=== PATIENT | female | born 1960 | race African-American/Black ===

== ENCOUNTER 2024-11-19 12:37 | Inpatient (IN) ==
[2024-11-19 13:44] LABS: Basophils # (auto) 0.05 K/uL (0.00-0.20); Basophils % (auto) 0.3 %; Eosinophils # (auto) 0.01 K/uL (0.00-0.50); Eosinophils % (auto) 0.1 %; Hematocrit (blood only) 37.8 % (37.0-47.0); Hemoglobin 12.4 g/dl (12.0-16.0); Immature Granulocytes # (auto) 0.11 K/uL (0.01-0.20); Immature Granulocytes % (auto) 0.7 %; Lymphocytes # (auto) 1.06 K/uL (1.20-3.40); Lymphocytes % (auto) 6.9 %; Mean Corpuscular Hemoglobin 28.8 pg (25.0-34.0); Mean Corpuscular Hgb Conc 32.8 g/dL (32.0-36.0); Mean Corpuscular Volume 87.9 fL (80.0-100.0); Monocytes # (auto) 0.84 K/uL (0.11-0.59); Monocytes % (auto) 5.4 %; Neutrophils # (auto) 13.38 K/uL (1.40-6.50); Neutrophils % (auto) 86.6 %; Platelet Count 186 K/uL (130-400); RDW Coefficient of Variation 14.6 % (11.5-14.5); White Blood Count 15.45 K/ul (4.8-10.8)
--- NOTE | 2024-11-19 13:55 | XRay Report ---
XR chest 1V portable CLINICAL HISTORY: Chest pain, nonspecific COMPARISON STUDY: Chest radiograph December 02, 2023. FINDINGS: Median sternotomy wires and prosthetic cardiac valve are noted. The heart is moderately enl arged. There is no evidence for pulmonary edema. Linear bibasilar densities favor atelectasis. There is no consolidation to suggest pneumonia. There is no pneumothorax or pleural effusion. IMPRESSION: 1. Cardiomegaly without evidence for pulmonary edema. 2. Linear bibasilar densities suggestive of atelectasis. ACT 112: Negative or not required by law. Electronically signed by: Adis Beltre M.D. 11/19/2024 1:54 PM
[2024-11-19] MEDS: SODIUM CHLORIDE 0.9% 1,000 ML IV SCH (14:02)
[2024-11-19] MEDS: dilTIAZem HCl 5 MG/ML 5 ML VIAL IV STA (14:02)
[2024-11-19] MEDS: SODIUM CHLORIDE 0.9% 500 ML IV ONE ×2 (14:02→15:33)
[2024-11-19 14:07] LABS: Albumin Level 3.4 gm/dl (3.4-5.0); BUN Creatinine Ratio 8.5 (10-20); Bilirubin,Total 1.1 mg/dl (0.2-1.0); Calcium 8.5 mg/dl (8.6-10.3); Creatinine Clr Calc Pharmacy 68.2 ml/min; Globulin 3.5 gm/dl (2.5-4.0); Magnesium 1.7 mg/dl (1.7-2.4); Potassium 4.2 mmol/L (3.5-5.1); Total Protein 6.9 gm/dl (6.0-8.3)
[2024-11-19 14:18] LABS: Troponin I High Sensitivity 142.3 pg/ml (0-14)
[2024-11-19] MEDS: MAGNESIUM SULFATE / D5W 1 GM/100 ML BAG IV ONE (14:24)
--- NOTE | 2024-11-19 14:35 | Emergency Department Note ---
Impression & Plan Atrial fibrillation with rapid ventricular response, Noncompliance with medications, Leukocytosis, Generalized weakness, Diarrhea ED Provider Note NAME: APARNA MCNALLY AGE: 64 SEX: Female INFORMANT: Patient and daughter ED PROVIDER(S): Pete Sebastian MD CHIEF COMPLAINT: Rapid A-fib and illness PLAN: Disposition: Admitted Outpatient prescription management: none Referral: None MEDICAL DECISION MAKING: Patient presented because of rapid atrial fibrillation from the primary office. She was in rapid A-fib with heart rates over 150. She was generally fatigued. Nonfocal on examination. [facility] service utilized for the history and physical examination. Daughter also present and helping with history. Patient had an IV established. ECG did not show any acute ischemia. Her CBC showed a leukocytosis. Chemistry panel revealed mildly low magnesium but normal potassium. Patient does have an elevated cardiac troponin. The patient had stool studies, BioFire, and chest x-ray ordered. Chest x-ray did not show any evidence of pneumonia. Mild cardiomegaly without failure present. Patient was given fluid bolus and started on diltiazem bolus and drip. Rate control was achieved. Head CT performed. No acute findings on head CT. Patient had good rate control however did have some mild hypotension. She received another fluid bolus and her rate was decreased and then held. BioFire respiratory negative. Cath urinalysis was ordered and further evaluation and management in the hospital was felt to be appropriate. The patient's case was discussed with Dr. Hanna of the [facility] hospitalist service. Case discussed and diagnostics were reviewed. Patient was evaluated in the ER and admitted for further management. Care/management discussed with: cafeteria manager, hospitalist Level of care consideration(s): After review of the information above and other included data, I feel the patient requires escalation of care to admission Triage Nursing notes: reviewed and agree them. Vital Signs: reviewed and remarkable for tachycardia Additional History obtained from: Patient's daughter Chronic Medical/Social Conditions affecting care: A-fib, medical noncompliance Prior/ Outside/ External records reviewed: none Differential Diagnosis: Infection, dehydration, metabolic abnormality, hypo/hyperglycemia, electrolyte disturbance, anemia, hypoxia, cardiac sources, intracerebral event, toxicologic, neurologic, as well as other pathologies. Diagnostics, independently interpreted by me: ECG: Twelve-lead ECG reveals atrial fibrillation with rapid ventricular response at [address] abnormality. No ST elevation. Cardiac Monitoring: Cardiac monitoring ordered by me: The patient was placed on continuous cardiac monitoring and observed. It revealed atrial fibrillation at 160 bpm. Medical decision rules: none Imaging studies: Chest x-ray. Findings: A chest x-ray was performed and revealed no pneumothorax, effusion, infiltrate, pulmonary edema, free air under the diaphragm, or wide mediastinum. Mild cardiomegaly noted. Head CT: A noncontrast CT scan of the head was performed and was negative for tumor, fracture, intracranial hemorrhage, or other acute pathology. HPI: 64 year old Female arrives for evaluation of rapid A-fib and generalized illness. Daughter is present and helps with the history. Patient was referred from the primary office after being found to have A-fib with RVR. They noted the patient was noncompliant with her metoprolol and patient notes that she takes it only from time to time. Daughter notes the patient has been generally weak over the last 2 weeks. She has had a runny nose. There has been some diarrhea over the last 3 days. Daughter feels the patient has had some history of confusion as well. She seems very fatigued. Patient denies any pain. Daughter did note that the patient did have some urinary urgency with an episode of incontinence this week. She also noted that the patient's legs were stiff and she was having difficulty walking. Pt denies LOC, headache, fevers, visual changes, neck pain, chest pain, breathing difficulties, nausea, vomiting, abdominal pain, back pain, melena, hematochezia, numbness, rash, or other complaints. PAST MEDICAL HISTORY: See Below, atrial fibrillation PAST SURGICAL HISTORY: See Below, SOCIAL HISTORY: See Below, lives with family HOME MEDICATIONS: See Below ALLERGIES: See Below VITALS: See Below PHYSICAL EXAMINATION: GENERAL: Awake, tired-appearing, in no distress HENT: Normocephalic, atraumatic. Oropharynx unremarkable. EYES: Normal conjunctiva. Sclera non-icteric. PERRLA. EOMI. NECK: Inspection normal. Non-tender. Supple. No nuchal rigidity. FROM. No masses. RESPIRATORY: Clear to auscultation. No wheezes. No rales. Normal respiratory effort. CARDIAC: Tachycardic rate. Irregular rhythm. No murmurs. No rubs. Extremities warm and well perfused. Pulses equal. No JVD. GI: Soft, non-distended. No tenderness to palpation. No rebound or guarding. No masses. RECTAL: Deferred. MUSCULOSKELETAL: Chest examination reveals no tenderness. The back is symmetrical on inspection without obvious abnormality. There is no CVA tenderness to palpation. No joint edema. LOWER EXTREMITIES: Calves are equal size bilaterally and non-tender. Trace pedal edema. No discoloration. NEURO: Normal sensorium. No sensory or motor deficits noted. SKIN: No rash or jaundice noted. PROCEDURES: none CRITICAL CARE: I have personally spent 35 minutes of critical care time in the direct management of this patient. This includes bedside care, interpretation of diagnostic studies, and testing, discussion with consultants, patient, and family members, and other required patient management activities. These minutes are in excess of all separately billable procedures. OBSERVATION NOTE: none Past Med/Surg History Problem List Diarrhea (Acute) Generalized weakness (Acute) Leukocytosis (Acute) Noncompliance with medications (Acute) Atrial fibrillation with rapid ventricular response (Acute) Heart failure with mid-range ejection fraction Cardiomyopathy Dyspnea on exertion Atrial fibrillation, permanent History of stroke Chronic GERD History of mitral valve replacement with mechanical valve Chronic anticoagulation (Chronic) History of heart valve replacement Medical History Rheumatic mitral valve disease Surgical History S/P wisdom tooth extraction Family History Father Colorectal cancer Denies family history of Ovarian cancer Prostate cancer Myocardial infarction Breast cancer Social History Smoking Status: Never smoker Second Hand Exposure: No; Do You Dip or Chew Tobacco: No; Hx Alcohol Use: Yes Alcohol type: wine Alcohol Intake Frequency: Monthly or Less Hx Substance Use: No Preferred Language: Croatian Communication Ability: Effective Communication Tools: IPad Visual Impairment: No Limitations Hearing Ability: Normal marital status: Single Current Living Situation: Other Current Living Situation Comment: WITH DAUGHTER current occupational status: unemployed and retired Feels Safe at Home: Yes Childhood Exposure to Second-Hand Smoke: No Diet: regular Dental Care, Regularly: No Physical Activity Frequency: Does not Exercise Seatbelt Use: always Sunscreen Use: Yes Allergies Allergies Allergy/AdvReac Type Severity Reaction Status Date / Time No Known Allergies Allergy Verified 11/19/24 15:42 Home Meds Home Medications Medication Instructions Recorded Confirmed acetaminophen 325 mg tablet 650 mg PO Q4H PRN headache 11/21/22 11/19/24 warfarin 4 mg tablet See Rx Instructions PO DAILY 10/29/24 11/19/24 Previous Rx's Medication Instructions Recorded hydrocortisone 2.5 % topical cream 1 applic topical BID PRN skin 10/01/21 irritation #28 grams compress.stocking,knee,reg,med #2 ea 04/28/23 digoxin 125 mcg (0.125 mg) tablet 125 mcg PO DAILY #90 tabs 11/06/23 metoprolol succinate 50 mg 200 mg (4 x 50 mg) PO DAILY #360 11/24/23 tablet,extended release 24 hr tabs furosemide 20 mg tablet 20 mg PO DAILY PRN short of breath 11/26/23 #90 tabs amoxicillin 500 mg capsule 2,000 mg (4 x 500 mg) PO .COMPLEX 01/19/24 #4 caps Results & Data (ED) Vital Signs Vital Signs - 24 hr 11/19/24 12:50 11/19/24 13:38 11/19/24 13:38 Temperature 36.8 C Temperature Source Skin Pulse Rate 98 H Pulse Rate [Apical] Pulse Rate from SpO2 Sensor Respiratory Rate 20 22 Respiratory Effort / Characteristics Non-Labored Spontaneous Respiratory Depth Normal Respiratory Pattern Regular Blood Pressure 122/64 Blood Pressure [Right Arm] Blood Pressure Mean 83 Blood Pressure Mean [Right Arm] Pulse Oximetry 99 98 Oxygen Delivery Method Room Air Room Air Room Air Sepsis Recent Fever Within 48 Hours No Sepsis New/Unexplained Change in Mental Status N/A Sepsis Action Taken by Nursing No Action Required 11/19/24 13:41 11/19/24 13:44 11/19/24 14:01 Temperature Temperature Source Pulse Rate 128 H 98 H Pulse Rate [Apical] 124 H Pulse Rate from SpO2 Sensor Respiratory Rate 20 24 Respiratory Effort / Characteristics Non-Labored Respiratory Depth Normal Respiratory Pattern Blood Pressure 103/68 Blood Pressure [Right Arm] 117/74 Blood Pressure Mean 77 Blood Pressure Mean [Right Arm] 88 Pulse Oximetry 97 97 Oxygen Delivery Method Room Air Room Air Sepsis Recent Fever Within 48 Hours Sepsis New/Unexplained Change in Mental Status Sepsis Action Taken by Nursing 11/19/24 14:12 11/19/24 14:21 11/19/24 14:51 Temperature Temperature Source Pulse Rate 96 H 93 H Pulse Rate [Apical] 119 H Pulse Rate from SpO2 Sensor 102 H 94 H Respiratory Rate 23 24 18 Respiratory Effort / Characteristics Non-Labored Respiratory Depth Normal Respiratory Pattern Blood Pressure Blood Pressure [Right Arm] 91/66 L Blood Pressure Mean Blood Pressure Mean [Right Arm] 74 Pulse Oximetry 98 99 98 Oxygen Delivery Method Room Air Sepsis Recent Fever Within 48 Hours Sepsis New/Unexplained Change in Mental Status Sepsis Action Taken by Nursing 11/19/24 15:30 11/19/24 15:32 11/19/24 15:57 Temperature Temperature Source Pulse Rate Pulse Rate [Apical] 97 H 110 H Pulse Rate from SpO2 Sensor Respiratory Rate 24 20 Respiratory Effort / Characteristics Non-Labored Spontaneous Non-Labored Spontaneous Respiratory Depth Normal Normal Respiratory Pattern Blood Pressure Blood Pressure [Right Arm] 96/65 L 89/60 L 105/70 Blood Pressure Mean Blood Pressure Mean [Right Arm] 75 69 81 Pulse Oximetry 98 96 Oxygen Delivery Method Room Air Room Air Sepsis Recent Fever Within 48 Hours Sepsis New/Unexplained Change in Mental Status Sepsis Action Taken by Nursing Laboratory Data 11/19/24 13:29 11/19/24 13:29 Lab Results 11/19/24 11/19/24 11/19/24 Range/Units 13:29 15:23 Unknown WBC 15.45 H (4.8-10.8) K/ul RBC 4.30 (4.20-5.40) M/uL Hgb 12.4 (12.0-16.0) g/dl Hct 37.8 (37.0-47.0) % MCV 87.9 (80.0-100.0) fL MCH 28.8 (25.0-34.0) pg MCHC 32.8 (32.0-36.0) g/dL RDW Std Deviation 47.0 H (36.4-46.3) fL RDW Coeff of Jason 14.6 H (11.5-14.5) % Plt Count 186 (130-400) K/uL MPV 12.0 (9.4-12.4) fL Immature Gran % (Auto) 0.7 % Neut % (Auto) 86.6 % Lymph % (Auto) 6.9 % [place] % (Auto) 5.4 % Eos % (Auto) 0.1 % Baso % (Auto) 0.3 % Neut # (Auto) 13.38 H (1.40-6.50) K/uL Lymph # (Auto) 1.06 L (1.20-3.40) K/uL [place] # (Auto) 0.84 H (0.11-0.59) K/uL Eos # (Auto) 0.01 (0.00-0.50) K/uL Baso # (Auto) 0.05 (0.00-0.20) K/uL Immature Gran # (Auto) 0.11 (0.01-0.20) K/uL PT 22.7 H (9.0-12.0) Seconds INR 2.2 H (0.9-1.1) APTT 35 H (21-31) Seconds PTT Ratio 1.3 Sodium 132 L (136-145) mmol/L Potassium 4.2 (3.5-5.1) mmol/L Chloride 98 (98-107) mmol/L Carbon Dioxide 29 (21-32) mmol/L Anion Gap 5 (3-11) BUN 6 (6-23) mg/dl Creatinine 0.71 (0.6-1.2) mg/dl Est Cr Clr Drug Dosing 68.2 ml/min eGFR 94.30 BUN/Creatinine Ratio 8.5 L (10-20) Glucose 136 H (70-99(Fasting)) mg/dl Calcium 8.5 L (8.6-10.3) mg/dl Magnesium 1.7 (1.7-2.4) mg/dl Total Bilirubin 1.1 H (0.2-1.0) mg/dl AST 18 (13-39) U/L ALT 6 L (7-52) U/L Alkaline Phosphatase 93 (34-104) U/L Troponin I High Sens 142.3 H* 167.1 H* (0-14) pg/ml Total Protein 6.9 (6.0-8.3) gm/dl Albumin 3.4 (3.4-5.0) gm/dl Globulin 3.5 (2.5-4.0) gm/dl Albumin/Globulin Ratio 1.0 (0.9-2) Adenovirus (PCR) Not Detected (NotDetected) B. pertussis DNA (PCR) Not Detected (NotDetected) B.parapertussis DNA PCR Not Detected (NotDetected) C. pneumoniae DNA (PCR) Not Detected (NotDetected) Coronavirus OC43 (PCR) Not Detected (NotDetected) Coronavirus HKU1 (PCR) Not Detected (NotDetected) Coronavirus 229E (PCR) Not Detected (NotDetected) SARS-CoV-2 (PCR) Not Detected (NotDetected) Coronavirus NL63 (PCR) Not Detected (NotDetected) Human Metapneumovir PCR Not Detected (NotDetected) Influenza Type A (PCR) Not Detected (NotDetected) Influenza Type B (PCR) Not Detected (NotDetected) M. pneumoniae (PCR) Not Detected (NotDetected) Parainfluenza 1 (PCR) Not Detected (NotDetected) Parainfluenza 2 (PCR) Not Detected (NotDetected) Parainfluenza 3 (PCR) Not Detected (NotDetected) Parainfluenza 4 (PCR) Not Detected (NotDetected) RSV (PCR) Not Detected (NotDetected) Entero/Rhino (PCR) Not Detected (NotDetected) Administered Medications Sodium Chloride (Nss) 1,000 mls @ 125 mls/hr IV .Q8H [facility] Stop: 11/22/24 13:59 Last Admin: 11/19/24 14:02 Dose: 125 mls/hr Documented By: MERCEDES Diltiazem HCl 125 mg/ Dextrose 125 mls @ 5 mls/hr IV .Q24H [facility]; Protocol Stop: 12/19/24 14:14 Last Titration: 11/19/24 15:23 Dose: 2.5 mg/hr, 2.5 mls/hr Documented By: MMG Co-signed By: SERENITY Admin: 11/19/24 14:50 Dose: 5 mg/hr, 5 mls/hr Documented By: MMG Co-signed By: PHAN Magnesium Sulfate/Dextrose (Magnesium Sulfate / D5w) 1 gm in 100 mls @ 50 mls/hr IV ONE ONE Stop: 11/19/24 16:10 Last Admin: 11/19/24 14:24 Dose: 50 mls/hr Documented By: MMG Discontinued Medications Diltiazem HCl (Diltiazem Hcl 5 Mg/Ml 5 Ml Vial) 10 mg IV NOW STA Stop: 11/19/24 13:53 Last Admin: 11/19/24 14:02 Dose: 10 mg Documented By: MERCEDES Co-signed By: YAS Sodium Chloride (Nss) 500 mls @ 999 mls/hr IV .Q31M ONE Stop: 11/19/24 14:22 Last Infusion: 11/19/24 14:29 Dose: Infused Documented By: Admin: 11/19/24 14:02 Dose: 999 mls/hr Documented By: MERCEDES Sodium Chloride (Nss) 500 mls @ 999 mls/hr IV .Q31M ONE Stop: 11/19/24 16:01 Last Admin: 11/19/24 15:33 Dose: 999 mls/hr Imaging Data Radiologist's Impression: Chest X-Ray 11/19/24 12:55 XR chest 1V portable CLINICAL HISTORY: Chest pain, nonspecific COMPARISON STUDY: Chest radiograph December 02, 2023. FINDINGS: Median sternotomy wires and prosthetic cardiac valve are noted. The heart is moderately enlarged. There is no evidence for pulmonary edema. Linear bibasilar densities favor atelectasis. There is no consolidation to suggest pneumonia. There is no pneumothorax or pleural effusion. IMPRESSION: 1. Cardiomegaly without evidence for pulmonary edema. 2. Linear bibasilar densities suggestive of atelectasis. ACT 112: Negative or not required by law. Electronically signed by: Adis Beltre M.D. 11/19/2024 1:[address] 11/19/24 13:57 CT SCAN OF THE BRAIN WITHOUT IV CONTRAST CLINICAL HISTORY: Weakness. Confusion. COMPARISON STUDY: TECHNIQUE: Unenhanced axial CT scan of the brain was performed from the vertex to the skull base. A dose lowering technique was utilized adhering to the principles of ALARA. CT DOSE: 547.75 mGy.cm FINDINGS: Brain parenchyma: No acute intracranial hemorrhage, midline shift or mass effect is present. Wilson-white matter differentiation is preserved. There are no extra- axial fluid collections. There are no findings to suggest acute dural sinus thrombosis or acute territorial infarct. A 1.6 cm focus of encephalomalacia within the medial right cerebellar hemisphere favors an old infarct. Small hypodensities within the bilateral basal ganglia favor prominent perivascular spaces although old infarcts could appear similar. Ventricles, sulci, cisterns: There is no hydrocephalus. The basal cisterns are patent. Calvarium: Unremarkable. Sinuses and mastoids: The visualized paranasal sinuses are clear. The mastoid air cells are well pneumatized. Orbits: The bony orbits are grossly intact. IMPRESSION: 1. No acute intracranial findings. 2. 1.6 cm focus of encephalomalacia within the right cerebellar hemisphere which favors an old infarct. ACT 112: Negative or not required by law. Electronically signed by: Adis Beltre M.D. 11/19/2024 3:02 PM Discharge Plan Visit Data Chief Complaint: Cardiac Assessment Stated Complaint: HIGH HEART RATE, WEAKNESS, DIARRHEA, MEMORY LOSS ED Provider: Pete Sebastian Discharge Problem: Atrial fibrillation with rapid ventricular response, Noncompliance with medications, Leukocytosis, Generalized weakness, Diarrhea Patient Disposition: Admitted As Inpatient Condition: Serious Forms Stand Alone Forms: Lenda Prescriptions Prescriptions: No Action acetaminophen 325 mg tablet 650 mg PO Q4H PRN (Reason: headache) warfarin 4 mg tablet See Rx Instructions PO DAILY Rx Instructions: PER PT'S DAUGHTER "UNSURE IF TAKING" 6mg qSaturday & 4mg x 6 days or as directed by [facility] metoprolol succinate 50 mg tablet extended release 24 hr 200 mg PO DAILY Qty: 360 3RF Rx Instructions: PER PT'S DAUGHTER "UNSURE WHEN SHE LAST TOOK THIS MED". furosemide 20 mg tablet 20 mg PO DAILY PRN (Reason: short of breath) Qty: 90 1RF Rx Instructions: take 2 days and then qday as needed (DME) compress.stocking,knee,reg,med Misc See Rx Instructions .Route Qty: 2 0RF Rx Instructions: As directed 15mmHg, R60.9 hydrocortisone 2.5 % cream 1 applic topical BID PRN (Reason: skin irritation) Qty: 28 1RF digoxin 125 mcg (0.125 mg) tablet 125 mcg PO DAILY Qty: 90 3RF Rx Instructions: PER PT'S DAUGHTER "BOTTLE EMPTY, UNSURE IF TAKING". amoxicillin 500 mg capsule 2,000 mg PO .COMPLEX Qty: 4 5RF Rx Instructions: 2,000 mg PO ; Take 4 caps 30-60 minutes prior to dental appointment Referrals Referrals: Angi Epperson MD [Primary Care Provider] -
[2024-11-19 14:49] LABS: INR 2.2 (0.9-1.1); Partial Thromboplastin Ratio 1.3; Partial Thromboplastin Time 35 Seconds (21-31); Prothrombin Time 22.7 Seconds (9.0-12.0)
[2024-11-19] MEDS: dilTIAZem HCL 125 MG in DEXTROSE 5% 100 ML IV SCH (14:50)
--- NOTE | 2024-11-19 15:05 | CT Scan Report ---
CT SCAN OF THE BRAIN WITHOUT IV CONTRAST CLINICAL HISTORY: Weakness. Confusion. COMPARISON STUDY: TECHNIQUE: Unenhanced axial CT scan of the brain was performed from the vertex to the skull base. A dose lowering technique was utilized adhering to the principles of ALARA. CT DOSE: 547.75 mGy.cm FINDINGS: Brain parenchyma: No acute intracranial hemorrhage, midline shift or mass effect is present. Wilson-whi te matter differentiation is preserved. There are no extra-axial fluid collections. There are no find ings to suggest acute dural sinus thrombosis or acute territorial infarct. A 1.6 cm focus of encephal omalacia within the medial right cerebellar hemisphere favors an old infarct. Small hypodensities wit hin the bilateral basal ganglia favor prominent perivascular spaces although old infarcts could appea r similar. Ventricles, sulci, cisterns: There is no hydrocephalus. The basal cisterns are patent. Calvarium: Unremarkable. Sinuses and mastoids: The visualized paranasal sinuses are clear. The mastoid air cells are well pneu matized. Orbits: The bony orbits are grossly intact. IMPRESSION: 1. No acute intracranial findings. 2. 1.6 cm focus of encephalomalacia within the right cerebellar hemisphere which favors an old infarc t. ACT 112: Negative or not required by law. Electronically signed by: Adis Beltre M.D. 11/19/2024 3:02 PM
[2024-11-19] MEDS: STAT IV Infusion **Titration per Protocol STA (15:33)
[2024-11-19 15:36] LABS: Adenovirus PCR Not Detected (NotDetected); Bordetella parapertussis PCR Not Detected (NotDetected); Bordetella pertussis PCR Not Detected (NotDetected); Chlamydia pneumoniae PCR Not Detected (NotDetected); Coronavirus 229E PCR Not Detected (NotDetected); Coronavirus CoV-2 (COVID19)PCR Not Detected (NotDetected); Coronavirus HKU1 PCR Not Detected (NotDetected); Coronavirus NL63 PCR Not Detected (NotDetected); Coronavirus OC43PCR Not Detected (NotDetected); Human Metapneumovirus PCR Not Detected (NotDetected); Influenza A PCR Not Detected (NotDetected); Influenza B PCR Not Detected (NotDetected); Mycoplasma pneumoniae PCR Not Detected (NotDetected); Parainfluenza Virus 1 PCR Not Detected (NotDetected); Parainfluenza Virus 2 PCR Not Detected (NotDetected); Parainfluenza Virus 3 PCR Not Detected (NotDetected); Parainfluenza Virus 4 PCR Not Detected (NotDetected); Respiratory Syncytial VirusPCR Not Detected (NotDetected); Rhinovirus/Enterovirus PCR Not Detected (NotDetected)
[2024-11-19] MEDS ORDERED: ONDANSETRON INJ 2 MG/ML 2 ML VIAL IV PRN (15:40)
--- NOTE | 2024-11-19 15:57 | History & Physical Report ---
Date of Service November 19, 2024 Assessment & Plan (1) Atrial fibrillation with rapid ventricular response: Plan: -on cardizem drip -con't metoprolol, digoxin -coumadin -echo -cardiology consulted -pt has been non compliant with medications (2) Heart failure with mid-range ejection fraction: Plan: -lasix held 2nd to hypotension (3) Diarrhea: Plan: -given IVF -likely 2nd to viral enteritis History of Present Illness Chief Complaint: sent from PMD office with afib with RVR Primary Care Provider: Angi Epperson MD Pt is a 64 y/o female with pmh of afib on coumadin, CHF, HTN, who present from PMD office after being found to be in afib with RVR. Pt's daughter states she is non compliant with her meds and takes her metoprolol from time to time. She also states the patient has been weak with episodes of diarrhea and confusion. In the ER patient had CT head which was negative. UA pending at this time. Pt denies any abdominal pain or fever. In the ER she was given a cardizem bolus and started on cardizem drip along with IVF. She is being admitted for further treatment of her afib with RVR. Allergies Allergy/AdvReac Type Severity Reaction Status Date / Time No Known Allergies Allergy Verified 11/19/24 15:42 Home Medications Medication Instructions Recorded Confirmed Type hydrocortisone 2.5 % topical cream 1 applic topical BID PRN skin 10/01/21 11/19/24 Rx irritation #28 grams acetaminophen 325 mg tablet 650 mg PO Q4H PRN headache 11/21/22 11/19/24 History compress.stocking,knee,reg,med #2 ea 04/28/23 11/19/24 Rx digoxin 125 mcg (0.125 mg) tablet 125 mcg PO DAILY #90 tabs 11/06/23 11/19/24 Rx metoprolol succinate 50 mg 200 mg (4 x 50 mg) PO DAILY #360 11/24/23 11/19/24 Rx tablet,extended release 24 hr tabs furosemide 20 mg tablet 20 mg PO DAILY PRN short of breath 11/26/23 11/19/24 Rx #90 tabs amoxicillin 500 mg capsule 2,000 mg (4 x 500 mg) PO .COMPLEX 01/19/24 11/19/24 Rx #4 caps warfarin 4 mg tablet See Rx Instructions PO DAILY 10/29/24 11/19/24 History Past Med/Surg History Problem List Diarrhea (Acute) Generalized weakness (Acute) Leukocytosis (Acute) Noncompliance with medications (Acute) Atrial fibrillation with rapid ventricular response (Acute) Heart failure with mid-range ejection fraction Cardiomyopathy Dyspnea on exertion Atrial fibrillation, permanent History of stroke Chronic GERD History of mitral valve replacement with mechanical valve Chronic anticoagulation (Chronic) History of heart valve replacement Medical History Rheumatic mitral valve disease Surgical History S/P wisdom tooth extraction Family History Father Colorectal cancer Denies family history of Ovarian cancer Prostate cancer Myocardial infarction Breast cancer Social History Smoking Status: Never smoker Second Hand Exposure: No; Do You Dip or Chew Tobacco: No; Hx Alcohol Use: Yes Alcohol type: wine Alcohol Intake Frequency: Monthly or Less Hx Substance Use: No Preferred Language: Pashto Communication Ability: Effective Communication Tools: IPad Visual Impairment: No Limitations Hearing Ability: Normal marital status: Single Current Living Situation: Other Current Living Situation Comment: WITH DAUGHTER current occupational status: unemployed and retired Feels Safe at Home: Yes Childhood Exposure to Second-Hand Smoke: No Diet: regular Dental Care, Regularly: No Physical Activity Frequency: Does not Exercise Seatbelt Use: always Sunscreen Use: Yes Review of Systems Review of Systems: CONST: Negative for fever, body aches and chills. HENT: Negative for neck pain/stiffness, headache, congestion, sore throat, swelling. EYES: Negative for discharge/pain or vision changes. RESP: Negative for cough/hemoptysis and shortness of breath. CV: Negative chest pain, difficulty breathing, palpitations. ABD: Negative pain, nausea, vomiting. Diarrhea : Negative increase frequency, dysuria, blood in urine or stool. MUSC: Negative for muscle aches, edema. SKIN: Negative rash, lesions/sores. NEURO: Negative headache, dizziness, weakness. Physical Exam Physical Exam: GENERAL APPEARANCE NAD, activity normal for age, well developed/ well nourished, no cyanosis, pallor, or diaphoresis. EYES lids/conjunctiva normal. EARS/NOSE/THROAT Mucous membranes moist, nares normal, lips/teeth normal uvula midline without oral pharyngeal erythema, exudate or swelling TMs normal bilaterally. No lymphangitis/lymphedema. HEAD/NECK normocephalic atraumatic, no facial trauma, neck is supple. RESPIRATORY respiratory effort normal, speaks in full sentences, no tripod position, no accessory muscle use. Lungs clear to auscultation without rhonchi, wheezes, rales CARDIAC Regular rate and rhythm, no edema. ABDOMINAL Soft, ND/NT. No evidence of fluid wave. No pulsatile masses on exam, rebound tenderness, Cordero sign or pain over Mcburney's point. MUSCLES/EXTREMITIES No abnormal range of motion, no swelling. SKIN Warm, pink and dry. No rashes, dermatoses, petechiae or lesions. NEUROLOGICAL Speech is clear and appropriate. Normal level of consciousness. Gait and coordination are normal. 5/5 strength in all extremities. PSYCH Normal mood and affect. Judgement/competence is appropriate Results & Data Results & Data Vital Signs (Past 12 Hours) Vital Signs Temp Pulse Pulse Resp BP BP Pulse Ox 11/19/24 15:32 89/60 L 11/19/24 15:30 97 H 24 96/65 L 98 11/19/24 14:51 119 H 18 91/66 L 98 11/19/24 14:21 93 H 24 99 11/19/24 14:12 96 H 23 98 11/19/24 14:01 98 H 24 103/68 97 11/19/24 13:44 124 H 20 117/74 97 11/19/24 13:41 128 H 11/19/24 13:38 22 98 11/19/24 13:38 11/19/24 12:50 36.8 C 98 H 20 122/64 99 O2 Del Method 11/19/24 15:32 11/19/24 15:30 Room Air 11/19/24 14:51 Room Air 11/19/24 14:21 11/19/24 14:12 11/19/24 14:01 Room Air 11/19/24 13:44 Room Air 11/19/24 13:41 11/19/24 13:38 Room Air 11/19/24 13:38 Room Air 11/19/24 12:50 Room Air PG Care Time/CCT Total # of Minutes Spent Total Time Spent with Patient: Total time spent is greater than 50% in coordination of care (as documented) at patient's floor/unit and/or counseling patient: Coding Level of Care Code 07548 INT INP/OBS CARE 2/55MIN Diagnoses Atrial fibrillation with rapid ventricular response I48.91 Heart failure with mid-range ejection fraction I50.22 Diarrhea R19.7
[2024-11-19] MEDS: METOPROLOL SUCC 50MG EXT REL TAB PO ONE (16:08)
[2024-11-19 16:16] LABS: Appearance Urine Clear (Clear); Bilirubin Urine Negative (Negative); Blood Urine Negative (Negative); Color Urine Yellow; Glucose Urine UA Negative (Negative); Ketones Urine Negative (Negative); Leukocyte Esterase Urine Negative (Negative); Nitrite Urine Negative (Negative); Protein Urine Negative (Negative); Specific Gravity Urine 1.007 (1.000-1.030); Urobilinogen Urine Negative (Negative); pH Urine 6.5 (4.5-7.5)
[2024-11-19] MEDS: DIGOXIN 0.125 MG TAB PO ONE (17:11)
[2024-11-19] MEDS: SODIUM CHLORIDE 0.9% 1,000 ML IV ONE (18:09)
[2024-11-19 18:21] LABS: Mean Corpuscular Hemoglobin 28.9 pg (25.0-34.0); Mean Corpuscular Hgb Conc 32.4 g/dL (32.0-36.0); Mean Corpuscular Volume 89.5 fL (80.0-100.0); Mean Platelet Volume 11.7 fL (9.4-12.4); Platelet Count 167 K/uL (130-400); RDW Coefficient of Variation 14.6 % (11.5-14.5); White Blood Count 13.18 K/ul (4.8-10.8)
[2024-11-19 18:40] LABS: BUN Creatinine Ratio 8.6 (10-20); Calcium 7.5 mg/dl (8.6-10.3); Potassium 3.8 mmol/L (3.5-5.1)
[2024-11-19] MEDS: WARFARIN SOD 4 MG TAB PO ONE (20:34)
--- NOTE | 2024-11-19 23:06 | Electrocardiogram Report ---
Test Reason : Blood Pressure : */* mmHG Vent. Rate : 158 BPM Atrial Rate : * BPM P-R Int : * ms QRS Dur : 78 ms QT Int : 244 ms P-R-T Axes : * 52 -9 degrees QTcB Int : 395 ms Atrial fibrillation with rapid ventricular response with premature ventricular or aberrantly conducte d complexes Nonspecific T wave abnormality Abnormal ECG When compared with ECG of 04-Dec-2023 13:51, (unconfirmed) Vent. rate has increased by 52 bpm Confirmed by Nicho Mena ([id number]) on 11/19/2024 11:06:16 PM Referred By: Confirmed By: Nicho Mena
[2024-11-20 06:45] LABS: Hematocrit (blood only) 38.9 % (37.0-47.0); Hemoglobin 12.4 g/dl (12.0-16.0); Mean Corpuscular Hemoglobin 28.7 pg (25.0-34.0); Mean Corpuscular Hgb Conc 31.9 g/dL (32.0-36.0); Mean Platelet Volume 12.1 fL (9.4-12.4); Platelet Count 190 K/uL (130-400); RDW Coefficient of Variation 14.8 % (11.5-14.5); RDW Standard Deviation 49.1 fL (36.4-46.3); Red Blood Count 4.32 M/uL (4.20-5.40); White Blood Count 11.78 K/ul (4.8-10.8)
[2024-11-20 07:10] LABS: BUN Creatinine Ratio 8.2 (10-20); Creatinine Clr Calc Pharmacy 76.1 ml/min; INR 2.9 (0.9-1.1); Prothrombin Time 28.4 Seconds (9.0-12.0)
--- NOTE | 2024-11-20 07:42 | Hospitalist Progress Note ---
Date of Service November 20, 2024 Assessment & Plan (1) Atrial fibrillation with rapid ventricular response: Plan: -on cardizem drip -con't metoprolol, digoxin -coumadin -echo -cardiology consulted -pt has been non compliant with medications (2) Heart failure with mid-range ejection fraction: Plan: -lasix held 2nd to hypotension (3) Diarrhea: Plan: -given IVF -likely 2nd to viral enteritis Plan 64 yo F with PMHx of AFib on coumadin, HFmEF, HTN brought to [facility] on 11/19/24 from PCP office after being found to be in AFib with RVR. Per daughter's report, pt is noncompliant with her meds and takes her metoprolol from time to time. Recently, pt has been weak after having episodes of diarrhea and confusion. #Atrial fibrillation with rapid ventricular response - possibly precipitated by noncompliance as well as diarrheal illness - on cardizem drip - con't metoprolol 200mg po daily, digoxin 0.125mg po daily - warfarin d/c-ed, placed on hep gtt - echo : mitral valve vegetation vs thrombus, RVSP 50-60 mmHg, mild hypokinesis of LV, EF: 40-45% - cardiology recs appreciated #Mitral valve vegetation - ECHO showing moderate size vegetation or mass on the mitral valve on the ventricular side (not present on ECHO from 12/2023) - discussed with cardiology, BCx, ESR, CRP drawn, started pt on heparin gtt (warfarin d/c-ed), will start pt on vanc / zosyn - THUY planned for Friday, NPO p MN placed for Friday. #HFrEF: - last ECHO 12/2023, EF 50-55%, currently EF is 40-45% - lasix held 2nd to hypotension #Elevated troponin - suspect Type II [place] - trend at this time #Hyponatremia - improving with hydration #Leukocytosis - endocarditis vs viral enteritis #Diarrhea - likely 2nd to viral enteritis - s/p IVF #HTN - cont metoprolol Admission and Anticipated Discharge Date Admission Date: November 19, 2024 Subjective No acute events overnight Per daughter, pt has been having increasing sedation over the past few weeks and decreased motivation. She stated that the pt thought she was just having flu. She also noted that pt does not take her metoprolol regularly. She does take her coumadin but not at the same time. Review of Systems Review of Systems: comprehensive ROS neg Physical Exam Physical Exam: Gen: NAD, lying in bed comfortable HEENT: NC/AT, MMM Lungs: CTAB CVS: [id number], irregular Abd: soft, nl bowel sounds, NT : no underwood Ext: no edema Neuro: awake, fatigued Psych: calm Results & Data Results & Data Vital Signs (Past 12 Hours) Vital Signs Temp Pulse Pulse Resp BP Pulse Ox O2 Del Method 11/20/24 04:20 36.5 C 89 17 106/78 94 Room Air 11/19/24 23:50 36.6 C 94 H 17 103/73 95 Room Air 11/19/24 21:53 90 11/19/24 21:04 74 11/19/24 20:02 80 PG Care Time/CCT Total # of Minutes Spent Total Time Spent with Patient: Total time spent is greater than 50% in coordination of care (as documented) at patient's floor/unit and/or counseling patient: Coding Level of Care Code 56015 SUB INP/OBS CARE 3/50MIN Diagnoses Atrial fibrillation with rapid ventricular response I48.91 Heart failure with mid-range ejection fraction I50.22 Diarrhea R19.7
[2024-11-20 08:23] LABS: Troponin I High Sensitivity 137.3 pg/ml (0-14)
[2024-11-20] MEDS: METOPROLOL SUCC 50MG EXT REL TAB PO SCH (09:03)
--- NOTE | 2024-11-20 11:12 | Cardiology Consultation ---
Date of Consultation November 20, 2024 Assessment & Plan (1) History of mitral valve replacement with mechanical valve: (2) Atrial fibrillation, permanent: (3) History of stroke: (4) Fever: (5) Leukocytosis: (6) Noncompliance with medications: Plan The echo findings were discussed with the hospitalist service. Would check CRP as well as blood cultures and ESR. Depending on those results if the sed rate and CRP come back elevated would presumptively start her on antibiotics. In the meantime we will change her Coumadin over to IV heparin. Will anticipate doing a transesophageal echo on her Friday. I will review her case with Dr. Birch. Would recommend maximizing her beta-ricky therapy to control her heart rate and stress noncompliance. History of Present Illness Reason for Consultation: Cardiac evaluation Attending Physician: Akila Griffith MD History of Present Illness Ailyn Coronado is a 63-year-old speaking woman who is known to Dr. Kayden Birch. She has been here in the [facility] for approximately 2 to 3 years according to her daughter. She has a longstanding history of rheumatic mitral valve disease which initially presented as stroke back in 1999 and was followed by a mechanical mitral valve replacement at [facility] in [place]. She has chronic atrial fibrillation as well and is on anticoagulation with Coumadin. Her daughter was available in the room and served as punch press setter for the patient. According to the daughter about 2 weeks ago she developed a period of confusion which seem to be worse than her prior baseline but the daughter also notes that the mother had fevers on that particular day associated with chills. Apparently the symptoms resolved on their own up until her coming into the hospital with A-fib with rapid ventricular response. Apparently the patient has difficulty taking her metoprolol 200 mg tablet and this is subsequently been changed to 4-50 mg tablets but she does not want to take somebody pills and there is an issue of noncompliance. Reviewing her protimes over the last several months her INRs have generally been above 2 however not in the recommended 2.5-3.5 range entirely. Her echo was done this morning and it was reviewed and compared to her prior echo from 2022 which was done at the [facility] cardiology office. There appears to be a new mass on the ventricular surface of the mitral valve. MR is not appreciated but she does have significant severe tricuspid regurgitation. The right heart is dilated as well. This has the appearance of a possible clot but cannot rule out endocarditis. This was discussed with the daughter and I am recommending that she undergo a transesophageal echo on Friday to further assess this valve. In the meantime because her INR was initially not therapeutic when she came in I am recommending that we start her on IV heparin until a better understanding of the problem is. Allergies Allergy/AdvReac Type Severity Reaction Status Date / Time No Known Allergies Allergy Verified 11/19/24 15:42 Home Medications Medication Instructions Recorded Confirmed Type hydrocortisone 2.5 % topical cream 1 applic topical BID PRN skin 10/01/21 11/19/24 Rx irritation #28 grams acetaminophen 325 mg tablet 650 mg PO Q4H PRN headache 11/21/22 11/19/24 History compress.stocking,knee,reg,med #2 ea 04/28/23 11/19/24 Rx digoxin 125 mcg (0.125 mg) tablet 125 mcg PO DAILY #90 tabs 11/06/23 11/19/24 Rx metoprolol succinate 50 mg 200 mg (4 x 50 mg) PO DAILY #360 11/24/23 11/19/24 Rx tablet,extended release 24 hr tabs furosemide 20 mg tablet 20 mg PO DAILY PRN short of breath 11/26/23 11/19/24 Rx #90 tabs amoxicillin 500 mg capsule 2,000 mg (4 x 500 mg) PO .COMPLEX 01/19/24 11/19/24 Rx #4 caps warfarin 4 mg tablet See Rx Instructions PO DAILY 10/29/24 11/19/24 History Patient History Medical History Rheumatic mitral valve disease Surgical History S/P wisdom tooth extraction Family History Father Colorectal cancer Denies family history of Ovarian cancer Prostate cancer Myocardial infarction Breast cancer Social History Smoking Status: Never smoker Second Hand Exposure: No; Do You Dip or Chew Tobacco: No; Hx Alcohol Use: Yes Alcohol type: wine Alcohol Intake Frequency: Monthly or Less Hx Substance Use: No Preferred Language: Upper Sorbian Communication Ability: punch press setter Communication Tools: IPad Visual Impairment: No Limitations Hearing Ability: Normal Rn Urology Required: Yes Beliefs That Will Affect Care: None marital status: Single Current Living Situation: Other Current Living Situation Comment: lives with daughter current occupational status: unemployed and retired Feels Safe at Home: Yes Childhood Exposure to Second-Hand Smoke: No Diet: regular Dental Care, Regularly: No Physical Activity Frequency: Does not Exercise Seatbelt Use: always Sunscreen Use: Yes Assistive Devices: None and Glasses Review of Systems Review of Systems: All systems reviewed & are unremarkable except as noted in HPI & below Constitutional: As noted above Physical Exam Physical Exam: Awake at times somewhat disoriented according to the daughter Respiratory: Clear to auscultation bilaterally Cardiovascular: Mechanical valve sounds are noted systolic murmur noted along the right border Results & Data Vital Signs (Past 12 Hours) Vital Signs Temp Pulse Pulse Resp BP Pulse Ox O2 Del Method 11/20/24 08:06 37.8 C H 100 H 18 100/77 96 Room Air 11/20/24 07:00 110 H 11/20/24 04:20 36.5 C 89 17 106/78 94 Room Air 11/19/24 23:50 36.6 C 94 H 17 103/73 95 Room Air Laboratory Results Abnormal lab results 11/19/24 11/19/24 11/19/24 Range/Units 13:29 15:23 18:04 WBC 15.45 H 13.18 H (4.8-10.8) K/ul RBC 3.80 L (4.20-5.40) M/uL Hgb 11.0 L (12.0-16.0) g/dl Hct 34.0 L (37.0-47.0) % MCHC (32.0-36.0) g/dL RDW Std Deviation 47.0 H 47.0 H (36.4-46.3) fL RDW Coeff of Jason 14.6 H 14.6 H (11.5-14.5) % Neut # (Auto) 13.38 H (1.40-6.50) K/uL Lymph # (Auto) 1.06 L (1.20-3.40) K/uL [place] # (Auto) 0.84 H (0.11-0.59) K/uL PT 22.7 H (9.0-12.0) Seconds INR 2.2 H (0.9-1.1) APTT 35 H (21-31) Seconds Sodium 132 L 134 L (136-145) mmol/L BUN 5 L (6-23) mg/dl Creatinine 0.58 L (0.6-1.2) mg/dl BUN/Creatinine Ratio 8.5 L 8.6 L (10-20) Glucose 136 H 108 H (70-99(Fasting)) mg/dl Calcium 8.5 L 7.5 L (8.6-10.3) mg/dl Total Bilirubin 1.1 H (0.2-1.0) mg/dl ALT 6 L (7-52) U/L Troponin I High Sens 142.3 H* 167.1 H* (0-14) pg/ml 11/20/24 Range/Units 06:07 WBC 11.78 H (4.8-10.8) K/ul RBC (4.20-5.40) M/uL Hgb (12.0-16.0) g/dl Hct (37.0-47.0) % MCHC 31.9 L (32.0-36.0) g/dL RDW Std Deviation 49.1 H (36.4-46.3) fL RDW Coeff of Jason 14.8 H (11.5-14.5) % Neut # (Auto) (1.40-6.50) K/uL Lymph # (Auto) (1.20-3.40) K/uL [place] # (Auto) (0.11-0.59) K/uL PT 28.4 H (9.0-12.0) Seconds INR 2.9 H (0.9-1.1) APTT (21-31) Seconds Sodium (136-145) mmol/L BUN 5 L (6-23) mg/dl Creatinine (0.6-1.2) mg/dl BUN/Creatinine Ratio 8.2 L (10-20) Glucose 121 H (70-99(Fasting)) mg/dl Calcium 8.0 L (8.6-10.3) mg/dl Total Bilirubin (0.2-1.0) mg/dl ALT (7-52) U/L Troponin I High Sens 137.3 H* (0-14) pg/ml ECG Additional Comments: A-fib with RVR
[2024-11-20] MEDS: HEPARIN 25000 UNIT/500 ML D5W 25,000 UNITS/500 ML BAG IV SCH (13:39)
[2024-11-20] MEDS: Heparin IV Adult Wt-Based Standard *NO* INITIAL Bolus Protocol IV STA (13:39)
[2024-11-20] MEDS ORDERED: VANCOMYCIN CONSULT ACTIVE PRN (14:11)
[2024-11-20] MEDS ORDERED: VANCOMYCIN HCL 1,000 MG/270 ML BAG IV SCH (14:15)
[2024-11-20] MEDS ORDERED: 4.5GM X1 IV STA (14:32)
[2024-11-20] MEDS: VANCOMYCIN HCL 1,250 MG in SODIUM CHLORIDE 0.9% 250 ML IV STA (14:51)
--- NOTE | 2024-11-20 15:07 | Pharmacy Report ---
Pharmacy PK ABX Note - Date of Service November 20, 2024 - Assessment and Plan Assessment 64 year old F receiving Vancomycin and Ceftriaxone for treatment of endocarditis. * Day #1 of antimicrobial therapy. * TTE showed mitral valve vegetation. Planned THUY for Friday. * Low grade fever, 37.8 C. Leukocytosis of 12k. SCr 0.61 mg/dL, near baseline. ESR/CRP mildly elevated. Blood cultures pending. Plan Vancomycin * Loading dose: 1250 mg IV x 1 * Maintenance dose: 1000 mg IV every 12 hours * Regimen is predicted to achieve target AUC/IMELDA of 400-600 mg/L.hr * Random level ordered for: 11/22/24 Ceftriaxone * 2000 mg IV every 12 hours Pharmacy will continue to follow and will adjust dose/frequency as necessary. Thank you. Pharmacy has transitioned to AUC monitoring for vancomycin. AUC/IMELDA is the preferred PK/PD target and is associated with decreased risk of nephrotoxicity compared to traditional trough targets.
[2024-11-20] MEDS ORDERED: WARFARIN SOD 4 MG TAB PO SCH (16:00)
[2024-11-20] MEDS ORDERED: WARFARIN SOD 6 MG TAB PO SCH (16:00)
[2024-11-20] MEDS: cefTRIAXone SODIUM 2,000 MG/50 ML BAG IV SCH (16:28)
[2024-11-20] MEDS: DIGOXIN 0.125 MG TAB PO SCH (17:55)
[2024-11-20 20:09] LABS: ANTI-Xa, UFH(UnfractionatedHep 0.18 IU/ml (0.3-0.7)
[2024-11-20] MEDS: HEPARIN SOD (PORCINE) 1000 UNIT/ML IV ONE (21:00)
[2024-11-20] MEDS ORDERED: PIPERACILLIN/TAZOBACTAM 4.5 GM/100 ML BAG IV SCH (22:00)
[2024-11-21] MEDS: VANCOMYCIN HCL 1,000 MG/270 ML BAG IV SCH (02:09)
[2024-11-21 04:25] LABS: ANTI-Xa, UFH(UnfractionatedHep 0.29 IU/ml (0.3-0.7)
[2024-11-21 04:42] LABS: A calco-baum cmplx NotReported Not Detected (NotDetected); Bact fragilis Not Reported Not Detected (NotDetected); Blood Culture Id Panel See PCR Comment (NotDetected); C auris Not Reported Not Detected (NotDetected); Calbicans Not Reported Not Detected (NotDetected); Candida glabrata Not Reported Not Detected (NotDetected); Candida krusei Not Reported Not Detected (NotDetected); Cneoformans/gatti Not Reported Not Detected (NotDetected); Cparapsilosis Not Reported Not Detected (NotDetected); Ctropicalis Not Reported Not Detected (NotDetected); E cloacae compx Not Reported Not Detected (NotDetected); Efaecalis Not Reported Not Detected (NotDetected); Efaecium Not Reported Not Detected (NotDetected); Enterobacterales Not Reported Not Detected (NotDetected); Escherichia coli Not Reported Not Detected (NotDetected); H influenzae Not Reported Not Detected (NotDetected); K aerogenes Not Reported Not Detected (NotDetected); Koxytoca Not Reported Not Detected (NotDetected); Kpneumoniae grp Not Reported Not Detected (NotDetected); Lmonocyt Not Reported Not Detected (NotDetected); N meningitidis Not Reported Not Detected (NotDetected); P aeruginosa Not Reported Not Detected (NotDetected); Proteus spp Not Reported Not Detected (NotDetected); Salmonella spp Not Reported Not Detected (NotDetected); Staph lugdunensis Not Reported Not Detected (NotDetected); Staph spp. Not Reported Not Detected (NotDetected); Staphaureus Not Reported Not Detected (NotDetected); Staphepi Not Reported Not Detected (NotDetected); Stenmaltophilia Not Reported Not Detected (NotDetected); Strep agal(GrpB) Not Reported Not Detected (NotDetected); Strep pneum Not Reported Not Detected (NotDetected); Strep pyog (GrpA) Not Reported Not Detected (NotDetected); Strep spp Not Reported DETECTED (NotDetected)
[2024-11-21 05:16] LABS: Streptococcus spp DETECTED (NotDetected)
[2024-11-21 06:22] LABS: Hematocrit (blood only) 32.4 % (37.0-47.0); Hemoglobin 10.7 g/dl (12.0-16.0); Mean Corpuscular Hemoglobin 29.3 pg (25.0-34.0); Mean Corpuscular Volume 88.8 fL (80.0-100.0); Mean Platelet Volume 12.4 fL (9.4-12.4); Platelet Count 176 K/uL (130-400); RDW Coefficient of Variation 14.4 % (11.5-14.5); RDW Standard Deviation 46.5 fL (36.4-46.3); Red Blood Count 3.65 M/uL (4.20-5.40); White Blood Count 10.38 K/ul (4.8-10.8)
[2024-11-21 06:38] LABS: BUN Creatinine Ratio 6.8 (10-20); Calcium 7.6 mg/dl (8.6-10.3); Creatinine Clr Calc Pharmacy 78.6 ml/min; Potassium 3.8 mmol/L (3.5-5.1)
[2024-11-21 06:47] LABS: INR 2.9 (0.9-1.1); Prothrombin Time 28.5 Seconds (9.0-12.0)
--- NOTE | 2024-11-21 07:53 | Hospitalist Progress Note ---
Date of Service November 21, 2024 Assessment & Plan (1) Atrial fibrillation with rapid ventricular response: (2) Heart failure with mid-range ejection fraction: (3) Diarrhea: Plan 64 yo F with PMHx of AFib on coumadin, HFmEF, HTN brought to [facility] on 11/19/24 from PCP office after being found to be in AFib with RVR. Per daughter's report, pt is noncompliant with her meds and takes her metoprolol from time to time. Recently, pt has been weak after having episodes of diarrhea and confusion. #Atrial fibrillation with rapid ventricular response - possibly precipitated by noncompliance as well as diarrheal illness - on cardizem drip - cont metoprolol 200mg po daily, digoxin 0.125mg po daily - warfarin d/c-ed, placed on hep gtt due to mitral valve thrombus vs vegetation - echo : mitral valve vegetation vs thrombus, RVSP 50-60 mmHg, mild hypokinesis of LV, EF: 40-45% - cardiology recs appreciated #Bacterial endocarditis #Mitral valve vegetation #GPC bacteremia - ECHO showing moderate size vegetation or mass on the mitral valve on the ventricular side (not present on ECHO from 12/2023) - discussed with cardiology, cont heparin gtt (warfarin d/c-ed) - cont vanc / ceftriaxone - THUY planned for Friday, NPO p MN placed for Friday. - ESR / CRP elevated - BCx 10/22 postive GPC in chains, rpt BCx ordered - ID consulted - hold off on PICC until BCx negative #HFrEF: - last ECHO 12/2023, EF 50-55%, currently EF is 40-45% - lasix d/c-ed 2nd to hypotension #Elevated troponin - suspect Type II [place] - trend at this time #Hyponatremia - improving with hydration #Diarrhea - resolved - likely 2nd to viral enteritis - s/p IVF #HTN - cont metoprolol Admission and Anticipated Discharge Date Admission Date: November 19, 2024 Subjective No acute events overnight This morning, pt is confused Review of Systems Review of Systems: comprehensive ROS neg Physical Exam Physical Exam: Gen: NAD, lying in bed comfortable HEENT: NC/AT, MMM Lungs: CTAB CVS: [id number], irregular Abd: soft, nl bowel sounds, NT : no underwood Ext: no edema Neuro: fatigued, confused Psych: calm Results & Data Results & Data Vital Signs (Past 12 Hours) Vital Signs Temp Pulse Pulse Resp BP BP Pulse Ox 11/21/24 07:33 37.4 C 105 H 19 133/77 95 11/21/24 03:44 37.1 C 71 17 133/82 97 11/21/24 00:04 36.8 C 88 17 120/75 96 11/20/24 21:39 114 H 11/20/24 20:12 37.9 C H 85 18 113/78 96 O2 Del Method 11/21/24 07:33 Room Air 11/21/24 03:44 Room Air 11/21/24 00:04 Room Air 11/20/24 21:39 11/20/24 20:12 Room Air PG Care Time/CCT Total # of Minutes Spent Total Time Spent with Patient: Total time spent is greater than 50% in coordination of care (as documented) at patient's floor/unit and/or counseling patient: Coding Level of Care Code 41535 SUB INP/OBS CARE 3/50MIN Diagnoses Atrial fibrillation with rapid ventricular response I48.91 Heart failure with mid-range ejection fraction I50.22 Diarrhea R19.7
--- NOTE | 2024-11-21 10:43 | Cardiology Progress Note ---
Date of Service November 21, 2024 Assessment & Plan (1) History of mitral valve replacement with mechanical valve: Plan: With abnormal echo density consistent with either endocarditis versus thrombus for THUY in a.m. to reassess. Continue IV antibiotics for now. Her anticoagulation with Coumadin was held yesterday and she was started on IV heparin. (2) Atrial fibrillation, permanent: (3) History of stroke: (4) Fever: (5) Leukocytosis: (6) Noncompliance with medications: Admission and Anticipated Discharge Date Admission Date: November 19, 2024 Srinath Coronado is a 63-year-old speaking woman who is known to Dr. Kayden Birch. She has been here in the [facility] for approximately 2 to 3 years according to her daughter. She has a longstanding history of rheumatic mitral valve disease which initially presented as stroke back in 1999 and was followed by a mechanical mitral valve replacement at [facility] in [place]. She has chronic atrial fibrillation as well and is on anticoagulation with Coumadin. Her daughter was available in the room and served as family practice md for the patient. According to the daughter about 2 weeks ago she developed a period of confusion which seem to be worse than her prior baseline but the daughter also notes that the mother had fevers on that particular day associated with chills. Apparently the symptoms resolved on their own up until her coming into the hospital with A-fib with rapid ventricular response. Apparently the patient has difficulty taking her metoprolol 200 mg tablet and this is subsequently been changed to 4-50 mg tablets but she does not want to take somebody pills and there is an issue of noncompliance. Reviewing her protimes over the last several months her INRs have generally been above 2 however not in the recommended 2.5-3.5 range entirely. Her echo was done this morning and it was reviewed and compared to her prior echo from 2022 which was done at the [facility] cardiology office. There appears to be a new mass on the ventricular surface of the mitral valve. MR is not appreciated but she does have significant severe tricuspid regurgitation. The right heart is dilated as well. This has the appearance of a possible clot but cannot rule out endocarditis. This was discussed with the daughter and I am recommending that she undergo a transesophageal echo on Friday to further assess this valve. In the meantime because her INR was initially not therapeutic when she came in I am recommending that we start her on IV heparin until a better understanding of the problem is Unfortunately her blood cultures since yesterday came back positive 2 out of 2 bottles of strep. She has been started on vancomycin and ceftriaxone. She has been much more confused and somewhat agitated overnight and this morning. I extensively reviewed the results with her daughter. She is on for the THUY tomorrow with Dr. Birch. Review of Systems Review of Systems: All systems reviewed & are unremarkable except as noted in HPI & below Physical Exam Physical Exam: resting in bed appears comfortable somewhat restless Constitutional: Her left elbow she has about a centimeter area of an eschar which appears to be somewhat deep. There were no evidence of emboli on her fingertips toes or nails Cardiovascular: Valve sounds crisp Systolic murmur along the right sternal border is noted I think this is tricuspid regurgitation Results & Data Vital Signs (Past 12 Hours) Vital Signs Temp Pulse Pulse Resp BP Pulse Ox O2 Del Method 11/21/24 07:33 37.4 C 105 H 19 133/77 95 Room Air 11/21/24 07:00 97 H 11/21/24 03:44 37.1 C 71 17 133/82 97 Room Air 11/21/24 00:04 36.8 C 88 17 120/75 96 Room Air Laboratory Results Abnormal lab results 11/20/24 11/20/24 11/21/24 Range/Units 13:24 19:16 03:20 RBC (4.20-5.40) M/uL Hgb (12.0-16.0) g/dl Hct (37.0-47.0) % RDW Std Deviation (36.4-46.3) fL ESR 38 H (0-30) mm/hr PT (9.0-12.0) Seconds INR (0.9-1.1) Heparin Anti-Xa, Unfract 0.18 L 0.29 L (0.3-0.7) IU/ml Anion Gap (3-11) BUN (6-23) mg/dl Creatinine (0.6-1.2) mg/dl BUN/Creatinine Ratio (10-20) Glucose (70-99(Fasting)) mg/dl Calcium (8.6-10.3) mg/dl C-Reactive Protein 7.41 H (0-0.5) mg/dl Streptococcus sp PCR DETECTED A (NotDetected) 11/21/24 Range/Units 05:38 RBC 3.65 L (4.20-5.40) M/uL Hgb 10.7 L (12.0-16.0) g/dl Hct 32.4 L (37.0-47.0) % RDW Std Deviation 46.5 H (36.4-46.3) fL ESR (0-30) mm/hr PT 28.5 H (9.0-12.0) Seconds INR 2.9 H (0.9-1.1) Heparin Anti-Xa, Unfract (0.3-0.7) IU/ml Anion Gap 2 L (3-11) BUN 4 L (6-23) mg/dl Creatinine 0.59 L (0.6-1.2) mg/dl BUN/Creatinine Ratio 6.8 L (10-20) Glucose 117 H (70-99(Fasting)) mg/dl Calcium 7.6 L (8.6-10.3) mg/dl C-Reactive Protein (0-0.5) mg/dl Streptococcus sp PCR (NotDetected) Diagnostic Findings Blood cultures x 2 bottles positive for strep
[2024-11-21 11:32] LABS: ANTI-Xa, UFH(UnfractionatedHep 0.28 IU/ml (0.3-0.7)
[2024-11-21] MEDS: ACETAMINOPHEN 325 MG TAB PO PRN (15:50)
[2024-11-21] MEDS ORDERED: WARFARIN SOD 4 MG TAB PO SCH (16:00)
[2024-11-21 18:41] LABS: ANTI-Xa, UFH(UnfractionatedHep 0.28 IU/ml (0.3-0.7)
[2024-11-22 01:35] LABS: ANTI-Xa, UFH(UnfractionatedHep 0.36 IU/ml (0.3-0.7)
[2024-11-22 06:24] LABS: Hemoglobin 10.5 g/dl (12.0-16.0); Mean Corpuscular Hemoglobin 28.5 pg (25.0-34.0); Mean Corpuscular Hgb Conc 32.8 g/dL (32.0-36.0); Mean Corpuscular Volume 86.7 fL (80.0-100.0); Mean Platelet Volume 12.3 fL (9.4-12.4); Platelet Count 187 K/uL (130-400); RDW Coefficient of Variation 14.5 % (11.5-14.5); RDW Standard Deviation 46.3 fL (36.4-46.3); Red Blood Count 3.69 M/uL (4.20-5.40)
[2024-11-22 06:46] LABS: BUN Creatinine Ratio 5.8 (10-20); Calcium 7.5 mg/dl (8.6-10.3); Creatinine Clr Calc Pharmacy 89.2 ml/min; Magnesium 1.4 mg/dl (1.7-2.4); Potassium 3.6 mmol/L (3.5-5.1)
[2024-11-22 06:47] LABS: Prothrombin Time 29.5 Seconds (9.0-12.0)
--- NOTE | 2024-11-22 07:11 | Anesthesiology Consultation ---
Date of Service November 22, 2024 Assessment & Plan Chart Review Chart Review: Acceptable Risk for Surgery and Patient NOT seen in Pre Admission Testing Consults Requested none History Surgery Operation Date: 11/22/24 07:30 Proposed Procedures p Transesophageal Echo - Alexsander Birch MD Height/Weight Height: 5 ft 3 in Weight: 62.7 kg Allergies Allergy/AdvReac Type Severity Reaction Status Date / Time No Known Allergies Allergy Verified 11/19/24 15:42 Medications Home Medications Medication Instructions Recorded Confirmed Last Taken hydrocortisone 2.5 % topical cream 1 applic topical BID PRN skin 10/01/21 11/19/24 Unknown irritation #28 grams acetaminophen 325 mg tablet 650 mg PO Q4H PRN headache 11/21/22 11/19/24 Unknown compress.stocking,knee,reg,med #2 ea 04/28/23 11/19/24 Unknown digoxin 125 mcg (0.125 mg) tablet 125 mcg PO DAILY #90 tabs 11/06/23 11/19/24 Unknown metoprolol succinate 50 mg 200 mg (4 x 50 mg) PO DAILY #360 11/24/23 11/19/24 Unknown tablet,extended release 24 hr tabs furosemide 20 mg tablet 20 mg PO DAILY PRN short of breath 11/26/23 11/19/24 Unknown #90 tabs amoxicillin 500 mg capsule 2,000 mg (4 x 500 mg) PO .COMPLEX 01/19/24 11/19/24 Unknown #4 caps warfarin 4 mg tablet See Rx Instructions PO DAILY 10/29/24 11/19/24 Unknown Active Medications Generic Name Dose Route Start Last Admin Trade Name Freq PRN Reason Stop Dose Admin Acetaminophen 650 mg 11/19/24 15:38 11/21/24 15:50 Acetaminophen 325 Mg Tab PO 12/19/24 15:37 650 mg Q4H PRN Administration headache Digoxin 0.125 mg 11/20/24 16:00 11/21/24 15:50 Digoxin 0.125 Mg Tab PO 12/20/24 15:59 0.125 mg DAILY@1600 TERESA Administration Sodium Chloride 1,000 mls @ 125 mls/hr 11/19/24 14:00 11/22/24 01:55 Nss IV 11/22/24 13:59 125 mls/hr .Q8H TERESA Administration Diltiazem HCl 125 mg/ Dextrose 125 mls @ 5 mls/hr 11/19/24 14:15 11/21/24 15:25 IV 12/19/24 14:14 Infused .Q24H TERESA Titration Protocol 5 MG/HR Heparin Sodium/Dextrose 25,000 units in 500 mls @ 25 mls/hr 11/20/24 13:15 11/22/24 06:53 Heparin 72280 Unit/500 Ml D5w IV 12/20/24 13:14 1,250 units/hr .Q20H TERESA 25 mls/hr Administration Protocol 1,250 UNITS/HR Ceftriaxone Sodium 2,000 mg in 50 mls @ 100 mls/hr 11/20/24 15:00 11/22/24 03:52 Rocephin IV 01/01/25 14:59 Infused Q12H TERESA Infusion Vancomycin HCl 1,000 mg in 270 mls @ 200 mls/hr 11/21/24 02:00 11/22/24 03:20 Vancomycin Hcl IV 01/02/25 01:59 Infused Q12H TERESA Infusion Metoprolol Succinate 200 mg 11/20/24 09:00 11/21/24 10:45 Metoprolol Succ 50mg Ext Rel Tab PO 12/20/24 08:59 200 mg DAILY TERESA Administration Past Medical History Medical History Rheumatic mitral valve disease Past Family History Family History Father Colorectal cancer Denies family history of Ovarian cancer Prostate cancer Myocardial infarction Breast cancer Past Surgical History Surgical History S/P wisdom tooth extraction Social History Smoking Status: Never smoker Do You Dip or Chew Tobacco: No Hx Alcohol Use: Yes Alcohol type: wine alcohol intake frequency: holidays/special occasions only Hx Substance Use: No substance use type: does not use Physical Exam Vital Signs Last Vital Signs Temp 37.6 C H 11/22/24 03:47 Pulse 82 11/22/24 02:48 Resp 18 11/22/24 02:48 BP 127/85 11/22/24 02:48 Pulse Ox 93 11/22/24 02:48 O2 Del Method Room Air 11/22/24 02:48 Testing Laboratory Results 11/22/24 05:57 11/22/24 05:57 PT 29.5 Seconds (9.0-12.0) H 11/22/24 05:57 INR 3.0 (0.9-1.1) H 11/22/24 05:57 APTT 35 Seconds (21-31) H 11/19/24 13:29 Urine Color Yellow 11/19/24 16:00 Urine Appearance Clear (Clear) 11/19/24 16:00 Urine pH 6.5 (4.5-7.5) 11/19/24 16:00 Ur Specific Beeler 1.007 (1.000-1.030) 11/19/24 16:00 Urine Protein Negative (Negative) 11/19/24 16:00 Urine Glucose (UA) Negative (Negative) 11/19/24 16:00 Urine Ketones Negative (Negative) 11/19/24 16:00 Urine Nitrite Negative (Negative) 11/19/24 16:00 Ur Leukocyte Esterase Negative (Negative) 11/19/24 16:00 11/20/24 13:24 Aerobic Blood Culture - Preliminary Blood Gram positive cocci in chains Anaerobic Blood Culture - Preliminary Gram positive cocci in chains 11/20/24 13:24 Aerobic Blood Culture - Preliminary Blood Gram positive cocci in chains Anaerobic Blood Culture - Preliminary Gram positive cocci in chains
--- NOTE | 2024-11-22 08:11 | Post Operative Brief Note ---
Cardiology Brief Post Op Date of Surgery November 22, 2024 Pre & Post Diagnosis Operation Date: 11/22/24 07:30 <No data on this case meets the specified criteria> Procedure THUY Platen Press Feeder Alexsander Birch MD Bleach Packer Tereso Estimated Blood Loss 0 Findings See Below Mechanical mitral valve with vegetations. Full report to follow. Complications none
[2024-11-22] MEDS ORDERED: LIDOCAINE 2% 2 ML VIAL/AMP(20MG/ML) INFIL ONE (08:12)
[2024-11-22] MEDS ORDERED: PROPOFOL IV EMULSION 10 MG/ML 20 ML VIAL IV ONE (08:12)
[2024-11-22] MEDS ORDERED: PHENYLEPHRINE 100MCG/ML 5ML SYR ONE (08:12)
--- NOTE | 2024-11-22 09:24 | Cardiology Progress Note ---
Date of Service November 22, 2024 Assessment & Plan (1) Prosthetic valve endocarditis: (2) Endocarditis: (3) Atrial fibrillation, permanent: (4) Cardiomyopathy: (5) Chronic anticoagulation: (6) History of mitral valve replacement with mechanical valve: (7) Tricuspid regurgitation: (8) Heart failure with mid-range ejection fraction: Plan ASSESSMENT/PLAN: 1. Mitral prosthetic valve endocarditis: Positive blood cultures and vegetations noted on mechanical mitral valve. On THUY, no obvious abscess or valve dehiscence. No urgent indication for surgical intervention at this time. Continue with IV antibiotics. Infectious disease consultation is pending. Source of bacteremia unclear. 2. Cardiomyopathy: Mildly reduced LV systolic function. May be related to tachycardia as she has been noncompliant with beta-ricky therapy in the outpatient setting. Chronic finding. Continue metoprolol succinate. 3. Chronic heart failure with midrange EF: She appears euvolemic. Continue metoprolol succinate. Will consider ARNI. No changes made today in this regard given more acute issues. 4. Atrial fibrillation: Permanent. She has been noncompliant in the outpatient setting with metoprolol succinate. She apparently had difficulty swallowing the medication and the dose was reduced but with increased pills to maintain constant dose. Her daughter states that she did not wish to continue with so many pills. Continue metoprolol succinate here as she seems to be tolerating it well. Can continue digoxin. Digoxin level ordered. Continue anticoagulation for stroke risk reduction. Monitor CBC periodically. 5. 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 Goal INR 2.5-3.5. Can resume warfarin at her previous dosing regimen and discontinue heparin to avoid issues with overlapping anticoagulation therapy in the future. Communicated with primary hospitalist. 6. Confusion: Noted by patient's daughter, Latisha, on 11/08/2024. Continues to be confused. As per primary hospitalist service. 7. Tricuspid regurgitation: Can continue to monitor in the outpatient setting. 8. Disposition: Cardiology will continue to follow. Patient care communicated with primary hospitalist service, Dr. Hanna. Patient care also discussed with patient's daughter, Latisha, via telephone. Admission and Anticipated Discharge Date Admission Date: November 19, 2024 Subjective Patient seen this morning before and after transesophageal echo. She seems confused. Conversation was held with raiser helper via iPad at the bedside. She did not always finish her thoughts per the pacu nurse but repeated her self several times. She denies chest pain or shortness of breath. She denied any pain. Regards to the transesophageal echo, consent was obtained via her daughter, Latisha, over the weekend by Dr. An. I confirmed with her daughter via telephone before the procedure the consent that was obtained by Dr. An. Risks and benefits were again reviewed with her daughter via telephone. Due to patient's confusion, she was unable to give consent herself. Her daughter confirmed that she was noncompliant with metoprolol. Apparently with metoprolol succinate 200 mg, she had difficulty swallowing the pill. Smaller doses more than prescribed in the outpatient setting but she did not prefer to take multiple pills (multiple 50 mg tablets to maintain her prior dose). Her daughter states she was compliant with warfarin however. Physical Exam Physical Exam: Gen.: No acute distress. Alert. HEENT: Anicteric sclera. Neck: Prominent V waves. Cardiac: Irregularly irregular. Normal heart rate. Normal S1-S2. No murmurs, rubs, or gallops. Pulmonary: Clear to auscultation bilaterally without wheezes, rales, or rhonchi. Abdomen: Soft, nontender, nondistended, with normoactive bowel sounds. No bruits noted. Extremities: 2+ radial pulses bilaterally. 2+ posterior tibialis pulses bilaterally. No edema or cyanosis. No Janeway lesions, Osler's nodes, or splinter hemorrhages noted. Results & Data Vital Signs (Past 12 Hours) Vital Signs Temp Pulse Pulse Resp BP Pulse Ox O2 Del Method 11/22/24 08:30 91 H 14 113/70 94 Room Air 11/22/24 08:15 85 14 101/69 94 Room Air 11/22/24 07:20 75 14 104/60 99 Room Air 11/22/24 03:47 37.6 C H 11/22/24 02:48 38.3 C H 82 18 127/85 93 Room Air 11/21/24 23:08 37.0 C 75 18 122/79 95 Room Air 11/21/24 21:59 86 Intake & Output 11/20/24 11/21/24 11/22/24 11/23/24 06:59 06:59 06:59 06:59 Intake Total 4103.167 / 4103.167 4485.550 / 4485.550 3751.45 / 3751.45 Output Total 975 / 975 2401 / 2401 2701 / 2701 Balance 3128.167 / 3128.167 2084.550 / 2084.550 1050.45 / 1050.45 Weight 138 lb 3.677 oz 138 lb 3.677 oz Laboratory Results Laboratory Results - last 24 hr 11/21/24 11/21/24 11/22/24 10:32 17:42 00:50 WBC RBC Hgb Hct MCV MCH MCHC RDW Std Deviation RDW Coeff of Jason Plt Count MPV PT INR Heparin Anti-Xa, Unfract 0.28 L 0.28 L 0.36 Sodium Potassium Chloride Carbon Dioxide Anion Gap BUN Creatinine Est Cr Clr Drug Dosing eGFR BUN/Creatinine Ratio Glucose Calcium Magnesium 11/22/24 05:57 WBC 9.90 RBC 3.69 L Hgb 10.5 L Hct 32.0 L MCV 86.7 MCH 28.5 MCHC 32.8 RDW Std Deviation 46.3 RDW Coeff of Jason 14.5 Plt Count 187 MPV 12.3 PT 29.5 H INR 3.0 H Heparin Anti-Xa, Unfract Sodium 134 L Potassium 3.6 Chloride 103 Carbon Dioxide 25 Anion Gap 6 BUN 3 L Creatinine 0.52 L Est Cr Clr Drug Dosing 89.2 eGFR 103.04 BUN/Creatinine Ratio 5.8 L Glucose 116 H Calcium 7.5 L Magnesium 1.4 L Diagnostic Findings Labs reviewed and notable for anemia, stable renal function, normal potassium, hypomagnesemia. Mildly elevated high-sensitivity troponin peaking at 167. INR 3. Blood cultures from 11/20/2024 are positive x 2 with Streptococcus gallolyticus. ECG personally reviewed 12-12: A-fib RVR 158 bpm. PVC versus aberrantly conducted complexes. Nonspecific T wave abnormality. Echo 11/20/2024 report: Mechanical mitral valve with vegetation/mass involving the mitral valve prosthesis. Significant TR. Elevated RVSP. LVEF 40-45%. Global hypokinesis. Transesophageal echo 11/22/2024: Mechanical mitral valve with vegetations. Formal review to follow. Moderate to severe tricuspid regurgitation on preliminary review. Medications Administered Current Inpatient Medications Acetaminophen (Acetaminophen 325 Mg Tab) 650 mg PO Q4H PRN PRN Reason: headache Stop: 12/19/24 15:37 Last Admin: 11/21/24 15:50 Dose: 650 mg Digoxin (Digoxin 0.125 Mg Tab) 0.125 mg PO DAILY@1600 [facility] Stop: 12/20/24 15:59 Last Admin: 11/21/24 15:50 Dose: 0.125 mg Sodium Chloride (Nss) 1,000 mls @ 125 mls/hr IV .Q8H [facility] Stop: 11/22/24 13:59 Last Admin: 11/22/24 01:55 Dose: 125 mls/hr Diltiazem HCl 125 mg/ Dextrose 125 mls @ 5 mls/hr IV .Q24H [facility]; Protocol Stop: 12/19/24 14:14 Last Titration: 11/21/24 15:25 Dose: Infused Heparin Sodium/Dextrose (Heparin 33100 Unit/500 Ml D5w) 25,000 units in 500 mls @ 25 mls/hr IV .Q20H [facility]; Protocol Stop: 12/20/24 13:14 Last Admin: 11/22/24 06:53 Dose: 1,250 units/hr, 25 mls/hr Ceftriaxone Sodium (Rocephin) 2,000 mg in 50 mls @ 100 mls/hr IV Q12H [facility] Stop: 01/01/25 14:59 Last Infusion: 11/22/24 03:52 Dose: Infused Vancomycin HCl (Vancomycin Hcl) 1,000 mg in 270 mls @ 200 mls/hr IV Q12H [facility] Stop: 01/02/25 01:59 Last Infusion: 11/22/24 03:20 Dose: Infused Metoprolol Succinate (Metoprolol Succ 50mg Ext Rel Tab) 200 mg PO DAILY [facility] Stop: 12/20/24 08:59 Last Admin: 11/21/24 10:45 Dose: 200 mg Miscellaneous Information (Vancomycin Consult Active) 1 each N/A UD PRN PRN Reason: Consult Stop: 12/20/24 14:10 Ondansetron HCl (Ondansetron Inj 2 Mg/Ml 2 Ml Vial) 4 mg IV Q6H PRN PRN Reason: Nausea Stop: 12/19/24 15:39 PG Care Time/CCT Total # of Minutes Spent Total Time Spent with Patient: Total time spent is greater than 50% in coordination of care (as documented) at patient's floor/unit and/or counseling patient: Coding Level of Care Code 16069 SUB INP/OBS CARE MIN Diagnoses Prosthetic valve endocarditis T82.6XXA; I33.0 Endocarditis I38 Atrial fibrillation, permanent I48.21 Cardiomyopathy I42.9 Chronic anticoagulation Z79.01 History of mitral valve replacement with mechanical valve Z95.2 Tricuspid regurgitation I07.1 Heart failure with mid-range ejection fraction I50.22
[2024-11-22] MEDS: BENZOCAINE/TETRACAIN/BUTAM 50 APPLN/5 GM CAN EXT ONE (09:37)
--- NOTE | 2024-11-22 09:41 | Anesthesiology Progress Note ---
Date of Service November 22, 2024 Anesthesia Post Procedure Vital Signs Vital Signs: Temp Pulse Pulse Resp BP Pulse Ox O2 Del Method 11/22/24 08:30 91 H 14 113/70 94 Room Air 11/22/24 08:15 85 14 101/69 94 Room Air 11/22/24 07:20 75 14 104/60 99 Room Air 11/22/24 03:47 37.6 C H 11/22/24 02:48 38.3 C H 82 18 127/85 93 Room Air 11/21/24 23:08 37.0 C 75 18 122/79 95 Room Air 11/21/24 21:59 86 11/21/24 20:00 Room Air 11/21/24 19:44 37.0 C 90 22 123/83 95 Room Air 11/21/24 15:36 38.8 C H 93 H 17 133/77 94 Room Air 11/21/24 11:47 37.8 C H 91 H 18 123/82 97 Room Air Transfer of Care Handoff Completed per policy Notes Mental Status: alert / awake / arousable Patient Amnestic to Procedure: Yes Nausea / Vomiting: adequately controlled Pain: adequately controlled Airway Patency, RR, SpO2: stable & adequate BP & HR: stable & adequate Hydration State: stable & adequate Anesthetic Complications: no major complications apparent and Pt Satisfied with anesthetic care
--- NOTE | 2024-11-22 09:45 | Infectious Disease Consult ---
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 On presentation, pt was afebrile. Labs showed WBC 15.45. CXR without pulmonary edema or consolidation. CT head with no acute intracranial findings. A TTE on 11/20 showed a new mass on the mitral valve--clot vs endocarditis. Blood cultures were obtained on 11/20 and grew Strep gallolyticus in 4/ bottles. THUY on 11/21 showed a mechanical mitral valve vegetation, no obvious abscess or valve dehiscence. Per cardiology, no urgent indication for surgical intervention at this time. Recommendations: - Discontinued vancomycin - Continue ceftriaxone 2 g IV q24h - Follow-up Strep gallolyticus sensitivities - Follow-up blood culture clearance - Anticipate 6 week course of ceftriaxone from blood culture clearance - Strep gallolyticus bacteremia is associated with colon cancer--recommend a colonoscopy as outpatient Will continue to follow Consultation Information Consultation was provided via telemedicine using two-way real-time interactive telecommunication between the patient and the telemedicine provider. For the duration of the visit, the provider was performing the assessment from a different facility than the patient. This includesuse of bluetooth stethoscope forauscultationperformed by the telepresenter that the telemedicine provider can hear if described in the physical exam. [facility] contact information: Please call [facility] [phone]. 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 Pt had been ill for 2 weeks with shivers, body aches. Was only wanting to sleep. Had some confusion and diarrhea. She had not been taking her medications because she was not feeling well. On presentation, pt was afebrile. Labs showed WBC 15.45. RVP negative. UA negative. CXR without pulmonary edema or consolidation. CT head with no acute intracranial findings. A TTE on 11/20 showed a new mass on the mitral valve--clot vs endocarditis. Blood cultures were obtained on 11/20 and grew Strep gallolyticus in 4/ bottles. THUY on 11/21 showed a mechanical mitral valve vegetation, no obvious abscess or valve dehiscence. Per cardiology, no urgent indication for rivero rgical intervention at this time. Allergies Allergy/AdvReac Type Severity Reaction Status Date / Time No Known Allergies Allergy Verified 11/19/24 15:42 Home Medications Medication Instructions Recorded Confirmed Type hydrocortisone 2.5 % topical cream 1 applic topical BID PRN skin 10/01/21 11/19/24 Rx irritation #28 grams acetaminophen 325 mg tablet 650 mg PO Q4H PRN headache 11/21/22 11/19/24 History compress.stocking,knee,reg,med #2 ea 04/28/23 11/19/24 Rx digoxin 125 mcg (0.125 mg) tablet 125 mcg PO DAILY #90 tabs 11/06/23 11/19/24 Rx metoprolol succinate 50 mg 200 mg (4 x 50 mg) PO DAILY #360 11/24/23 11/19/24 Rx tablet,extended release 24 hr tabs furosemide 20 mg tablet 20 mg PO DAILY PRN short of breath 11/26/23 11/19/24 Rx #90 tabs amoxicillin 500 mg capsule 2,000 mg (4 x 500 mg) PO .COMPLEX 01/19/24 11/19/24 Rx #4 caps warfarin 4 mg tablet See Rx Instructions PO DAILY 10/29/24 11/19/24 History Patient History Medical History Rheumatic mitral valve disease Surgical History S/P wisdom tooth extraction Family History Father Colorectal cancer Denies family history of Ovarian cancer Prostate cancer Myocardial infarction Breast cancer Social History Smoking Status: Never smoker Second Hand Exposure: No; Do You Dip or Chew Tobacco: No; Hx Alcohol Use: Yes Alcohol type: wine Alcohol Intake Frequency: Monthly or Less Hx Substance Use: No Preferred Language: Venezuelan 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 Communication Tools: Facial Expression, Physical Gestures and Other Visual Impairment: No Limitations Hearing Ability: Normal Automatic Nailing Machine Feeder Required: Yes Beliefs That Will Affect Care: None marital status: Single Current Living Situation: Other Current Living Situation Comment: lives with daughter current occupational status: unemployed and retired Feels Safe at Home: Yes Childhood Exposure to Second-Hand Smoke: No Diet: regular Dental Care, Regularly: No Physical Activity Frequency: Does not Exercise Seatbelt Use: always Sunscreen Use: Yes Assistive Devices: None and Glasses Review of System Unable to perform due to patient confusion Physical Exam Physical Exam: GEN: laying in bed in NAD. HEENT: Normocephalic, atraumatic. Good dentition RESP: breathing comfortably on room air ABD: Soft, non-distended. Non-tender to palpation. EXT: No LE edema. Warm, well-perfused. SKIN: No lesions or rashes on exposed skin. Results & Data Vital Signs (Past 12 Hours) Vital Signs Temp Pulse Pulse Resp BP Pulse Ox O2 Del Method 11/22/24 08:30 91 H 14 113/70 94 Room Air 11/22/24 08:15 85 14 101/69 94 Room Air 11/22/24 07:20 75 14 104/60 99 Room Air 11/22/24 03:47 37.6 C H 11/22/24 02:48 38.3 C H 82 18 127/85 93 Room Air 11/21/24 23:08 37.0 C 75 18 122/79 95 Room Air 11/21/24 21:59 86 Laboratory Results Short CBC 11/22/24 Range/Units 05:57 WBC 9.90 (4.8-10.8) K/ul Hgb 10.5 L (12.0-16.0) g/dl Hct 32.0 L (37.0-47.0) % Plt Count 187 (130-400) K/uL BMP 11/22/24 05:57 Sodium 134 L Potassium 3.6 Chloride 103 Carbon Dioxide 25 BUN 3 L Creatinine 0.52 L Glucose 116 H Calcium 7.5 L Diagnostic Findings Chest X-Ray 11/19/24 12:55 XR chest 1V portable CLINICAL HISTORY: Chest pain, nonspecific COMPARISON STUDY: Chest radiograph December 02, 2023. FINDINGS: Median sternotomy wires and prosthetic cardiac valve are noted. The heart is moderately enlarged. There is no evidence for pulmonary edema. Linear bibasilar densities favor atelectasis. There is no consolidation to suggest pneumonia. There is no pneumothorax or pleural effusion. IMPRESSION: 1. Cardiomegaly without evidence for pulmonary edema. 2. Linear bibasilar densities suggestive of atelectasis. ACT 112: Negative or not required by law. Electronically signed by: Adis Beltre M.D. 11/19/2024 1:[address] 11/19/24 13:57 CT SCAN OF THE BRAIN WITHOUT IV CONTRAST CLINICAL HISTORY: Weakness. Confusion. COMPARISON STUDY: TECHNIQUE: Unenhanced axial CT scan of the brain was performed from the vertex to the skull base. A dose lowering technique was utilized adhering to the principles of ALARA. CT DOSE: 547.75 mGy.cm FINDINGS: Brain parenchyma: No acute intracranial hemorrhage, midline shift or mass effect is present. Wilson-white matter differentiation is preserved. There are no extra- axial fluid collections. There are no findings to suggest acute dural sinus thrombosis or acute territorial infarct. A 1.6 cm focus of encephalomalacia within the medial right cerebellar hemisphere favors an old infarct. Small hypodensities within the bilateral basal ganglia favor prominent perivascular spaces although old infarcts could appear similar. Ventricles, sulci, cisterns: There is no hydrocephalus. The basal cisterns are patent. Calvarium: Unremarkable. Sinuses and mastoids: The visualized paranasal sinuses are clear. The mastoid air cells are well pneumatized. Orbits: The bony orbits are grossly intact. IMPRESSION: 1. No acute intracranial findings. 2. 1.6 cm focus of encephalomalacia within the right cerebellar hemisphere which favors an old infarct. ACT 112: Negative or not required by law. Electronically signed by: Adis Beltre M.D. 11/19/2024 3:02 PM Medications Administered Current Inpatient Medications Acetaminophen (Acetaminophen 325 Mg Tab) 650 mg PO Q4H PRN PRN Reason: headache Stop: 12/19/24 15:37 Last Admin: 11/21/24 15:50 Dose: 650 mg Digoxin (Digoxin 0.125 Mg Tab) 0.125 mg PO DAILY@1600 [facility] Stop: 12/20/24 15:59 Last Admin: 11/21/24 15:50 Dose: 0.125 mg Sodium Chloride (Nss) 1,000 mls @ 125 mls/hr IV .Q8H [facility] Stop: 11/22/24 13:59 Last Admin: 11/22/24 09:37 Dose: 125 mls/hr Heparin Sodium/Dextrose (Heparin 02295 Unit/500 Ml D5w) 25,000 units in 500 mls @ 25 mls/hr IV .Q20H [facility]; Protocol Stop: 12/20/24 13:14 Last Admin: 11/22/24 06:53 Dose: 1,250 units/hr, 25 mls/hr Ceftriaxone Sodium (Rocephin) 2,000 mg in 50 mls @ 100 mls/hr IV Q12H [facility] Stop: 01/01/25 14:59 Last Infusion: 11/22/24 03:52 Dose: Infused Vancomycin HCl (Vancomycin Hcl) 1,000 mg in 270 mls @ 200 mls/hr IV Q12H [facility] Stop: 01/02/25 01:59 Last Infusion: 11/22/24 03:20 Dose: Infused Metoprolol Succinate (Metoprolol Succ 50mg Ext Rel Tab) 200 mg PO DAILY [facility] Stop: 12/20/24 08:59 Last Admin: 11/21/24 10:45 Dose: 200 mg Miscellaneous Information (Vancomycin Consult Active) 1 each N/A UD PRN PRN Reason: Consult Stop: 12/20/24 14:10 Ondansetron HCl (Ondansetron Inj 2 Mg/Ml 2 Ml Vial) 4 mg IV Q6H PRN PRN Reason: Nausea Stop: 12/19/24 15:39
[2024-11-22] MEDS: VANCOMYCIN LEVEL ONE (12:12)
--- NOTE | 2024-11-22 13:27 | Pharmacy Report ---
Pharmacy PK ABX Note - Date of Service November 22, 2024 - Assessment and Plan Assessment 11/22: * Day #3 of vancomycin and ceftriaxone for endocarditis. * ID consulted, awaiting evaluation. * Remains febrile, 24 Tmax of 38.8 C. Leukocytosis improving, 9.9k today. SCr trending down as well, 0.52 mg/dL today. * Strep gallalyticus growing in blood cultures, sensitivities pending. Repeat blood cultures pending. 11/20: 64 year old F receiving Vancomycin and Ceftriaxone for treatment of endoca rditis. * Day #1 of antimicrobial therapy. * TTE showed mitral valve vegetation. Planned THUY for Friday. * Low grade fever, 37.8 C. Leukocytosis of 12k. SCr 0.61 mg/dL, near baseline. ESR/CRP mildly elevated. Blood cultures pending. Plan Vancomycin * Current regimen: 1000 mg IV every 12 hours * Random level obtained 11/22/24 resulted as 8.9 mcg/mL. This is subtherapeutic. * Change to 1000 mg IV every 8 hours. Predicted AUC at steady state: 530 mg/L.hr * Repeat random level ordered for: 11/23/24 Ceftriaxone * 2000 mg IV every 12 hours Pharmacy will continue to follow and will adjust dose/frequency as necessary. Thank you. Pharmacy has transitioned to AUC monitoring for vancomycin. AUC/IMELDA is the preferred PK/PD target and is associated with decreased risk of nephrotoxicity compared to traditional trough targets.
[2024-11-22] MEDS ORDERED: VANCOMYCIN HCL 1,000 MG/270 ML BAG IV SCH (14:00)
--- NOTE | 2024-11-22 15:00 | Hospitalist Progress Note ---
Date of Service November 22, 2024 Assessment & Plan (1) Atrial fibrillation with rapid ventricular response: Plan: -off cardizem drip -metoprolol -lanoxin -coumadin (2) Heart failure with mid-range ejection fraction: Plan: - last ECHO 12/2023, EF 50-55%, currently EF is 40-45% - lasix d/c-ed 2nd to hypotension (3) Diarrhea: Plan: -resolved - likely 2nd to viral enteritis - s/p IVF (4) HTN (hypertension): Plan: -cont metoprolol (5) Valvular vegetation: Plan: -strep gallolyticus prosthetic mitral valve endocarditis -con' rocephin -will need 6 weeks of abx -blood culture clearance follow up -will need colonoscopy Plan 64 yo F with PMHx of AFib on coumadin, HFmEF, HTN brought to [facility] on 11/19/24 from PCP office after being found to be in AFib with RVR. Per daughter's report, pt is noncompliant with her meds and takes her metoprolol from time to time. Recently, pt has been weak after having episodes of diarrhea and confusion. Admission and Anticipated Discharge Date Admission Date: November 19, 2024 Subjective No events overnight Review of Systems Review of Systems: CONST: Negative for fever, body aches and chills. HENT: Negative for neck pain/stiffness, headache, congestion, sore throat, swelling. EYES: Negative for discharge/pain or vision changes. RESP: Negative for cough/hemoptysis and shortness of breath. CV: Negative chest pain, difficulty breathing, palpitations. ABD: Negative pain, nausea, vomiting. : Negative increase frequency, dysuria, blood in urine or stool. MUSC: Negative for muscle aches, edema. SKIN: Negative rash, lesions/sores. NEURO: Negative headache, dizziness, weakness. Physical Exam Physical Exam: GENERAL APPEARANCE NAD, activity normal for age, well developed/ well nourished, no cyanosis, pallor, or diaphoresis. EYES lids/conjunctiva normal. EARS/NOSE/THROAT Mucous membranes moist, nares normal, lips/teeth normal uvula midline without oral pharyngeal erythema, exudate or swelling TMs normal bilaterally. No lymphangitis/lymphedema. HEAD/NECK normocephalic atraumatic, no facial trauma, neck is supple. RESPIRATORY respiratory effort normal, speaks in full sentences, no tripod position, no accessory muscle use. Lungs clear to auscultation without rhonchi, wheezes, rales CARDIAC Regular rate and rhythm, no edema. ABDOMINAL Soft, ND/NT. No evidence of fluid wave. No pulsatile masses on exam, rebound tenderness, Crodero sign or pain over Mcburney's point. MUSCLES/EXTREMITIES No abnormal range of motion, no swelling. SKIN Warm, pink and dry. No rashes, dermatoses, petechiae or lesions. NEUROLOGICAL Speech is clear and appropriate. Normal level of consciousness. Gait and coordination are normal. 5/5 strength in all extremities. PSYCH Normal mood and affect. Judgement/competence is appropriate Results & Data Results & Data Vital Signs (Past 12 Hours) Vital Signs Temp Pulse Pulse Resp BP BP Pulse Ox 11/22/24 12:08 37.2 C 83 17 131/93 95 11/22/24 10:00 11/22/24 10:00 91 H 24 128/86 94 11/22/24 08:30 91 H 14 113/70 94 11/22/24 08:15 85 14 101/69 94 11/22/24 08:00 87 11/22/24 07:20 75 14 104/60 99 11/22/24 03:47 37.6 C H O2 Del Method 11/22/24 12:08 Room Air 11/22/24 10:00 Room Air 11/22/24 10:00 Room Air 11/22/24 08:30 Room Air 11/22/24 08:15 Room Air 11/22/24 08:00 11/22/24 07:20 Room Air 11/22/24 03:47 PG Care Time/CCT Total # of Minutes Spent Total Time Spent with Patient: Total time spent is greater than 50% in coordination of care (as documented) at patient's floor/unit and/or counseling patient: Coding Level of Care Code 89678 SUB INP/OBS CARE 2/35MIN Diagnoses Atrial fibrillation with rapid ventricular response I48.91 Heart failure with mid-range ejection fraction I50.22 Diarrhea R19.7 HTN (hypertension) I10 Valvular vegetation I33.0
[2024-11-22] MEDS: WARFARIN SOD 4 MG TAB PO SCH (16:06)
[2024-11-22] MEDS ORDERED: Nursing to Pharmacy Communication SCH (18:15)
--- NOTE | 2024-11-22 21:52 | XCELERA ---
[id number]
[2024-11-23 05:43] LABS: Hematocrit (blood only) 30.3 % (37.0-47.0); Hemoglobin 10.3 g/dl (12.0-16.0); Mean Corpuscular Hemoglobin 29.4 pg (25.0-34.0); Mean Corpuscular Volume 86.6 fL (80.0-100.0); Mean Platelet Volume 12.1 fL (9.4-12.4); Platelet Count 186 K/uL (130-400); RDW Coefficient of Variation 14.4 % (11.5-14.5); RDW Standard Deviation 45.6 fL (36.4-46.3)
[2024-11-23 06:00] LABS: BUN Creatinine Ratio 5.9 (10-20); Calcium 7.7 mg/dl (8.6-10.3); Potassium 3.5 mmol/L (3.5-5.1)
[2024-11-23 06:30] LABS: ANTI-Xa, UFH(UnfractionatedHep < 0.10 IU/ml (0.3-0.7); INR 3.2 (0.9-1.1)
--- NOTE | 2024-11-23 10:08 | Hospitalist Progress Note ---
Date of Service November 23, 2024 Assessment & Plan (1) Valvular vegetation: Plan: -strep gallolyticus prosthetic mitral valve endocarditis -con' rocephin -will need 6 weeks of abx -blood culture clearance follow up, repeat cultures drawn / -once cleared PICC placement and d/c -ID following -will need colonoscopy (2) Atrial fibrillation with rapid ventricular response: Plan: -off cardizem drip -metoprolol -lanoxin -coumadin (3) Heart failure with mid-range ejection fraction: Plan: - last ECHO 12/2023, EF 50-55%, currently EF is 40-45% - lasix d/c-ed 2nd to hypotension (4) Diarrhea: Plan: -resolved - likely 2nd to viral enteritis - s/p IVF (5) HTN (hypertension): Plan: -cont metoprolol Plan 64 yo F with PMHx of AFib on coumadin, HFmEF, HTN brought to [facility] on 11/19/24 from PCP office after being found to be in AFib with RVR. Per daughter's report, pt is noncompliant with her meds and takes her metoprolol from time to time. Recently, pt has been weak after having episodes of diarrhea and confusion. Pt with strep gallolyticus prosthetic mitral valve endocarditis -con' rocephin -will need 6 weeks of abx -blood culture clearance follow up, repeat cultures drawn 11/23 -once cleared PICC placement and d/c Admission and Anticipated Discharge Date Admission Date: November 19, 2024 Subjective No events overnight Review of Systems Review of Systems: CONST: Negative for fever, body aches and chills. HENT: Negative for neck pain/stiffness, headache, congestion, sore throat, swelling. EYES: Negative for discharge/pain or vision changes. RESP: Negative for cough/hemoptysis and shortness of breath. CV: Negative chest pain, difficulty breathing, palpitations. ABD: Negative pain, nausea, vomiting. : Negative increase frequency, dysuria, blood in urine or stool. MUSC: Negative for muscle aches, edema. SKIN: Negative rash, lesions/sores. NEURO: Negative headache, dizziness, weakness. Physical Exam Physical Exam: GENERAL APPEARANCE NAD, activity normal for age, well developed/ well nourished, no cyanosis, pallor, or diaphoresis. EYES lids/conjunctiva normal. EARS/NOSE/THROAT Mucous membranes moist, nares normal, lips/teeth normal uvula midline without oral pharyngeal erythema, exudate or swelling TMs normal bilaterally. No lymphangitis/lymphedema. HEAD/NECK normocephalic atraumatic, no facial trauma, neck is supple. RESPIRATORY respiratory effort normal, speaks in full sentences, no tripod position, no accessory muscle use. Lungs clear to auscultation without rhonchi, wheezes, rales CARDIAC Regular rate and rhythm, no edema. ABDOMINAL Soft, ND/NT. No evidence of fluid wave. No pulsatile masses on exam, rebound tenderness, Cordero sign or pain over Mcburney's point. MUSCLES/EXTREMITIES No abnormal range of motion, no swelling. SKIN Warm, pink and dry. No rashes, dermatoses, petechiae or lesions. NEUROLOGICAL Speech is clear and appropriate. Normal level of consciousness. Gait and coordination are normal. 5/5 strength in all extremities. PSYCH Normal mood and affect. Judgement/competence is appropriate Results & Data Results & Data Vital Signs (Past 12 Hours) Vital Signs Temp Pulse Pulse Resp BP BP Pulse Ox 11/23/24 09:09 86 126/84 11/23/24 07:40 36.7 C 83 22 101/61 96 11/23/24 07:26 80 11/23/24 04:41 36.7 C 88 17 116/73 95 11/23/24 00:09 36.8 C 86 17 117/75 96 O2 Del Method 11/23/24 09:09 11/23/24 07:40 Room Air 11/23/24 07:26 11/23/24 04:41 Room Air 11/23/24 00:09 Room Air PG Care Time/CCT Total # of Minutes Spent Total Time Spent with Patient: Total time spent is greater than 50% in coordination of care (as documented) at patient's floor/unit and/or counseling patient: Coding Level of Care Code 86457 SUB INP/OBS CARE 2/35MIN Diagnoses Valvular vegetation I33.0 Atrial fibrillation with rapid ventricular response I48.91 Heart failure with mid-range ejection fraction I50.22 Diarrhea R19.7 HTN (hypertension) I10
--- NOTE | 2024-11-23 11:04 | Cardiology Progress Note ---
Date of Service November 23, 2024 Assessment & Plan (1) Prosthetic valve endocarditis: (2) Endocarditis: (3) Atrial fibrillation, permanent: (4) Cardiomyopathy: (5) Chronic anticoagulation: (6) History of mitral valve replacement with mechanical valve: (7) Tricuspid regurgitation: (8) Heart failure with mid-range ejection fraction: Plan ASSESSMENT/PLAN: 1. Mitral prosthetic valve endocarditis: Positive blood cultures and vegetations noted on mechanical mitral valve. On THUY, no obvious abscess or valve dehiscence. No urgent indication for surgical intervention at this time. Continue with IV antibiotics. Infectious disease consultation appreciated. Source of bacteremia unclear. Repeat echo at 6 weeks therapy and possibly in 2 or 3 weeks in the outpatient setting for surveillance purposes. 2. Cardiomyopathy: Mildly reduced LV systolic function however LV function appears normal on transesophageal echo while heart rate was controlled. May be related to tachycardia as she has been noncompliant with beta-ricky therapy in the outpatient setting. Chronic finding. Continue metoprolol succinate. She had difficulty taking 200 mg tablets at home but chose not to take 50 mg tablets x 4. Discussed with patient's daughter today and would recommend on discharge 200 mg tablet but that she can crush it to make it easier to swallow. 3. Chronic heart failure with midrange EF: She appears possibly mildly hypervolemic. Will give dose of Lasix 20 mg IV x 1. Has used Lasix as needed in the outpatient setting. Continue metoprolol succinate. LV systolic function appeared improved on transesophageal echo while her heart rate is controlled with current rate controlling medications. Can repeat echo in the outpatient setting and if LV systolic function remains normal, ARNI would not be necessary. Consider SGLT2 inhibitor in the outpatient setting. 4. Atrial fibrillation: Permanent. She has been noncompliant in the outpatient setting with metoprolol succinate as noted above. She apparently had difficulty swallowing the medication and the dose was reduced but with increased pills to maintain constant dose. Her daughter states that she did not wish to continue with so many pills. Continue metoprolol succinate 200 mg. Can continue digoxin. Heart rate very well-controlled currently. Continue anticoagulation for stroke risk reduction. Monitor CBC periodically. 5. 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 Goal INR 2.5-3.5. Continue warfarin. Monitor CBC periodically. 6. Confusion: Noted by patient's daughter, Latisha, on 11/08/2024. Continues to be confused. As per primary hospitalist service. 7. Tricuspid regurgitation: Can continue to monitor in the outpatient setting. 8. Disposition: Cardiology will continue to follow. Patient care communicated with primary hospitalist service, Dr. Hanna. Patient care also discussed with patient's daughter, Latisha, at the bedside. Requested hospital follow-up in the cardiology office in 2 or 3 weeks. Admission and Anticipated Discharge Date Admission Date: November 19, 2024 Subjective Patient seen earlier today with her daughter at the bedside. She remains confused and seem to lose her train of thought when speaking to her daughter in Faroese, per her daughter's report. She denied chest pain or shortness of breath. Patient reported cough. Her daughter had several questions in regards to endocarditis, PICC line, hospital duration. They were answered to the best my ability. Today's conversation occurred with translation by her daughter as per patient/family request. Physical Exam Physical Exam: Gen.: No acute distress. Alert. HEENT: Anicteric sclera. Neck: Prominent V waves. Mild JVD. Hepatojugular reflux. Cardiac: Irregularly irregular. Normal heart rate. Normal S1-S2. No murmurs, rubs, or gallops. Pulmonary: Clear to auscultation bilaterally without wheezes, rales, or rhonchi. Abdomen: Soft, nontender, nondistended, with normoactive bowel sounds. No bruits noted. Extremities: 2+ radial pulses bilaterally. 2+ posterior tibialis pulses bilaterally. No edema or cyanosis. No Janeway lesions, Osler's nodes, or splinter hemorrhages noted. Results & Data Vital Signs (Past 12 Hours) Vital Signs Temp Pulse Pulse Resp BP BP Pulse Ox 11/23/24 09:09 86 126/84 11/23/24 07:40 36.7 C 83 22 101/61 96 11/23/24 07:26 80 11/23/24 04:41 36.7 C 88 17 116/73 95 11/23/24 00:09 36.8 C 86 17 117/75 96 O2 Del Method 11/23/24 09:09 11/23/24 07:40 Room Air 11/23/24 07:26 11/23/24 04:41 Room Air 11/23/24 00:09 Room Air Intake & Output 11/21/24 11/22/24 11/23/24 11/24/24 06:59 06:59 06:59 06:59 Intake Total 4485.550 / 4485.550 3751.45 / 3751.45 2400.416 / 2400.416 Output Total 2401 / 2401 2701 / 2701 2100 / 2100 Balance 2084.550 / 2084.550 1050.45 / 1050.45 300.416 / 300.416 Weight 138 lb 3.677 oz Laboratory Results Laboratory Results - last 24 hr 11/22/24 11/22/24 11/23/24 11:57 14:51 05:27 WBC 8.30 RBC 3.50 L Hgb 10.3 L Hct 30.3 L MCV 86.6 MCH 29.4 MCHC 34.0 RDW Std Deviation 45.6 RDW Coeff of Jason 14.4 Plt Count 186 MPV 12.1 PT 31.0 H INR 3.2 H Heparin Anti-Xa, Unfract < 0.10 L Sodium 137 Potassium 3.5 Chloride 106 Carbon Dioxide 28 Anion Gap 3 BUN 3 L Creatinine 0.51 L Est Cr Clr Drug Dosing 91.0 eGFR 103.53 BUN/Creatinine Ratio 5.9 L Glucose 99 Calcium 7.7 L Random Vancomycin 8.9 L Digoxin < 0.3 L Diagnostic Findings Labs reviewed and notable for stable renal function, normal potassium, normal hemoglobin, undetectable digoxin level. Therapeutic INR. Blood cultures 11/21/2024: Negative x 2. Blood cultures 11/20/2024: Streptococcus gallalyticus x 2. Telemetry personally reviewed: Atrial fibrillation with adequate rate control. THUY 11/22/2024: LVEF 60-65%. Normal wall motion. Severe left and moderate right atrial dilation. Prominent left atrial appendage with spontaneous echo contrast within the appendage and left atrium. Mechanical bileaflet mitral valve with 2 visualized vegetations. Mild MR. Moderate TR. Normal RVSP. Medications Administered Current Inpatient Medications Acetaminophen (Acetaminophen 325 Mg Tab) 650 mg PO Q4H PRN PRN Reason: headache Stop: 12/19/24 15:37 Last Admin: 11/21/24 15:50 Dose: 650 mg Digoxin (Digoxin 0.125 Mg Tab) 0.125 mg PO DAILY@1600 [facility] Stop: 12/20/24 15:59 Last Admin: 11/22/24 16:06 Dose: 0.125 mg Ceftriaxone Sodium (Rocephin) 2,000 mg in 50 mls @ 100 mls/hr IV Q12H [facility] Stop: 01/01/25 14:59 Last Infusion: 11/23/24 02:54 Dose: Infused Metoprolol Succinate (Metoprolol Succ 50mg Ext Rel Tab) 200 mg PO DAILY [facility] Stop: 12/20/24 08:59 Last Admin: 11/23/24 09:10 Dose: 200 mg Ondansetron HCl (Ondansetron Inj 2 Mg/Ml 2 Ml Vial) 4 mg IV Q6H PRN PRN Reason: Nausea Stop: 12/19/24 15:39 Warfarin Sodium (Warfarin Sod 4 Mg Tab) 4 mg PO DAILY@1600 [facility] Stop: 12/22/24 15:59 Last Admin: 11/22/24 16:06 Dose: 4 mg PG Care Time/CCT Total # of Minutes Spent Total Time Spent with Patient: Total time spent is greater than 50% in coordination of care (as documented) at patient's floor/unit and/or counseling patient: Coding Level of Care Code 28585 SUB INP/OBS CARE 3/50MIN Diagnoses Prosthetic valve endocarditis T82.6XXA; I33.0 Endocarditis I38 Atrial fibrillation, permanent I48.21 Cardiomyopathy I42.9 Chronic anticoagulation Z79.01 History of mitral valve replacement with mechanical valve Z95.2 Tricuspid regurgitation I07.1 Heart failure with mid-range ejection fraction I50.22
[2024-11-23] MEDS ORDERED: VANCOMYCIN LEVEL ONE (12:00)
[2024-11-23] MEDS: FUROSEMIDE INJ 20 MG/2 ML VIAL IV ONE (15:24)
[2024-11-24 06:38] LABS: INR 3.6 (0.9-1.1); Prothrombin Time 34.8 Seconds (9.0-12.0)
--- NOTE | 2024-11-24 09:22 | Infectious Disease Progress Nt ---
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 R tetra) Abx: Vanc 11/20 - 11/22 Ceftriaxone 11/20 - present 64 yo F with afib on coumadin, CHF, HTN, rheumatic mitral valve disease s/p mechanical MVR (1999) who presented on 11/19 from primary care clinic after being found to be in afib with RVR in the setting of 2 weeks of feeling ill with chills, myalgias, found to have Strep gallolyticus prosthetic mitral valve endocarditis. On presentation, pt was afebrile. Labs showed WBC 15.45. CXR without pulmonary edema or consolidation. CT head with no acute intracranial findings. A TTE on 11/20 showed a new mass on the mitral valve--clot vs endocarditis. Blood cultures were obtained on 11/20 and grew Strep gallolyticus in 4/4 bottles. THUY on 11/21 showed 2 mechanical mitral valve vegetations (mobile and up to 1 cm in length), no obvious abscess or valve dehiscence. Per cardiology, no urgent indication for surgical intervention at this time. Pt noted to have continued altered mental status, raises concern for septic emboli to brain. Recommendations: - Given altered mental status, recommend MRI brain with and without contrast to evaluate for septic emboli - Continue ceftriaxone 2 g IV q24h - Check at least weekly CBC with diff, CMP while on ceftriaxone to monitor for toxicity - Pt will need PICC line - Strep gallolyticus bacteremia is associated with colon cancer--recommend a colonoscopy as outpatient Discussed with pt's daughter and with hospitalist. Will continue to follow Admission and Anticipated Discharge Date Admission Date: November 19, 2024 Subjective Subsequent visit was provided via telemedicine using two-way real-time interactive telecommunication between the patient and the telemedicine provider. For the duration of the visit, the provider was performing the assessment from a different facility than the patient. This includesuse of bluetooth stethoscope forauscultationperformed by the telepresenter that the telemedicine provider can hear if described in the physical exam. Support Clerk contact information: Please call [facility] . (Phone Number For Physician Use Only) After establishing a telemedicine visit, patient was: Patient was verified with two unique identifiers, Patient/authorized rep acknowledged consent and understanding and Gave permission to continue telehealth session Time Spent with Patient: Subsequent => 35 min 5/4 BCx NGTD Afebrile No acute events Pt is confused Review of System Unable to obtain given patient condition. Physical Exam Physical Exam: GEN: laying in bed in NAD. RESP: No increased work of breathing NEURO: Alert. Slow speech, having difficulty completing thoughts/finishing sente nces Results & Data Vital Signs (Past 12 Hours) Vital Signs Temp Pulse Resp BP Pulse Ox O2 Del Method 11/24/24 07:54 36.7 C 87 18 116/71 93 Room Air 11/24/24 03:01 36.8 C 86 16 120/73 96 Room Air 11/23/24 23:14 Room Air 11/23/24 22:57 36.5 C 74 16 105/68 97 Room Air Medications Administered Current Inpatient Medications Acetaminophen (Acetaminophen 325 Mg Tab) 650 mg PO Q4H PRN PRN Reason: headache Stop: 12/19/24 15:37 Last Admin: 11/21/24 15:50 Dose: 650 mg Digoxin (Digoxin 0.125 Mg Tab) 0.125 mg PO DAILY@1600 [facility] Stop: 12/20/24 15:59 Last Admin: 11/23/24 15:28 Dose: 0.125 mg Ceftriaxone Sodium (Rocephin) 2,000 mg in 50 mls @ 100 mls/hr IV Q12H [facility] Stop: 01/01/25 14:59 Last Infusion: 11/24/24 04:21 Dose: Infused Metoprolol Succinate (Metoprolol Succ 50mg Ext Rel Tab) 200 mg PO DAILY [facility] Stop: 12/20/24 08:59 Last Admin: 11/23/24 09:10 Dose: 200 mg Ondansetron HCl (Ondansetron Inj 2 Mg/Ml 2 Ml Vial) 4 mg IV Q6H PRN PRN Reason: Nausea Stop: 12/19/24 15:39 Warfarin Sodium (Warfarin Sod 4 Mg Tab) 4 mg PO DAILY@1600 [facility] Stop: 12/22/24 15:59 Last Admin: 11/23/24 15:28 Dose: 4 mg
--- NOTE | 2024-11-24 10:13 | Cardiology Progress Note ---
Date of Service November 24, 2024 Assessment & Plan (1) Prosthetic valve endocarditis: (2) Endocarditis: (3) Atrial fibrillation, permanent: (4) Cardiomyopathy: (5) Chronic anticoagulation: (6) History of mitral valve replacement with mechanical valve: (7) Tricuspid regurgitation: (8) Heart failure with mid-range ejection fraction: Plan ASSESSMENT/PLAN: 1. Mitral prosthetic valve endocarditis: Positive blood cultures (Streptococcus gallalyticus) on 11/20/2024 and vegetations noted on mechanical mitral valve. On THUY, no obvious abscess or valve dehiscence. No urgent indication for surgical intervention at this time. Continue with IV antibiotics. Repeat blood cultures on 11/21/2024 and 11/23/2024 negative to date. Infectious disease consultation appreciated and recommended outpatient colonoscopy given Streptococcus gallolyticus association with colon cancer. Repeat echo at 6 weeks therapy and possibly sooner in the outpatient setting for surveillance purposes. Brain MRI pending. 2. Cardiomyopathy: Mildly reduced LV systolic function however LV function appe ars normal on transesophageal echo while heart rate was controlled. May be related to tachycardia as she has been noncompliant with beta-ricky therapy in the outpatient setting. Chronic finding. Continue metoprolol succinate. She had difficulty taking 200 mg tablets at home but chose not to take 50 mg tablets x 4. Discussed with patient's daughter and would recommend on discharge 200 mg tablet but that she can crush it to make it easier to swallow. 3. Chronic heart failure with midrange EF: She appeared mildly hypervolemic yesterday and had cough. She was given 1 dose of Lasix 20 mg IV and her cough is resolved. She appears euvolemic. Has used Lasix as needed in the outpatient setting. Continue metoprolol succinate. LV systolic function appeared improved on transesophageal echo while her heart rate is controlled with current rate controlling medications. Can repeat echo in the outpatient setting and if LV systolic function remains normal, ARNI would not be necessary. SGLT2 inhibitor not initiated due to compliance issues with her other medications and her desire to take less pills. 4. Atrial fibrillation: Permanent. She has been noncompliant in the outpatient setting with metoprolol succinate as noted above. She apparently had difficulty swallowing the medication and the dose was reduced but with increased pills to maintain constant dose. Her daughter states that she did not wish to continue with so many pills. Continue metoprolol succinate 200 mg. Heart rate very well-controlled on low-dose digoxin and metoprolol succinate and sometimes now in the 50s. She had not been taking digoxin in the outpatient setting. Discontinue digoxin. Continue anticoagulation for stroke risk reduction. Monitor CBC periodically. 5. 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 Goal INR 2.5-3.5. Continue warfarin. Monitor CBC periodically. 6. Confusion: Noted by patient's daughter, Latisha, on 11/08/2024. Has continue d to be confused throughout her hospital stay and however today she was able to participate in conversation with professional 911 emergency dispatcher better than previously. Brain MRI is pending to evaluate for septic emboli. As per primary hospitalist service. 7. Tricuspid regurgitation: Can continue to monitor in the outpatient setting. 8. Disposition: Cardiology will continue to follow. Patient care communicated with primary hospitalist service, Dr. Hanna. Patient care also discussed with patient's daughter, Latisha, at the bedside. Requested hospital follow-up in the cardiology office in 2 or 3 weeks. Admission and Anticipated Discharge Date Admission Date: November 19, 2024 Subjective She was seen this morning. Initially, history was obtained via official leather toggler through iPad at the bedside. Near the end of the visit, her daughter, Latisha, presented to the bedside. She denies chest pain, shortness of breath, syncope, near syncope, palpitations. Her coughing has significantly improved following a dose of Lasix yesterday. When asked if she was taking digoxin at home via her daughter, her daughter states that she has not been taking digoxin. She clarified with her mother that she was taking it but ran out of the medication sometime ago. Physical Exam Physical Exam: Gen.: No acute distress. Alert and oriented x 3. HEENT: Anicteric sclera. Neck: No appreciable JVD. No appreciable hepatojugular reflux. Cardiac: Irregularly irregular. Normal heart rate. Normal S1-S2. No murmurs, rubs, or gallops. Pulmonary: Clear to auscultation bilaterally without wheezes, rales, or rhonchi. Abdomen: Soft, nontender, nondistended, with normoactive bowel sounds. No bruits noted. Extremities: 2+ radial pulses bilaterally. 2+ posterior tibialis pulses bilatera lly. No edema or cyanosis. Results & Data Vital Signs (Past 12 Hours) Vital Signs Temp Pulse Resp BP Pulse Ox O2 Del Method 11/24/24 07:54 36.7 C 87 18 116/71 93 Room Air 11/24/24 03:01 36.8 C 86 16 120/73 96 Room Air 11/23/24 23:14 Room Air 11/23/24 22:57 36.5 C 74 16 105/68 97 Room Air Intake & Output 11/22/24 11/23/24 11/24/24 11/25/24 06:59 06:59 06:59 06:59 Intake Total 3751.45 / 3751.45 2400.416 / 2400.416 275 / 275 Output Total 2701 / 2701 2100 / 2100 900 / 900 Balance 1050.45 / 1050.45 300.416 / 300.416 -625 / -625 Weight 138 lb 3.677 oz 144 lb 6.444 oz Laboratory Results Laboratory Results - last 24 hr 11/24/24 05:41 PT 34.8 H INR 3.6 H Diagnostic Findings Labs reviewed. INR acceptable. Telemetry personally reviewed: Rate controlled atrial fibrillation with brief episodes dropping into the 50s. Blood cultures negative x 2 on 11/21/2024 and so far on 11/23/2024. Medications Administered Current Inpatient Medications Acetaminophen (Acetaminophen 325 Mg Tab) 650 mg PO Q4H PRN PRN Reason: headache Stop: 12/19/24 15:37 Last Admin: 11/21/24 15:50 Dose: 650 mg Digoxin (Digoxin 0.125 Mg Tab) 0.125 mg PO DAILY@1600 [facility] Stop: 12/20/24 15:59 Last Admin: 11/23/24 15:28 Dose: 0.125 mg Ceftriaxone Sodium (Rocephin) 2,000 mg in 50 mls @ 100 mls/hr IV Q12H [facility] Stop: 01/01/25 14:59 Last Infusion: 11/24/24 04:21 Dose: Infused Metoprolol Succinate (Metoprolol Succ 50mg Ext Rel Tab) 200 mg PO DAILY [facility] Stop: 12/20/24 08:59 Last Admin: 11/24/24 10:00 Dose: 200 mg Ondansetron HCl (Ondansetron Inj 2 Mg/Ml 2 Ml Vial) 4 mg IV Q6H PRN PRN Reason: Nausea Stop: 12/19/24 15:39 Warfarin Sodium (Warfarin Sod 4 Mg Tab) 4 mg PO DAILY@1600 [facility] Stop: 12/22/24 15:59 Last Admin: 11/23/24 15:28 Dose: 4 mg PG Care Time/CCT Total # of Minutes Spent Total Time Spent with Patient: Total time spent is greater than 50% in coordination of care (as documented) at patient's floor/unit and/or counseling patient: Coding Level of Care Code 05546 SUB INP/OBS CARE 3/50MIN Diagnoses Prosthetic valve endocarditis T82.6XXA; I33.0 Endocarditis I38 Atrial fibrillation, permanent I48.21 Cardiomyopathy I42.9 Chronic anticoagulation Z79.01 History of mitral valve replacement with mechanical valve Z95.2 Tricuspid regurgitation I07.1 Heart failure with mid-range ejection fraction I50.22
[2024-11-24] MEDS: cefTRIAXone SODIUM 2,000 MG/50 ML BAG IV SCH (11:13)
[2024-11-24] MEDS: GADOBUTROL 65ML VIAL IV ONE (11:54)
--- NOTE | 2024-11-24 12:58 | Magnetic Resonance Report ---
MRI OF THE BRAIN COMBO CLINICAL HISTORY: Confusion. Prosthetic valve endocarditis. COMPARISON STUDY: Head CT November 19, 2024. TECHNIQUE: MRI of the brain was performed utilizing various T1 and T2-weighted sequences in the axial , sagittal, and coronal planes. Contrast-enhanced sequences were acquired following the administratio n of 6.5 cc of Gadavist. FINDINGS: There are numerous small supratentorial and infratentorial foci of restricted diffusion. Th e majority of these foci are cortical or subcortical in location. Several white matter foci are also present. The largest is a 1.1 cm cortical focus within the left temporal lobe on axial diffusion-weig hted sequence image 17 of 34. An 8 mm focus restricted diffusion within the right lateral piotr on pipo ge 12 is present. These lesions have mild associated T2 hyperintensity. Several these lesions demonst rate enhancement. No rim-enhancing collection to suggest an abscess at this time is identified. Ventr icular system is unremarkable. Basal cisterns are patent. Flow-voids for the major intracranial vesse ls are present. Calvarial signal is normal. There is no evidence for sinusitis. There is no mastoid e ffusion. Encephalomalacia within the superior medial right cerebellar hemisphere represents an old in farct. There are several small foci susceptibility artifact on the gradient echo sequence suggestive of old blood products or amyloid deposition. IMPRESSION: 1. Numerous small supratentorial and infratentorial foci of restricted diffusion with mild associated T2 hyperintensity. Several lesions demonstrate enhancement. These are consistent with embolic infarc ts and given the clinical history are likely septic in etiology. No rim-enhancing fluid collection to suggest abscess. A short-term follow-up MRI of brain with and without contrast to exclude abscess fo rmation is recommended. Findings will be called/faxed to the ordering provider at time of dictation. 2. Old right cerebellar infarct. 3. A few small foci susceptibility artifact on the gradient echo sequence. These foci favor old blood products or amyloid deposition. ACT 112: Negative or not required by law. Electronically signed by: Adis Beltre M.D. 11/24/2024 12:57 PM
--- NOTE | 2024-11-24 16:04 | Discharge Summary ---
Date of Service November 24, 2024 Admission HPI Per Admitting Provider Pt is a 64 y/o female with pmh of afib on coumadin, CHF, HTN, who present from PMD office after being found to be in afib with RVR. Pt's daughter states she is non compliant with her meds and takes her metoprolol from time to time. She also states the patient has been weak with episodes of diarrhea and confusion. In the ER patient had CT head which was negative. UA pending at this time. Pt denies any abdominal pain or fever. In the ER she was given a cardizem bolus and started on cardizem drip along with IVF. She is being admitted for further treatment of her afib with RVR. 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 Rate controlled on metoprolol. Digoxin discontinued due to bradycardia. Discharge Exam General: Awake, conversant. Nepali-speaking. Heart: S1, S2/irregularly irregular rhythm, no murmur rubs or gallops Lungs: Clear to auscultation bilaterally. Normal effort Abdomen: Soft/nontender/nondistended. No hepatosplenomegaly Extremities: No clubbing/cyanosis. No edema Behavior: Appropriate, cooperative Discharge Data Allergies Allergy/AdvReac Type Severity Reaction Status Date / Time No Known Allergies Allergy Verified 11/19/24 15:42 Consultations 11/19/24 15:38 Consult Cardiology Stat 11/19/24 15:42 ED Decision to Admit Stat 11/21/24 13:54 Consult Infectious Diseases Routine 11/21/24 14:07 Consult Anesthesiology Routine 11/24/24 15:57 Burn CD for patient Stat Procedures Performed Operation Date: 11/22/24 07:30 Actual Procedures s Echo Doppler Complete - Alexsander Birch MD p Echo Transesophageal - Alexsander Birch MD s Echo Color Flow - Alexsander Birch MD Ordered Studies Chest X-Ray 11/19/24 12:55 XR chest 1V portable CLINICAL HISTORY: Chest pain, nonspecific COMPARISON STUDY: Chest radiograph December 02, 2023. FINDINGS: Median sternotomy wires and prosthetic cardiac valve are noted. The heart is moderately enlarged. There is no evidence for pulmonary edema. Linear bibasilar densities favor atelectasis. There is no consolidation to suggest pneumonia. There is no pneumothorax or pleural effusion. IMPRESSION: 1. Cardiomegaly without evidence for pulmonary edema. 2. Linear bibasilar densities suggestive of atelectasis. ACT 112: Negative or not required by law. Electronically signed by: Adis Beltre M.D. 11/19/2024 1:[address] 11/19/24 13:57 CT SCAN OF THE BRAIN WITHOUT IV CONTRAST CLINICAL HISTORY: Weakness. Confusion. COMPARISON STUDY: TECHNIQUE: Unenhanced axial CT scan of the brain was performed from the vertex to the skull base. A dose lowering technique was utilized adhering to the principles of ALARA. CT DOSE: 547.75 mGy.cm FINDINGS: Brain parenchyma: No acute intracranial hemorrhage, midline shift or mass effect is present. Wilson-white matter differentiation is preserved. There are no extra- axial fluid collections. There are no findings to suggest acute dural sinus thrombosis or acute territorial infarct. A 1.6 cm focus of encephalomalacia within the medial right cerebellar hemisphere favors an old infarct. Small hypodensities within the bilateral basal ganglia favor prominent perivascular spaces although old infarcts could appear similar. Ventricles, sulci, cisterns: There is no hydrocephalus. The basal cisterns are patent. Calvarium: Unremarkable. Sinuses and mastoids: The visualized paranasal sinuses are clear. The mastoid air cells are well pneumatized. Orbits: The bony orbits are grossly intact. IMPRESSION: 1. No acute intracranial findings. 2. 1.6 cm focus of encephalomalacia within the right cerebellar hemisphere which favors an old infarct. ACT 112: Negative or not required by law. Electronically signed by: Adis Beltre M.D. 11/19/2024 3:02 PM Brain MRI 11/24/24 10:35 MRI OF THE BRAIN COMBO CLINICAL HISTORY: Confusion. Prosthetic valve endocarditis. COMPARISON STUDY: Head CT November 19, 2024. TECHNIQUE: MRI of the brain was performed utilizing various T1 and T2-weighted sequences in the axial, sagittal, and coronal planes. Contrast-enhanced sequences were acquired following the administration of 6.5 cc of Gadavist. FINDINGS: There are numerous small supratentorial and infratentorial foci of restricted diffusion. The majority of these foci are cortical or subcortical in location. Several white matter foci are also present. The largest is a 1.1 cm cortical focus within the left temporal lobe on axial diffusion-weighted sequence image 17 of 34. An 8 mm focus restricted diffusion within the right lateral piotr on image 12 is present. These lesions have mild associated T2 hyperintensity. Several these lesions demonstrate enhancement. No rim-enhancing collection to suggest an abscess at this time is identified. Ventricular system is unremarkable. Basal cisterns are patent. Flow-voids for the major intracran ial vessels are present. Calvarial signal is normal. There is no evidence for sinusitis. There is no mastoid effusion. Encephalomalacia within the superior medial right cerebellar hemisphere represents an old infarct. There are several small foci susceptibility artifact on the gradient echo sequence suggestive of old blood products or amyloid deposition. IMPRESSION: 1. Numerous small supratentorial and infratentorial foci of restricted diffusion with mild associated T2 hyperintensity. Several lesions demonstrate enhancement. These are consistent with embolic infarcts and given the clinical history are likely septic in etiology. No rim-enhancing fluid collection to suggest abscess. A short-term follow-up MRI of brain with and without contrast to exclude abscess formation is recommended. Findings will be called/faxed to the ordering provider at time of dictation. 2. Old right cerebellar infarct. 3. A few small foci susceptibility artifact on the gradient echo sequence. These foci favor old blood products or amyloid deposition. ACT 112: Negative or not required by law. Electronically signed by: Adis Beltre M.D. 11/24/2024 12:57 PM 11/19/24 13:[address] [CT head/brain wo con] Stat 11/24/24 10:35 MRI Brain [MR brain wo/w con] Routine Hospital Course (1) Valvular vegetation: Infective endocarditis involving prosthetic mitral valve -strep gallolyticus prosthetic mitral valve endocarditis Continue IV Rocephin -will need 6 weeks of abx Initial plan was to wait for negative blood cultures, then place a PICC line However today patient was found to have septic embolization causing embolic strokes. The patient is now being transferred to [facility] for CT surgery evaluation. -will eventually need colonoscopy as Streptococcus gallolyticus bacteremia is seen in colon cancer (2) Atrial fibrillation with rapid ventricular response: -off cardizem drip - Continue metoprolol Cardiology discontinued digoxin today as the patient was mildly bradycardic -coumadin. Goal INR 2.5-3.5. Today's INR was 3.6. I was going to continue Coumadin (3) Heart failure with mid-range ejection fraction: - last ECHO 12/2023, EF 50-55%, currently EF is 40-45% - lasix d/c-ed 2nd to hypotension (4) Diarrhea: -resolved - likely 2nd to viral enteritis - s/p IVF (5) HTN (hypertension): -cont metoprolol Plan The patient has infective endocarditis involving prosthetic valve, strep bacteremia, now with septic emboli to brain. She will need CT surgery evaluation as thus the patient is being transferred to [facility]. 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 Advised to know that you are being transferred to [facility] for CT surgery evaluation Pending Studies at Discharge: No Stand-Alone Forms: My [facility] Skilled Items Patient informed of condition?: Yes DNR: No Discharge Level of Care: Other Communicable Disease: No Discharge Prognosis: Stable Lines: Peripheral IV Urinary Catheter: No Medications and DC Order Prescriptions: Continued acetaminophen 325 mg tablet 650 mg PO Q4H PRN (Reason: headache) warfarin 4 mg tablet See Rx Instructions PO DAILY Rx Instructions: PER PT'S DAUGHTER "UNSURE IF TAKING" 6mg qSaturday & 4mg x 6 days or as directed by [facility] metoprolol succinate 50 mg tablet extended release 24 hr 200 mg PO DAILY Qty: 360 3RF Rx Instructions: PER PT'S DAUGHTER "UNSURE WHEN SHE LAST TOOK THIS MED". furosemide 20 mg tablet 20 mg PO DAILY PRN (Reason: short of breath) Qty: 90 1RF Rx Instructions: take 2 days and then qday as needed (DME) compress.stocking,knee,reg,med Misc See Rx Instructions .Route Qty: 2 0RF Rx Instructions: As directed 15mmHg, R60.9 hydrocortisone 2.5 % cream 1 applic topical BID PRN (Reason: skin irritation) Qty: 28 1RF amoxicillin 500 mg capsule 2,000 mg PO .COMPLEX Qty: 4 5RF Rx Instructions: 2,000 mg PO ; Take 4 caps 30-60 minutes prior to dental appointment Discontinued digoxin 125 mcg (0.125 mg) tablet 125 mcg PO DAILY Qty: 90 3RF Rx Instructions: PER PT'S DAUGHTER "BOTTLE EMPTY, UNSURE IF TAKING". Discharge Orders: Discharge Order (Routine); Ordered 11/24/24 Ordered By: Ella Ch Admission Data Admit Date/Time: 11/19/24 15:41 Attending Provider: Ella Ch Admit Provider: Kenton Hanna Primary Care Provider: Angi Epperson Other Providers: Nicho Mena; Kenton Hanna; Kacie Bourgeois; Kaylee Barker; Fozia Harris; Rick Heard; Leann Castro; Sarah Yoder; Alexsander Birch; [facility]; [facility]
[2024-11-24 16:33] VITALS: RESP 16; TEMP 98.4; O2SAT 99
[2024-11-24 18:24] VITALS: BP 93/56; PULSE 83
[2024-11-24] MEDS ORDERED: LORazepam 1 MG TAB PO STA (19:02)
== END 2024-11-24 19:05 | disposition short-term general hospital (02) | DRG 280 ==
LOC: SUATTDRO → ED 12:37 → SUATTDRO 15:41 → 2E 15:41

== ENCOUNTER 2025-02-14 14:17 | Inpatient (IN) ==
[2025-02-14 16:33] LABS: Hematocrit (blood only) 46.6 % (37.0-47.0); Hemoglobin 15.4 g/dl (12.0-16.0); Immature Granulocytes # (auto) 0.03 K/uL (0.01-0.20); Immature Granulocytes % (auto) 0.3 %; Mean Corpuscular Hemoglobin 29.7 pg (25.0-34.0); Mean Corpuscular Volume 90.0 fL (80.0-100.0); Platelet Count 171 K/uL (130-400); RDW Standard Deviation 47.0 fL (36.4-46.3); Red Blood Count 5.18 M/uL (4.20-5.40); White Blood Count 10.91 K/ul (4.8-10.8)
[2025-02-14 16:46] LABS: Anion Gap 7 (3-11); Bilirubin,Total 0.7 mg/dl (0.2-1.0); Calcium 9.8 mg/dl (8.6-10.3); Carbon Dioxide 29 mmol/L (21-32); Chloride 101 mmol/L (98-107); Potassium 4.3 mmol/L (3.5-5.1); Sodium 137 mmol/L (136-145)
--- NOTE | 2025-02-14 16:49 | Emergency Department Note ---
Impression & Plan Acute CVA (cerebrovascular accident), Stroke-like symptoms, Vision problems, Elevated troponin I level ED Provider Note NAME: APARNA MCNALLY AGE: 65 SEX: F : 1960 ARRIVES VIA: Walk-In INFORMANT: Patient, the patient's daughter ED PROVIDER(S): Akshat Shin DO CHIEF COMPLAINT: Off balance HPI: The patient is a 65-year-old female who presents to the emergency department for multiple complaints. The patient's been having problems with her balance but also noticing she has problems with her right eye vision. The patient states the symptoms began approximately 9 to 10 days ago. The patient denies having any headache. She denies having any trauma. She called her family doctor about the symptoms last week and was advised to come to the emergency department. The patient denies having any chest pain. She has a history of bacterial endocarditis with a valve replacement. She does take warfarin. She states that she has been compliant with her outpatient medications otherwise. ROS: See above HPI for pertinent positives & negatives. A total of 10 systems reviewed and were otherwise negative. PAST MEDICAL HISTORY: See Below PAST SURGICAL HISTORY: See Below FAMILY HISTORY: See Below SOCIAL HISTORY: See Below HOME MEDICATIONS: See Below ALLERGIES: See Below VITALS: See Below PHYSICAL EXAMINATION: GENERAL: Patient is awake alert in no acute distress patient is resting comfortably and showing no signs of anxiety EYES: The conjunctivae are clear. The pupils are round and reactive. EARS, NOSE, MOUTH AND THROAT: The nose is without any evidence of any deformity. NECK: The neck is nontender and supple. RESPIRATORY: Normal respiratory effort is noted there is no evidence of wheezing rhonchi or rales CARDIOVASCULAR: Irregular heart sounds were noted to auscultation. Metallic click was noted with valve closure, GASTROINTESTINAL: The abdomen is soft. Abdomen is nontender. MUSCULOSKELETAL/EXTREMITIES: There is no evidence of gross deformity full range of motion is noted in the hips and shoulders. SKIN: There is no obvious evidence of any rash. There are no petechiae, pallor or cyanosis noted. NEUROLOGIC: Patient is awake alert and oriented x3 strength is symmetric patellar reflexes are 2+ bilaterally MEDICAL DECISION MAKING: The patient is a 65-year-old female who presented to the emergency department for an evaluation of visual issues as well as not being able to walk as normal as usual. The patient has a history of valve replacement surgery. She has a history of endocarditis. The patient did not have any obvious focal neurologic deficits. I discussed the patient's laboratory and radiographic studies with her and her daughter. Given her findings I did feel the patient would be a better candidate for further stroke workup as an inpatient. For this reason I discussed her condition with the on-call [facility] hospitalist. They have agreed to evaluate the patient in the emergency department for further management and disposition. Triage Nursing notes reviewed. Prior medical records reviewed Vital Signs: reviewed and remarkable for no significant abnormalities Differential diagnosis: Infection, dehydration, metabolic abnormality, hypo/hyperglycemia, electrolyte disturbance, anemia, hypoxia, cardiac sources, intracerebral event, toxicologic, neurologic, as well as other pathologies. ER treatment provided: See below Diagnostics interpreted by me: ECG: EKG was obtained in the emergency department. My interpretation is atrial fibrillation at 105 bpm. PVCs were noted. Nonspecific ST abnormalities were also noted. This was compared to a tracing from November 19, 2024. No specific changes were noted. Cardiac Monitoring: An order was placed for continuous cardiac monitoring. The monitor shows a rate of 79 bpm with atrial fibrillation.. Laboratory studies: As stated above and show below. Imaging studies: See below. Radiographic imaging was reviewed by myself Consultation(s): I discussed this case with Dr. Arboleda who is on-call for the [facility] hospice group. Past Med/Surg History Problem List (Updated 02/15/25 @ 00:36 by Akshat Shin DO) Acute CVA (cerebrovascular accident) (Acute) Elevated troponin I level (Acute) Vision problems (Acute) Stroke-like symptoms (Acute) Cerebral septic emboli Valvular vegetation 11/2024- admitted to 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 Rate controlled on metoprolol." Transferred to [facility] for [facility] surgery due to septic embolization causing emboic strokes History of transesophageal echocardiography (THUY) 11/2024 Chronic anticoagulation History of atrial fibrillation Tricuspid regurgitation hx History of stroke - 1999, still has balance and walking issues, still has some right sided weakness, burning sensation left foot from stroke - embolic strokes 11/24/24 from septic embolization per records - per discharge records 11/30/24- recommend vascular neurology follow up in 6- 8 weeks History of hypertension AGUILAR (dyspnea on exertion) Rheumatic mitral valve disease Surgical History History of mitral valve replacement with mechanical valve 2000, [place], [place]; f/u [facility] S/P wisdom tooth extraction Family History Father Colorectal cancer Denies family history of Ovarian cancer Prostate cancer Myocardial infarction Breast cancer Social History Smoking Status: Never smoker Second Hand Exposure: Yes (hx many years ago); Do You Dip or Chew Tobacco: No; Hx Alcohol Use: No Hx Substance Use: No Preferred Language: Moroccan Communication Ability: Effective Communication Tools: IPad Visual Impairment: No Limitations Hearing Ability: Normal Belt Loop Cutter Required: Yes Beliefs That Will Affect Care: None marital status: Single Current Living Situation: Family Current Living Situation Comment: lives with daughter current occupational status: unemployed and retired Other Information That Helps Us Care for You: No Feels Safe at Home: Yes Safety Concerns: Feels Safe At This Time Childhood Exposure to Second-Hand Smoke: No Diet: regular Dental Care, Regularly: No Physical Activity Frequency: Does not Exercise Seatbelt Use: always Sunscreen Use: Yes Assistive Devices: Glasses Allergies Allergies Allergy/AdvReac Type Severity Reaction Status Date / Time No Known Allergies Allergy Verified 01/12/25 09:25 Home Meds Home Medications Medication Instructions Recorded Confirmed acetaminophen 325 mg tablet 650 mg PO Q4H PRN headache 11/21/22 02/14/25 amoxicillin 500 mg capsule 2,000 mg PO .COMPLEX PRN dental 12/10/24 02/14/25 appointment metoprolol succinate 50 mg 200 mg PO QAM 05/23/25 07/28/25 tablet,extended release 24 hr Previous Rx's Medication Instructions Recorded hydrocortisone 2.5 % topical cream 1 applic topical BID PRN skin 10/01/21 irritation #28 grams compress.stocking,knee,reg,med #2 ea 04/28/23 furosemide 20 mg tablet 20 mg PO DAILY PRN short of breath 12/20/24 #90 tabs warfarin 4 mg tablet See Rx Instructions .Route 01/24/25 .COMPLEX #100 tabs enoxaparin 60 mg/0.6 mL 60 mg (0.6 mL) subcut Q12H #10 02/10/25 subcutaneous syringe syringes peg 3350-sod sulf,[id number]-chr-wpb See Rx Instructions PO .COMPLEX #2 02/14/25 178.7-7.3-0.5-1.12-0.9 gram oral mL soln (Suflave) Results & Data (ED) Vital Signs Vital Signs - 24 hr 02/14/25 14:19 02/14/25 15:56 02/14/25 17:03 Temperature 36.6 C Temperature Source Temporal Artery Scan Pulse Rate 74 112 H Pulse Rate [Finger] 90 Respiratory Rate 18 20 Blood Pressure 116/78 Blood Pressure [Left Arm] Blood Pressure Mean 90 Blood Pressure Mean [Left Arm] Pulse Oximetry 100 100 Oxygen Delivery Method Room Air Sepsis Recent Fever Within 48 Hours No Sepsis New/Unexplained Change in Mental Status N/A Sepsis Action Taken by Nursing No Action Required 02/14/25 17:10 Temperature Temperature Source Pulse Rate Pulse Rate [Finger] 91 H Respiratory Rate 18 Blood Pressure Blood Pressure [Left Arm] 143/109 H Blood Pressure Mean Blood Pressure Mean [Left Arm] 120 Pulse Oximetry 95 Oxygen Delivery Method Room Air Sepsis Recent Fever Within 48 Hours Sepsis New/Unexplained Change in Mental Status Sepsis Action Taken by [facility] Medications Current Medication List: was personally reviewed by me Laboratory Data Attestation: I reviewed the patient's lab results. 02/14/25 16:17 02/14/25 16:17 Lab Results 02/14/25 02/14/25 02/14/25 Range/Units 16:17 16:18 18:01 WBC 10.91 H (4.8-10.8) K/ul RBC 5.18 (4.20-5.40) M/uL Hgb 15.4 (12.0-16.0) g/dl Hct 46.6 (37.0-47.0) % MCV 90.0 (80.0-100.0) fL MCH 29.7 (25.0-34.0) pg MCHC 33.0 (32.0-36.0) g/dL RDW Std Deviation 47.0 H (36.4-46.3) fL RDW Coeff of Jason 14.2 (11.5-14.5) % Plt Count 171 (130-400) K/uL MPV 12.1 (9.4-12.4) fL Immature Gran % (Auto) 0.3 % Neut % (Auto) 81.2 % Lymph % (Auto) 10.4 % [place] % (Auto) 7.3 % Eos % (Auto) 0.4 % Baso % (Auto) 0.4 % Neut # (Auto) 8.87 H (1.40-6.50) K/uL Lymph # (Auto) 1.13 L (1.20-3.40) K/uL [place] # (Auto) 0.80 H (0.11-0.59) K/uL Eos # (Auto) 0.04 (0.00-0.50) K/uL Baso # (Auto) 0.04 (0.00-0.20) K/uL Immature Gran # (Auto) 0.03 (0.01-0.20) K/uL PT 22.4 H (9.0-12.0) Seconds INR 2.2 H (0.9-1.1) APTT 37 H (21-31) Seconds PTT Ratio 1.4 Sodium 137 (136-145) mmol/L Potassium 4.3 (3.5-5.1) mmol/L Chloride 101 (98-107) mmol/L Carbon Dioxide 29 (21-32) mmol/L Anion Gap 7 (3-11) BUN 16 (6-23) mg/dl Creatinine 0.93 (0.6-1.2) mg/dl Est Cr Clr Drug Dosing Not Reportable eGFR 67.79 BUN/Creatinine Ratio 17.2 (10-20) Glucose 121 H (70-99(Fasting)) mg/dl Calcium 9.8 (8.6-10.3) mg/dl Magnesium 2.0 (1.7-2.4) mg/dl Total Bilirubin 0.7 (0.2-1.0) mg/dl AST 55 H (13-39) U/L ALT 30 (7-52) U/L Alkaline Phosphatase 120 H (34-104) U/L Troponin I High Sens 126.3 H* 125.1 H* (0-14) pg/ml Total Protein 8.3 (6.0-8.3) gm/dl Albumin 4.1 (3.4-5.0) gm/dl Globulin 4.2 H (2.5-4.0) gm/dl Albumin/Globulin Ratio 1.0 (0.9-2) Administered Medications Discontinued Medications Ioversol (Optiray 320 125ml) 119 ml IV ONCE ONE Stop: 02/14/25 17:29 Last Admin: 02/14/25 17:28 Dose: 119 ml Documented By: MELODY Imaging Data Attestation: I personally reviewed and interpreted this imaging study as follows: My Impression: 1 view chest x-ray was obtained in the emergency department. My interpretation is no free air or definite infiltrate, final report below. Radiologist's Impression: Chest X-Ray 02/14/25 16:47 Technique: A frontal view of the chest was obtained Comparison is made to the prior examination dated 11/19/2024 Findings: There are no definite pulmonary infiltrates. The heart is mildly enlarged. No pleural effusion or pneumothorax is seen. There is no definite pulmonary nodule. There is a prosthetic cardiac valve. Sternal wires are present Impression: Mild cardiomegaly Electronically signed by Mani Jacob 02-14-2025 5:[address] 02/14/25 16:47 Technique: Axial computed tomography images were obtained of the brain from the vertex to the skull base without intravenous contrast. Comparison is made to the prior CT dated 11/19/2024 Findings: There is no sign of intracranial hemorrhage. There is normal smith-white matter differentiation with no sign of acute or old infarction. No midline shift or other form of herniation is identified. There is no hydrocephalus. 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 The visualized portions of the orbits and paranasal sinuses appear unremarkable. The mastoid air cells appear clear Impression: 1. 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 Otherwise unremarkable noncontrast CT of the brain Electronically signed by Mani Jacob 02-14-2025 5:40 PM Head CTA 02/14/25 16:47 Technique: Axial computed tomography images were obtained of the brain after the administration of intravenous contrast according to the CT angiogram protocol Findings: No definite stenosis or aneurysm is seen of the anterior, middle, or posterior cerebral artery circulations. The visualized vertebral arteries and the basilar artery appear unremarkable Impression: No definite stenosis or aneurysm of the intracranial arteries Electronically signed by Mani Jacob 02-14-2025 6:28 PM Neck CTA 02/14/25 16:47 Technique: Axial computed tomography images were obtained of the neck after the administration of intravenous contrast according to the CT angiogram protocol Findings: No stenosis is seen of the common carotid arteries bilaterally. There is mild plaque in the carotid bulbs bilaterally, without stenosis. The proximal and mid internal carotid arteries are tortuous bilaterally. The remainder of the internal carotid arteries appear patent bilaterally. No stenosis of the external carotid arteries is seen There is a mild stenosis of the distal left vertebral artery. The visualized thoracic aorta appears unremarkable There is multilevel degenerative disc disease and osteoarthritis of the cervical spine. Impression: 1. No definite stenosis of the carotid arteries 2. Mild stenosis of the distal left vertebral artery Electronically signed by Mani Jacob 02-14-2025 6:33 PM Discharge Plan Visit Data Chief Complaint: Eye Problems Stated Complaint: VISION ON RIGHT EYE, BLURRY, SWEATING, WEAK ED Provider: Akshat Shin Discharge Problem: Acute CVA (cerebrovascular accident), Stroke-like symptoms, Vision problems, Elevated troponin I level Patient Disposition: Being Evaluated by Hospitalist Condition: Fair Discharge Instructions Interventions: ED Discharge Assessment Last Done: 02/14/25 22:41
[2025-02-14 16:52] LABS: Alanine Aminotransferase 30 U/L (7-52); Albumin Globulin Ratio 1.0 (0.9-2); Alkaline Phosphatase 120 U/L (34-104); Blood Urea Nitrogen 16 mg/dl (6-23); Globulin 4.2 gm/dl (2.5-4.0); Glucose 121 mg/dl (70-99(Fasting)); Total Protein 8.3 gm/dl (6.0-8.3)
[2025-02-14 17:10] LABS: Magnesium 2.0 mg/dl (1.7-2.4)
[2025-02-14] MEDS: OPTIRAY 320 125ml IV ONE (17:28)
--- NOTE | 2025-02-14 17:38 | XRay Report ---
Technique: A frontal view of the chest was obtained Comparison is made to the prior examination dated 11/19/2024 Findings: There are no definite pulmonary infiltrates. The heart is mildly enlarged. No pleural effusion or pneumothorax is seen. There is no definite pulmonary nodule. There is a prosthetic cardiac valve. Sternal wires are present Impression: Mild cardiomegaly Electronically signed by Mani Jacob 02-14-2025 5:38 PM
--- NOTE | 2025-02-14 17:43 | CT Scan Report ---
Technique: Axial computed tomography images were obtained of the brain from the vertex to the skull base without intravenous contrast. Comparison is made to the prior CT dated 11/19/2024 Findings: There is no sign of intracranial hemorrhage. There is normal smith-white matter differentiation with no sign of acute or old infarction. No midline shift or other form of herniation is identified. There is no hydrocephalus. 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 The visualized portions of the orbits and paranasal sinuses appear unremarkable. The mastoid air cells appear clear Impression: 1. 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 Otherwise unremarkable noncontrast CT of the brain Electronically signed by Mani Jacob 02-14-2025 5:40 PM
[2025-02-14 17:58] LABS: INR 2.2 (0.9-1.1); Partial Thromboplastin Time 37 Seconds (21-31); Prothrombin Time 22.4 Seconds (9.0-12.0)
--- NOTE | 2025-02-14 18:28 | CT Scan Report ---
Technique: Axial computed tomography images were obtained of the brain after the administration of intravenous contrast according to the CT angiogram protocol Findings: No definite stenosis or aneurysm is seen of the anterior, middle, or posterior cerebral artery circulations. The visualized vertebral arteries and the basilar artery appear unremarkable Impression: No definite stenosis or aneurysm of the intracranial arteries Electronically signed by Mani Jacob 02-14-2025 6:28 PM
--- NOTE | 2025-02-14 18:36 | CT Scan Report ---
Technique: Axial computed tomography images were obtained of the neck after the administration of intravenous contrast according to the CT angiogram protocol Findings: No stenosis is seen of the common carotid arteries bilaterally. There is mild plaque in the carotid bulbs bilaterally, without stenosis. The proximal and mid internal carotid arteries are tortuous bilaterally. The remainder of the internal carotid arteries appear patent bilaterally. No stenosis of the external carotid arteries is seen There is a mild stenosis of the distal left vertebral artery. The visualized thoracic aorta appears unremarkable There is multilevel degenerative disc disease and osteoarthritis of the cervical spine. Impression: 1. No definite stenosis of the carotid arteries 2. Mild stenosis of the distal left vertebral artery Electronically signed by Mani Jacob 02-14-2025 6:33 PM
--- NOTE | 2025-02-14 20:31 | History & Physical Report ---
Date of Service February 14, 2025 Assessment & Plan (1) Vision problems: (2) Stroke-like symptoms: (3) HTN (hypertension): (4) Cerebral septic emboli: (5) Atrial fibrillation, permanent: (6) Chronic anticoagulation: Plan This is a 65 year old female with a PMH of mitral valve replacement, hx of CVA, a. fib on Coumadin, HTN, hx of septic emboli/endocarditis - coming in with 9-10 days of visual issues of the R eye. Stroke Like Symptoms - has a hx of septic emboli/CVA; coming in with blurry vision/dizziness - head CT done and negative - CTA head/neck done and negative - will check Brain MRI/MRA Hx of Mitral Valve Replacement - goal INR of 2.5-3.5 - INR here is 2.2 - will give Coumadin 6mg tonight (takes 6mg on Friday and 4mg the rest of the week) A. fib - cont Coumadin - cont metoprolol History of Present Illness Chief Complaint: Visual Issues Primary Care Provider: Angi Epperson MD This is a 65 year old female with a PMH of mitral valve replacement, hx of CVA, a. fib on Coumadin, HTN, hx of septic emboli/endocarditis - coming in with 9-10 days of visual issues of the R eye. She states she's also had dizziness in this timeframe. She asked her primary care and was told to come to the ED due to hx of stroke, septic emboli and A. fib. In the ER, she states that she has R eye blurriness and balance issues. Has been going on for a month, but worse in the past 9-10 days. Had a head CT and CTA head/neck and negative for acute stroke. Allergies Allergy/AdvReac Type Severity Reaction Status Date / Time No Known Allergies Allergy Verified 01/12/25 09:25 Home Medications Medication Instructions Recorded Confirmed Type hydrocortisone 2.5 % topical cream 1 applic topical BID PRN skin 10/01/21 02/14/25 Rx irritation #28 grams acetaminophen 325 mg tablet 650 mg PO Q4H PRN headache 11/21/22 02/14/25 History compress.stocking,knee,reg,med #2 ea 04/28/23 02/07/25 Rx amoxicillin 500 mg capsule 2,000 mg PO .COMPLEX PRN dental 12/10/24 02/14/25 History appointment metoprolol succinate 50 mg 200 mg PO QAM 12/10/24 02/14/25 History tablet,extended release 24 hr furosemide 20 mg tablet 20 mg PO DAILY PRN short of breath 12/20/24 02/14/25 Rx #90 tabs warfarin 4 mg tablet See Rx Instructions .Route 01/24/25 02/14/25 Rx .COMPLEX #100 tabs enoxaparin 60 mg/0.6 mL 60 mg (0.6 mL) subcut Q12H #10 02/10/25 02/14/25 Rx subcutaneous syringe syringes peg 3350-sod sulf,[id number]-tvt See Rx Instructions PO .COMPLEX #2 02/14/25 02/14/25 Rx 178.7-7.3-0.5-1.12-0.9 gram oral mL soln (Suflave) Past Med/Surg History Problem List (Updated 02/14/25 @ 19:44 by Akshat Shin DO) Elevated troponin I level (Acute) Vision problems (Acute) Stroke-like symptoms (Acute) Cerebral septic emboli Valvular vegetation 11/2024- admitted to [facility] HTN (hypertension) Streptococcal bacteremia 11/2024 Tricuspid regurgitation Generalized weakness (Acute) Leukocytosis (Acute) Noncompliance with medications (Acute) Cardiomyopathy Atrial fibrillation, permanent Chronic GERD Chronic anticoagulation (Chronic) Medical History Heart failure with mid-range ejection fraction EF 40-45% PICC (peripherally inserted central catheter) in place History of recent hospitalization 11/19/24, admitted to [facility], per records "Acute prosthetic mitral valve endocarditis Strep gallolyticus bacteremia Septic embolization leading to embolic strokes Rapid atrial fibrillation. Rate controlled on metoprolol." Transferred to [facility] for CT surgery due to septic embolization causing emboic strokes History of transesophageal echocardiography (THUY) 11/2024 Chronic anticoagulation History of atrial fibrillation Tricuspid regurgitation hx History of stroke - 1999, still has balance and walking issues, still has some right sided weakness, burning sensation left foot from stroke - embolic strokes 11/24/24 from septic embolization per records - per discharge records 11/30/24- recommend vascular neurology follow up in 6- 8 weeks History of hypertension AGUILAR (dyspnea on exertion) Rheumatic mitral valve disease Surgical History History of mitral valve replacement with mechanical valve 2000, [place], [place]; f/u [facility] cardio S/P wisdom tooth extraction Family History Father Colorectal cancer Denies family history of Ovarian cancer Prostate cancer Myocardial infarction Breast cancer Social History Smoking Status: Never smoker Second Hand Exposure: Yes (hx many years ago); Do You Dip or Chew Tobacco: No; Hx Alcohol Use: Yes Alcohol type: wine Alcohol Intake Frequency: Monthly or Less Hx Substance Use: No Preferred Language: Latvian Communication Ability: Effective Communication Tools: IPad Visual Impairment: No Limitations Hearing Ability: Normal 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 Beliefs That Will Affect Care: None marital status: Single Current Living Situation: Family Current Living Situation Comment: lives with daughter current occupational status: unemployed and retired Feels Safe at Home: Yes Childhood Exposure to Second-Hand Smoke: No Diet: regular Dental Care, Regularly: No Physical Activity Frequency: Does not Exercise Seatbelt Use: always Sunscreen Use: Yes Assistive Devices: Glasses Review of Systems Review of Systems: Constitutional: No Weight Change, No Fever, No Chills, No Night Sweats, No Fatigue, No Malaise ENT/Mouth: No Hearing Changes, No Ear Pain, No Nasal Congestion, No Sinus Pain, No Hoarseness, No sore throat, No Rhinorrhea, No Swallowing Difficulty Eyes: No Eye Pain, No Swelling, No Redness, No Foreign Body, No Discharge, No Vision Changes Cardiovascular: No Chest Pain, No SOB, No PND, No Dyspnea on Exertion, No Orthopnea, No Claudication, No Edema, No Palpitations Respiratory: No Cough, No Sputum, No Wheezing, No Smoke Exposure, No Dyspnea Gastrointestinal: No Nausea, No Vomiting, No Diarrhea, No Constipation, No Pain, No Heartburn, No Anorexia, No Dysphagia, No Hematochezia, No Melena, No Flatulence, No Jaundice Genitourinary: No Dysmenorrhea, No DUB, No Dyspareunia, No Dysuria, No Urinary Frequency, No Hematuria, No Urinary Incontinence, No Urgency, No Flank Pain, No Urinary Flow Changes, No Hesitancy Musculoskeletal: No Arthralgias, No Myalgias, No Joint Swelling, No Joint Stiffness, No Back Pain, No Neck Pain, No Injury History Skin: No Skin Lesions, No Pruritis, No Hair Changes, No Breast/Skin Changes, No Nipple Discharge Neuro: No Weakness, No Numbness, No Paresthesias, No Loss of Consciousness, No Syncope, No Headache, No Coordination Changes, No Recent Falls - +blurriness, +dizziness Psych: No Anxiety/Panic, No Depression, No Insomnia, No Personality Changes, No Delusions, No Rumination, No SI/HI/AH/VH, No Social Issues, No Memory Changes, No Violence/Abuse Hx., No Eating Concerns Heme/Lymph: No Bruising, No Bleeding, No Transfusions History, No Lymph adenopathy Endocrine: No Polyuria, No Polydipsia, No Temperature Intolerance Physical Exam Physical Exam: VITALS: Reviewed. WEIGHT/BMI reviewed. GEN: Healthy appearing, well-developed, NAD. PSYCH: Good Judgment. AOx3. Normal memory, mood, and affect. HEENT -Head: NC/AT; -Eyes: PERRL, EOMI. No discharge or redn ess; -Ears: External ears are normal. Normal TMs. -Nose: Normal nares. -Mouth and throat: MMM. Normal gums, muc jg, palate,. Good dentition. NECK: Supple, with no masses. CV: RRR, no m/r/g. LUNGS: CTAB, no w/r/c. ABD: Soft, NT/ND, NBS, no masses or organomegaly. : N/A SKIN: Warm, well perfused. No skin rashes or abnormal lesions. MSK: No deformities, Normal gait. EXT: No clubbing, cyanosis, or edema. NEURO: Ambulating with no limitations. Normal muscle strength and tone. No focal deficits. R eye blurriness Results & Data Results & Data Vital Signs (Past 12 Hours) Vital Signs Temp Pulse Pulse Resp BP BP Pulse Ox 02/14/25 17:10 91 H 18 143/109 H 95 02/14/25 17:03 112 H 02/14/25 15:56 90 20 100 02/14/25 14:19 36.6 C 74 18 116/78 100 O2 Del Method 02/14/25 17:10 Room Air 02/14/25 17:03 02/14/25 15:56 Room Air 02/14/25 14:19 Code Status & VTE Plan VTE Prophylaxis Plan VTE Prophylaxis will be ordered: Yes PG Care Time/CCT Total # of Minutes Spent Total Time Spent with Patient: Total time spent is greater than 50% in coordination of care (as documented) at patient's floor/unit and/or counseling patient: Coding Level of Care Code 13254 INT INP/OBS CARE 3/75MIN Diagnoses Vision problems H54.7 Stroke-like symptoms R29.90 HTN (hypertension) I10 Cerebral septic emboli I76; I66.9 Atrial fibrillation, permanent I48.21 Chronic anticoagulation Z79.01
[2025-02-14 21:34] LABS: Appearance Urine Clear (Clear); Bacteria Urine Automated None Seen (None Seen); Cast Urine Automated 0-2 /lpf (0-2); Glucose Urine UA Negative (Negative); RBC Urine Automated 0-2 /hpf (0-2); WBC Urine Automated 0-5 /hpf (0-5)
[2025-02-14] MEDS ORDERED: MELATONIN 3 MG TAB PO PRN (22:41)
[2025-02-14] MEDS ORDERED: ACETAMINOPHEN 325 MG TAB PO PRN (22:41)
[2025-02-14] MEDS ORDERED: MAGNESIUM HYDROXIDE SUSP 30 ML UDC PO PRN (22:41)
[2025-02-14] MEDS ORDERED: POLYETHYLENE (MIRALAX) 17 GM PACK PO PRN (22:41)
[2025-02-14] MEDS ORDERED: ONDANSETRON INJ 2 MG/ML 2 ML VIAL IV PRN (22:41)
[2025-02-14] MEDS ORDERED: ALUMINUM/MAGNESIUM SUSP 30 ML UDC PO PRN (22:41)
--- NOTE | 2025-02-14 23:12 | Magnetic Resonance Report ---
EXAM: MR brain wo con CLINICAL HISTORY: R/o stroke TECHNIQUE: Different pulse sequences were performed in different planes without GD-DTPA injection for the brain. Images were sent through PACs for interpretation. COMPARISON: Prior CT dated 02/14/2025 and 11/19/2024. FINDINGS: Acute infarctions are seen at the right centrum semiovale regions, exhibiting bright signals on DWI and T2 WI and dark signals on ADCmap. Ischemic deep white matter changes are noted, consistent with small vessel disease. Chronic infarctions with encephalomalacia are seen in the cerebellar hemispheres more on the right side. Normal MRI appearance of the central smith matter aggregates. Normal size and configuration of the cerebral ventricles. Normal MRI appearance of different anatomical parts of the brain stem, namely the midbrain, piotr, and medulla oblongata. Normal MRI appearance of the petrous temporal bones, brainstem, vestibule cochlear nerves, and cerebellopontine angles with no definite masses. No shift of midline structures. No intracerebral or extra-axial hematomas or masses. Normal MRI appearance of orbital structures, both globes, optic nerves, optic chiasm, optic tracts, and optic radiations. The scanned paranasal sinuses are unremarkable. Incidentally noted pineal body cyst. IMPRESSION: 1. Acute infarctions are seen at the right centrum semiovale regions, exhibiting bright signals on DWI and T2 WI and dark signals on ADCmap. Strict follow-up is recommended as appropriate. 2. Imaging features consistent with the consequences of small vessel disease, e.g., hypertensive and/or diabetic vasculopathy. ([place] 1) 3. Chronic infarctions with encephalomalacia are seen in the cerebellar hemispheres more on the right side. 4. Normal aging brain. 5. Incidentally noted pineal body cyst. 6. The comparison matches the CT findings. Electronically signed by Roger Tabor 02-14-2025 11:12 PM
--- NOTE | 2025-02-15 00:37 | Magnetic Resonance Report ---
EXAM: MR angio head wo con CLINICAL HISTORY: CVA. TECHNIQUE: MR angiography of the head ([place]) was performed by the 3D TOF technique without Intravenous contrast. MPR images were obtained. Images were sent through PACs for diagnostic interpretation. 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 FINDINGS: The internal carotid arteries (ICAs), anterior cerebral arteries (ACAs) (A1 to A4), anterior communicating artery (A COM A), and middle cerebral arteries (MCAs) (M1 to M4). These show normal flow signals and form the anterior circulation. The V4 segments of the vertebral arteries form the basilar artery and posterior cerebral arteries. Each DIRECTOR CLOUD TRANSFORMATION from P1 to P4, as well as the posterior communicating arteries, form the posterior circulation and share in the formation of the [place]. The Right posterior communicating artery shows continuation as the right posterior cerebral artery. 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 The anterior and posterior circulations show atherosclerotic changes. No significant stenosis. No major occlusion aneurysms or AVM. IMPRESSION: 1. The Right posterior communicating artery shows continuation as the right posterior cerebral artery. 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 2. The anterior and posterior circulations show atherosclerotic changes. No significant stenosis. No major occlusion aneurysms or AVM. 3. The comparison matches the CT findings. Electronically signed by Roger Tabor 02-15-2025 12:36 AM
[2025-02-15] MEDS ORDERED: PHARMACIST DISCHARGE MED REC CONSULT PRN (00:51)
[2025-02-15 04:29] LABS: Hematocrit (blood only) 45.5 % (37.0-47.0); Hemoglobin 14.9 g/dl (12.0-16.0); Immature Granulocytes # (auto) 0.05 K/uL (0.01-0.20); Immature Granulocytes % (auto) 0.5 %; Mean Corpuscular Hemoglobin 29.3 pg (25.0-34.0); Mean Corpuscular Volume 89.6 fL (80.0-100.0); Platelet Count 157 K/uL (130-400); RDW Standard Deviation 47.2 fL (36.4-46.3); Red Blood Count 5.08 M/uL (4.20-5.40); White Blood Count 10.68 K/ul (4.8-10.8)
[2025-02-15 04:44] LABS: Anion Gap 6.0 (3-11); Blood Urea Nitrogen 15.0 mg/dl (6-23); Calcium 9.2 mg/dl (8.6-10.3); Carbon Dioxide 31.0 mmol/L (21-32); Chloride 101.0 mmol/L (98-107); Cholesterol 182.0 mg/dl (0-200); Creatinine Clr Calc Pharmacy 54.4 ml/min; Glucose 127.0 mg/dl (70-99(Fasting)); HDL Cholesterol 75.0 mg/dl; Magnesium 1.9 mg/dl (1.7-2.4); Potassium 3.7 mmol/L (3.5-5.1); Sodium 138.0 mmol/L (136-145); Triglycerides 97.0 mg/dl (0-150)
[2025-02-15 05:17] LABS: INR 2.4 (0.9-1.1); Prothrombin Time 24.0 Seconds (9.0-12.0)
[2025-02-15] MEDS: METOPROLOL SUCC 50MG EXT REL TAB PO SCH (07:48)
[2025-02-15] MEDS: ATORVASTATIN 40 MG TAB PO SCH (07:49)
[2025-02-15] MEDS: ASPIRIN 81 MG ECTAB PO SCH (07:49)
[2025-02-15 08:51] LABS: Hemoglobin A1C 6.3 % (4.5-5.6)
--- NOTE | 2025-02-15 09:47 | Neurology Consultation ---
Date of Consultation February 15, 2025 Assessment & Plan (1) Acute CVA (cerebrovascular accident): History of Present Illness Attending Physician: Quinn Loomis History of Present Illness S: pt this morning comfortable. mri brain noted for rt centrum semiovale ischemic stroke (no image to see as it is not available). CTA head/neck and MRA head with no LVO. pt with rt vision loss more than 10 days ago. pt with recent (november 2024) hospitalization for bacterial endocarditis. chart reviewed. Admission HPI: HPI: The patient is a 65-year-old female who presents to the emergency department for multiple complaints. The patient's been having problems with her balance but also noticing she has problems with her right eye vision. The patient states the symptoms began approximately 9 to 10 days ago. The patient denies having any headache. She denies having any trauma. She called her family doctor about the symptoms last week and was advised to come to the emergency department. The patient denies having any chest pain. She has a history of bacterial endocarditis with a valve replacement. She does take warfarin. She states that she has been compliant with her outpatient medications otherwise. . Allergies Allergy/AdvReac Type Severity Reaction Status Date / Time No Known Allergies Allergy Verified 01/12/25 09:25 Home Medications Medication Instructions Recorded Confirmed Type hydrocortisone 2.5 % topical cream 1 applic topical BID PRN skin 10/01/21 02/14/25 Rx irritation #28 grams acetaminophen 325 mg tablet 650 mg PO Q4H PRN headache 11/21/22 02/14/25 History compress.stocking,knee,reg,med #2 ea 04/28/23 02/15/25 Rx amoxicillin 500 mg capsule 2,000 mg PO .COMPLEX PRN dental 12/10/24 02/14/25 History appointment metoprolol succinate 50 mg 200 mg PO QAM 12/10/24 02/14/25 History tablet,extended release 24 hr furosemide 20 mg tablet 20 mg PO DAILY PRN short of breath 12/20/24 02/14/25 Rx #90 tabs warfarin 4 mg tablet See Rx Instructions .Route 01/24/25 02/14/25 Rx .COMPLEX #100 tabs enoxaparin 60 mg/0.6 mL 60 mg (0.6 mL) subcut Q12H #10 02/10/25 02/14/25 Rx subcutaneous syringe syringes peg 3350-sod sulf,[id number] See Rx Instructions PO .COMPLEX #2 02/14/25 02/14/25 Rx 178.7-7.3-0.5-1.12-0.9 gram oral mL soln (Suflave) Patient History Medical History Heart failure with mid-range ejection fraction EF 40-45% PICC (peripherally inserted central catheter) in place History of recent hospitalization 11/19/24, admitted to [facility], per records "Acute prosthetic mitral valve endocarditis Strep gallolyticus bacteremia Septic embolization leading to embolic strokes Rapid atrial fibrillation. Rate controlled on metoprolol." Transferred to [facility] for CT surgery due to septic embolization causing emboic strokes History of transesophageal echocardiography (THUY) 11/2024 Chronic anticoagulation History of atrial fibrillation Tricuspid regurgitation hx History of stroke - 1999, still has balance and walking issues, still has some right sided weakness, burning sensation left foot from stroke - embolic strokes 11/24/24 from septic embolization per records - per discharge records 11/30/24- recommend vascular neurology follow up in 6- 8 weeks History of hypertension AGUILAR (dyspnea on exertion) Rheumatic mitral valve disease Surgical History History of mitral valve replacement with mechanical valve 2000, [place], [place]; f/u [facility] cardio S/P wisdom tooth extraction Family History Father Colorectal cancer Denies family history of Ovarian cancer Prostate cancer Myocardial infarction Breast cancer Social History Smoking Status: Never smoker Second Hand Exposure: Yes (hx many years ago); Do You Dip or Chew Tobacco: No; Hx Alcohol Use: No Hx Substance Use: No Preferred Language: Kiswahili Communication Ability: Effective Communication Tools: IPad Visual Impairment: No Limitations Hearing Ability: Normal 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 Beliefs That Will Affect Care: None marital status: Single Current Living Situation: Family Current Living Situation Comment: lives with daughter current occupational status: unemployed and retired Feels Safe at Home: Yes Childhood Exposure to Second-Hand Smoke: No Diet: regular Dental Care, Regularly: No Physical Activity Frequency: Does not Exercise Seatbelt Use: always Sunscreen Use: Yes Assistive Devices: Glasses Review of Systems Review of Systems: All systems reviewed & are unremarkable except as noted in Subjective Constitutional: as per Subjective / HPI Eyes: as per Subjective / HPI Ear, Nose, Mouth, Throat: as per Subjective / HPI Respiratory: as per Subjective / HPI Cardiovascular: as per Subjective / HPI Gastrointestinal: as per Subjective / HPI Musculoskeletal: as per Subjective / HPI Integumentary: as per Subjective / HPI Neurologic: as per Subjective / HPI Psychiatric: as per Subjective / HPI Endocrine: as per Subjective / HPI Hematologic / Lymphatic: as per Subjective / HPI Allergy / Immunological: as per Subjective / HPI Exam (Neuro) Physical Exam: HEENT: normocephalic Neuro: Mental: AOx4, fluent speech, normal comprehension, no apraxia, no L/R confusion, no neglect CN: PERRL, Full EOM, somewhat difficult to test due to her limited yi, rt vision with diffuse vision loss t/o, able to finger count on rt eye, left eye normal vision. symmetric face, 5/5 SCM/traps. Motor: No abnormal movements, normal tone and bulk, 5/5 t/o bilaterally Coord: intact FNT b/l DTR: 3+ sym b/l, toes down b/l. Impression: 65 yo female with subacute rt vision loss more than 10 days ago in setting of atrial fib, recent bacterial endocarditis. MRI brain finding on rt side subcortical lesion does not explain her vision loss. 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 Otherwise pt clinically stable from stroke stand point. Recommendations: 2. pt already on coumadin, make sure she is therapeutic range. no clear benefit from having antiplatelet along with anticoagulation, especially pt with bacterial endocarditis. 3. THUY as planned. will defer to cardioeliazar vidal for recommendations for recent endocarditis. 4. no need for permissive HTN as her str david is more than a week old. 6. Long-term SBP goal less than 130. Avoid hypovolemia and hypotension. 8. Initiate DVT prevention therapy. 9. Avoid hypoglycemia, serum glucose goa l during hospitalization: 140-180. 10. Long-term HgA1c goal less than 7. 11. Start statin if not on it and no abs olute contraindication, long-term LDL goal less than 70. ophthalmology consult as outpt when pt discharged for her vision issue. not much to offer at this point as the stroke is more than a week ago and subacute in nature. continue medical management. call again if new question. Chart reviewed I have spent more than 50% educating patient about potential diagnosis and zelda rological evaluation and coordinating care with patient's treatment team. Total time spent (including chart review and coordination of care): 60 min (this includes chart review). Results & Data Vital Signs (Past 12 Hours) Vital Signs Temp Pulse Pulse Resp BP BP Pulse Ox 02/15/25 08:30 131 H 21 02/15/25 08:18 137 H 20 02/15/25 08:00 37.4 C 02/15/25 07:41 136/97 98 02/15/25 07:36 110 H 12 02/15/25 07:03 111 H 22 02/15/25 05:24 95 H 19 02/15/25 04:33 110 H 21 02/15/25 04:15 121 H 24 02/15/25 03:33 100 H 29 H 02/15/25 03:06 106 H 20 02/15/25 02:30 128 H 28 H 02/15/25 02:13 144/84 H 02/15/25 02:13 144/84 H 02/15/25 02:13 144/84 H 02/15/25 02:13 144/84 H 02/15/25 02:12 90 21 02/15/25 01:33 83 17 02/15/25 01:27 85 19 02/15/25 00:09 83 26 H 02/14/25 23:31 79 16 129/89 96 02/14/25 23:24 83 15 02/14/25 23:17 129/89 02/14/25 23:17 129/89 02/14/25 21:51 98 02/14/25 21:50 139/87 02/14/25 21:50 60 16 139/87 97 O2 Del Method 02/15/25 08:30 02/15/25 08:18 02/15/25 08:00 02/15/25 07:41 Room Air 02/15/25 07:36 02/15/25 07:03 02/15/25 05:24 02/15/25 04:33 02/15/25 04:15 02/15/25 03:33 02/15/25 03:06 02/15/25 02:30 02/15/25 02:13 02/15/25 02:13 02/15/25 02:13 02/15/25 02:13 02/15/25 02:12 02/15/25 01:33 02/15/25 01:27 02/15/25 00:09 02/14/25 23:31 Room Air 02/14/25 23:24 02/14/25 23:17 02/14/25 23:17 02/14/25 21:51 02/14/25 21:50 02/14/25 21:50 Room Air PG Care Time/CCT Total # of Minutes Spent Total Time Spent with Patient: Total time spent is greater than 50% in coordination of care (as documented) at patient's floor/unit and/or counseling patient: Coding Level of Care Code 07551 IN/OBS CONSULT LVL 4,60M Diagnoses Acute CVA (cerebrovascular accident) I63.9
[2025-02-15] MEDS: WARFARIN SOD 6 MG TAB PO SCH (16:36)
--- NOTE | 2025-02-15 18:21 | XCELERA ---
[id number] \\[id number]
--- NOTE | 2025-02-15 18:44 | Cardiology Consultation ---
Date of Consultation February 15, 2025 Assessment & Plan (1) Prosthetic valve endocarditis: (2) History of mitral valve replacement with mechanical valve: (3) History of stroke: (4) Stroke-like symptoms: (5) Heart failure with improved ejection fraction (HFimpEF): (6) Tricuspid regurgitation: (7) Atrial fibrillation, permanent: (8) Chronic anticoagulation: Plan ASSESSMENT/PLAN: 1. Mechanical mitral valve endocarditis: Recent diaphoresis and elevated inflammatory markers. Recommend transesophageal echo to further investigate the valve. Recommend and ordered blood cultures. Has completed initial treatment therapy in the outpatient setting but has not followed up as recommended locally and [place] [facility] [place] She has been seen by CT surgery at [facility] [place] consideration of mitral valve replacement given embolic events in November 2024. 2. Heart failure with improved EF: She appears euvolemic. She takes furosemide 20 mg daily, although it is written as needed. Low-sodium diet. SGLT2 inhibitor has not been utilized in the past as she wished to take less medications. There also has been issues with noncompliance. 3. Cardiomyopathy: LV systolic function appears normal. She had not been taking metoprolol regularly in the past and cardiomyopathy may be rate related. Now that she is taking her beta-ricky/rate controlling medical therapy on a more consistent basis, LV systolic function has improved her last few echoes. 4. 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 Managed by Coumadin clinic at [facility] in outpatient setting. 5. Stroke: Seen by neurology earlier today. Statin therapy recommended if no contraindication. Etiology felt to be cardiac embolic. Could be related to endocarditis, atrial fibrillation, mechanical mitral valve, other. 6. Anticoagulation therapy: In the outpatient setting, followed by [facility] Coumadin clinic. Maintain therapeutic anticoagulation therapy and if low, would consider use of Lovenox if no contraindications as a bridge. 7. Confusion: Her daughter reports that she has not been confused, but has had memory issues at times. 8. Tricuspid regurgitation: Nonsevere when last evaluated. 9. Atrial fibrillation: Permanent. Has had issues with compliance with beta- ricky in the past but her daughter confirms that she is taking it regularly now. Digoxin discontinued in the past. Continue anticoagulation for stroke risk reduction. Monitor CBC periodically. 10. Disposition: Cardiology will continue to follow. Possible transesophageal echo tomorrow. Patient care communicated with primary hospitalist, Dr. Loomis. Highly complex medical issues. History of Present Illness Reason for Consultation: "a fib/ stroke/ may need paris" Requesting Physician: Quinn Loomis Attending Physician: Quinn Loomis History of Present Illness Mrs. Coronado is a very pleasant 65-year-old Portuguese-speaking female with history significant for mechanical mitral valve replacement s/p mechanical MVR endocarditis (November 2024) with embolic stroke, rheumatic mitral valve disease, atrial fibrillation, and prior stroke (04/01/2000) with residual memory issues, difficulty focusing, right arm and left leg symptoms. She has had the following studies/procedures: 1. Mechanical mitral valve replacement 2000 [place], [place]. 2. Echo 11/08/2022 [facility] in [place]: LVEF 40% with moderate global hypokinesis of LV. Enlarged RV with mildly reduced systolic function. Mechanical mitral valve with trace regurgitation. Normal RVSP. 3. Holter monitor 12/20/2022-12/23/2022: Atrial fibrillation with average heart rate 107. Range 48-198. Frequent PVCs with ventricular triplets. Pauses up to 2.7 seconds. 4 patient events (shortness of breath). 3 events correlated with atrial fibrillation with RVR. 1 event was artifact with indiscernible tracing. 4. Echo 02/21/2023 [facility]: Normal LV size with mildly reduced LV systolic function. EF 45-50%. Mild global hypokinesis. Septal motion consistent with prior cardiac surgery. Mild LVH. RV appears dilated with reduced systolic function. Severe left atrial dilation. Mechanical mitral valve with acceptable transvalvular gradient/velocity. Normal RVSP. Atrial fibrillation, often with RVR. 5. Holter monitor 11/19/23-11/22/23: Atrial fibrillation with average rate 123 bpm. Range 69-213 bpm. No significant pause. Frequent PVCs with ventricular triplets. 6. Echo 12/25/23 [facility]: Normal LV size with low normal systolic function. EF 50- 55%. Septal motion consistent with prior cardiac surgery. Mild to moderate LVH. Grossly normal RV size with mildly reduced systolic function. Severe left atrial dilation. Mild AI. Mechanical mitral valve with acceptable transvalvular gradient/velocity. Normal RVSP. Rate controlled atrial fibrillation. 7. Echo 11/20/2024 [facility]: Normal LV size. EF 40-45%. Global hypokinesis. Moderately dilated RV with mildly reduced systolic function. Severe biatrial dilation. Trace AI. Mechanical mitral valve with mobile mass on ventricular surface of mitral valve. Severe TR. RVSP 50-60. 8. [facility]IS 11/22/2024 [facility]: Normal LV size. EF 60-65%. Normal wall motion. Mild LVH. Severe left and moderate right atrial dilation. Spontaneous echo contrast within left atrial appendage and left atrium. Mechanical MVR with 2 visualized vegetations (mobile and up to 1 cm in length). Mild MR. Moderate TR. Normal RVSP. 9. PARIS 12/21/2024 [facility]: LVEF 55%. Normal wall motion. Biatrial dilation. Prominent left atrial appendage with spontaneous echo contrast within the left atrium and appendage. Mechanical MVR with 2 visualized vegetations, mobile and measure up to 1 to 1.5 cm in length. Mild MR. Moderate TR. Normal RVSP. Compared to 11/22/2024 [facility], vegetation burden appears less on current study. Previous bilobed vegetation now appears singular. Official stranding supervisor was offered, however she confirmed that she wanted her daughter to help translate. She was admitted on 02/14/2025 after recommended by her PCP to go to the ER due to visual complaints, dizziness, and balance issues. There was concern given her history of endocarditis which was diagnosed in November 2024 when she was hospitalized at [facility] and then transferred [place] [facility] [place] due to cardioembolic strokes felt to be septic embolization. Bacteremia at that time was strep gallolyticus. Infectious disease was assisting in her management. [place] [facility] [place], she was seen by CT surgery. It was recommended that she had a follow-up transesophageal echo and then follow back up with CT surgery for consideration of possible redo sternotomy and mitral valve replacement, versus continued medical therapy. Unfortunately, she did not show up for her first scheduled transesophageal echo on 12/15/2024. Attempts were made to reschedule, and she was agreeable for 12/21/2024. Vegetation burden. Improved on repeat transesophageal echo and her daughter reports that antibiotic therapy was completed on 12/31/2024. Unfortunately, she did not follow up with [place] surgery [place] [facility] [place] Her daughter states that there were some family issues going on at the time and she was unable to keep the appointment. She has since rescheduled it for 03/01/2025 at [facility] [place] She also had an appointment in January in the cardiology office with OMAR SHIELDS, but canceled that as well. A couple days prior to presentation, she became acutely diaphoretic without great reason. She denies fevers or chills however. For the past month, she has had blurry vision in her right eye although she believes it improved today. She denies chest pain, shortness of breath, syncope, near syncope, palpitations, edema, or bleeding such as melena, hematochezia, or hematuria. There have been issues in the past with noncompliance, specifically metoprolol but her daughter states she is now taking metoprolol succinate 200 mg daily reg ularly. Her INR is being managed through [facility] anticoagulation clinic. Review of systems: As above. Family history: She denies premature CAD in first-degree relatives. Social history: She denies smoking or drug abuse. Occasional wine. She is although her is currently in [place] (he visits per iodically). She has 2 daughters and currently lives in [place] with her daughter, Latisha. One grandchild. Originally from [facility] and moved to [place] in May of 2021 from [place]. Latisha was present at the bedside. Allergies Allergy/AdvReac Type Severity Reaction Status Date / Time No Known Allergies Allergy Verified 01/12/25 09:25 Home Medications Medication Instructions Recorded Confirmed Type hydrocortisone 2.5 % topical cream 1 applic topical BID PRN skin 10/01/21 02/14/25 Rx irritation #28 grams acetaminophen 325 mg tablet 650 mg PO Q4H PRN headache 11/21/22 02/14/25 History compress.stocking,knee,reg,med #2 ea 04/28/23 02/15/25 Rx amoxicillin 500 mg capsule 2,000 mg PO .COMPLEX PRN dental 12/10/24 02/14/25 History appointment metoprolol succinate 50 mg 200 mg PO QAM 12/10/24 02/14/25 History tablet,extended release 24 hr furosemide 20 mg tablet 20 mg PO DAILY PRN short of breath 12/20/24 02/14/25 Rx #90 tabs warfarin 4 mg tablet See Rx Instructions .Route 01/24/25 02/14/25 Rx .COMPLEX #100 tabs enoxaparin 60 mg/0.6 mL 60 mg (0.6 mL) subcut Q12H #10 02/10/25 02/14/25 Rx subcutaneous syringe syringes peg 3350-sod [id number] See Rx Instructions PO .COMPLEX #2 02/14/25 02/14/25 Rx 178.7-7.3-0.5-1.12-0.9 gram oral mL soln (Suflave) Problem List (Updated 02/15/25 @ 23:04 by Alexsander Kilpatrick MD) Heart failure with improved ejection fraction (HFimpEF) Prosthetic valve endocarditis (Chronic) Endocarditis (Chronic) Acute CVA (cerebrovascular accident) (Acute) Elevated troponin I level (Acute) Vision problems (Acute) Stroke-like symptoms (Acute) Cerebral septic emboli Valvular vegetation 11/2024- admitted to [facility] HTN (hypertension) Streptococcal bacteremia 11/2024 Tricuspid regurgitation Generalized weakness (Acute) Leukocytosis (Acute) Noncompliance with medications (Acute) Cardiomyopathy Atrial fibrillation, permanent Chronic GERD Chronic anticoagulation (Chronic) Patient History Medical History Heart failure with mid-range ejection fraction EF 40-45% PICC (peripherally inserted central catheter) in place History of recent hospitalization 11/19/24, admitted to [facility], per records "Acute prosthetic mitral valve endocarditis Strep gallolyticus bacteremia Septic embolization leading to embolic strokes Rapid atrial fibrillation. Rate controlled on metoprolol." Transferred to [facility] for CT surgery due to septic embolization causing emboic strokes History of transesophageal echocardiography ([facility]) 11/2024 Chronic anticoagulation History of atrial fibrillation Tricuspid regurgitation hx History of stroke - 1999, still has balance and walking issues, still has some right sided weakness, burning sensation left foot from stroke - embolic strokes 11/24/24 from septic embolization per records - per discharge records 11/30/24- recommend vascular neurology follow up in 6- 8 weeks History of hypertension AGUILAR (dyspnea on exertion) Rheumatic mitral valve disease Surgical History History of mitral valve replacement with mechanical valve 2000, [place], [place]; f/u omar kilpatrick cardio S/P wisdom tooth extraction Family History Father Colorectal cancer Denies family history of Ovarian cancer Prostate cancer Myocardial infarction Breast cancer Social History Smoking Status: Never smoker Second Hand Exposure: Yes (hx many years ago); Do You Dip or Chew Tobacco: No; Hx Alcohol Use: No Hx Substance Use: No Preferred Language: Portuguese Communication Ability: Effective Communication Tools: IPad Visual Impairment: No Limitations Hearing Ability: Normal Supervisor Fur Dressing Required: Yes Beliefs That Will Affect Care: None marital status: Single Current Living Situation: Family Current Living Situation Comment: lives with daughter current occupational status: unemployed and retired Feels Safe at Home: Yes Childhood Exposure to Second-Hand Smoke: No Diet: regular Dental Care, Regularly: No Physical Activity Frequency: Does not Exercise Seatbelt Use: always Sunscreen Use: Yes Assistive Devices: None Physical Exam Physical Exam: Gen.: No acute distress. Alert and oriented x 3. HEENT: Anicteric sclera. Neck: No appreciable JVD. No appreciable hepatojugular reflux. Normal carotid upstrokes bilaterally. No bruit. Cardiac: Irregularly irregular. Normal heart rate. [place] S1. Normal S2. No murmurs, rubs, or gallops. Pulmonary: Clear to auscultation bilaterally without wheezes, rales, or rhonchi. Abdomen: Soft, nontender, nondistended, with normoactive bowel sounds. No bruits noted. Extremities: 2+ radial pulses bilaterally. 2+ posterior tibialis pulses bilaterally. No edema or cyanosis. No [place] nodes or [place] lesions noted. No splinter hemorrhages seen. Results & Data Vital Signs (Past 12 Hours) Vital Signs Temp Pulse Resp BP BP Pulse Ox O2 Del Method 02/15/25 15:43 36.5 C 120/71 02/15/25 15:09 79 20 98 Room Air 02/15/25 15:00 91 H 21 02/15/25 11:19 37.3 C 02/15/25 11:06 96 H 19 97 Room Air 02/15/25 11:06 115/69 02/15/25 11:06 115/69 02/15/25 11:00 83 21 02/15/25 10:39 82 21 02/15/25 10:00 85 20 02/15/25 09:30 98 H 19 02/15/25 09:00 79 20 02/15/25 08:30 131 H 21 02/15/25 08:18 137 H 20 02/15/25 08:00 37.4 C 02/15/25 07:41 136/97 98 Room Air 02/15/25 07:36 110 H 12 02/15/25 07:03 111 H 22 Laboratory Results Laboratory Results - last 24 hr 02/14/25 02/15/25 02/15/25 23:12 03:56 20:43 WBC 10.68 RBC 5.08 Hgb 14.9 Hct 45.5 MCV 89.6 MCH 29.3 MCHC 32.7 RDW Std Deviation 47.2 H RDW Coeff of Jason 14.5 Plt Count 157 MPV 12.5 H Immature Gran % (Auto) 0.5 Neut % (Auto) 74.5 Lymph % (Auto) 12.8 [place] % (Auto) 11.0 Eos % (Auto) 0.7 Baso % (Auto) 0.5 Neut # (Auto) 7.96 H Lymph # (Auto) 1.37 [place] # (Auto) 1.17 H Eos # (Auto) 0.08 Baso # (Auto) 0.05 Immature Gran # (Auto) 0.05 ESR 39 H PT 24.0 H INR 2.4 H Sodium 138 Potassium 3.7 Chloride 101 Carbon Dioxide 31 Anion Gap 6 BUN 15 Creatinine 0.98 Est Cr Clr Drug Dosing 54.4 eGFR 63.66 BUN/Creatinine Ratio 15.3 Glucose 127 H Estimat Average Glucose 134 Hemoglobin A1c 6.3 H Calcium 9.2 Magnesium 1.9 C-Reactive Protein 6.40 H Triglycerides 97 Cholesterol 182 LDL Cholesterol, Calc 88 VLDL Cholesterol, Calc 19 HDL Cholesterol 75 Cholesterol/HDL Ratio 2.4 Warfarin Pending Diagnostic Findings History and physical report reviewed. Discharge summary report reviewed. Outside CT surgery note reviewed. MRI brain 02/14/2025: Acute infarcts right centrum semiovale regions. Chronic infarctions with encephalomalacia in the cerebellar hemispheres, more on the right side. CTA neck 02/14/2025: No definite stenosis of the carotids. Head CTA 02/14/2025: No definite stenosis or aneurysm of the intracranial arteries. Chest x-ray 02/14/2025: Mild cardiomegaly. Transesophageal echo and echo reports reviewed as summarized in HPI. Telemetry personally reviewed: Atrial fibrillation, with normal heart rate this evening when she was evaluated. Labs reviewed and notable for high-sensitivity troponin peaking at 167, normal potassium, normal renal function, mildly elevated AST, normal blood counts. CRP elevated at 6.4 (was 7.4 on 11/20/2024). Elevated ESR at 39 (was 38 on 11/20/2024). ECG personally reviewed 02/14/2025: Atrial fibrillation with PVCs versus aberrantly conducted complex. 105 bpm. Medications Administered Current Inpatient Medications Acetaminophen (Acetaminophen 325 Mg Tab) 650 mg PO Q4H PRN PRN Reason: Pain or Fever Stop: 03/16/25 22:40 Al Hydrox/Mg Hydrox/Simethicone (Aluminum/Magnesium Susp 30 Ml Udc) 15 ml PO Q4H PRN PRN Reason: Dyspepsia Stop: 03/16/25 22:40 Aspirin (Aspirin 81 Mg Ectab) 81 mg PO [facility] Stop: 03/17/25 08:59 Last Admin: 02/15/25 07:49 Dose: 81 mg Atorvastatin Calcium ([facility] 40 Mg Tab) [facility] Stop: 03/17/25 08:59 Last Admin: 02/15/25 07:49 Dose: 40 mg Magnesium Hydroxide (Magnesium Hydroxide Susp 30 Ml Udc) 30 ml PO Q12H PRN PRN Reason: Constipation Stop: 03/16/25 22:40 Melatonin (Melatonin 3 Mg Tab) 3 mg PO HS PRN PRN Reason: Sleep Stop: 03/16/25 22:40 Metoprolol Succinate (Metoprolol Succ 50mg Ext Rel Tab) [facility] Stop: 03/17/25 08:59 Last Admin: 02/15/25 07:48 Dose: 200 mg Miscellaneous Information (Pharmacist Discharge Med Rec Consult) 1 each N/A UD PRN PRN Reason: Consult Stop: 03/17/25 00:50 Ondansetron HCl (Ondansetron Inj 2 Mg/Ml 2 Ml Vial) 4 mg IV Q6H PRN PRN Reason: Nausea Stop: 03/16/25 22:40 Polyethylene Glycol (Polyethylene (Miralax) 17 Gm Pack) 17 gm PO DAILY PRN PRN Reason: Constipation Stop: 03/16/25 22:40 Warfarin Sodium (Warfarin Sod 6 Mg Tab) 6 mg PO DAILY@1600 TREESA Stop: 03/17/25 15:59 Last Admin: 02/15/25 16:36 Dose: 6 mg PG Care Time/CCT Total # of Minutes Spent Total Time Spent with Patient: Total time spent is greater than 50% in coordination of care (as documented) at patient's floor/unit and/or counseling patient: Coding Level of Care Code 03390 INT INP/OBS CARE 3/75MIN Diagnoses Prosthetic valve endocarditis T82.6XXA; I33.0 History of mitral valve replacement with mechanical valve Z95.2 History of stroke Z86.73 Stroke-like symptoms R29.90 Heart failure with improved ejection fraction (HFimpEF) I50.20 Tricuspid regurgitation I07.1 Atrial fibrillation, permanent I48.21 Chronic anticoagulation Z79.01
--- NOTE | 2025-02-15 22:50 | Hospitalist Progress Note ---
Date of Service February 15, 2025 Assessment & Plan (1) Vision problems: (2) Stroke-like symptoms: (3) HTN (hypertension): (4) Cerebral septic emboli: (5) Atrial fibrillation, permanent: (6) Chronic anticoagulation: Plan This is a 65 year old female with a PMH of mitral valve replacement, hx of CVA, a. fib on Coumadin, HTN, hx of septic emboli/endocarditis - coming in with 9-10 days of visual issues of the R eye. Stroke Like Symptoms - has a hx of septic emboli/CVA; came in with blurry vision/dizziness - head CT done and negative - CTA head/neck done and negative - Brain MRI/MRA: confirmed acute stroke, though unsure if this cuased the blurry vision as patient reports the blurry vision started one month ago. Her new symptoms was the dizziness. Plan for THUY tomorrow. This could also be from her INR not being therapeutic. Hx of Mitral Valve Replacement - goal INR of 2.5-3.5 - INR here is 2.2 - will give Coumadin 6mg daily (takes 6mg on Friday and 4mg the rest of the week) A. fib - cont Coumadin - cont metoprolol Admission and Anticipated Discharge Date Admission Date: February 14, 2025 Subjective Patient reports no new symptoms. Physical Exam Physical Exam: Gen.: No acute distress. Alert and oriented x 3. HEENT: Anicteric sclera. Neck: No appreciable JVD. No appreciable hepatojugular reflux. Normal carotid upstrokes bilaterally. No bruit. Cardiac: Irregularly irregular. Normal heart rate. [place] S1. Normal S2. No murmurs, rubs, or gallops. Pulmonary: Clear to auscultation bilaterally without wheezes, rales, or rhonchi. Abdomen: Soft, nontender, nondistended, with normoactive bowel sounds. No bruits noted. Results & Data Results & Data Vital Signs (Past 12 Hours) Vital Signs Temp Pulse Resp BP BP Pulse Ox O2 Del Method 02/15/25 15:43 36.5 C 120/71 02/15/25 15:09 79 20 98 Room Air 02/15/25 15:00 91 H 21 02/15/25 11:19 37.3 C 02/15/25 11:06 96 H 19 97 Room Air 02/15/25 11:06 115/69 02/15/25 11:06 11502/15/25 11:00 83 21 PG Care Time/CCT Total # of Minutes Spent Total Time Spent with Patient: Total time spent is greater than 50% in coordination of care (as documented) at patient's floor/unit and/or counseling patient: Coding Level of Care Code 31764 SUB INP/OBS CARE 3/50MIN Diagnoses Vision problems H54.7 Stroke-like symptoms R29.90 HTN (hypertension) I10 Cerebral septic emboli I76; I66.9 Atrial fibrillation, permanent I48.21 Chronic anticoagulation Z79.01
[2025-02-16 04:53] LABS: Hematocrit (blood only) 43.1 % (37.0-47.0); Hemoglobin 14.6 g/dl (12.0-16.0); Mean Corpuscular Hemoglobin 30.1 pg (25.0-34.0); Mean Corpuscular Volume 88.9 fL (80.0-100.0); Platelet Count 155 K/uL (130-400); RDW Standard Deviation 46.0 fL (36.4-46.3); Red Blood Count 4.85 M/uL (4.20-5.40); White Blood Count 12.95 K/ul (4.8-10.8)
[2025-02-16 05:12] LABS: Anion Gap 5.0 (3-11); Blood Urea Nitrogen 14.0 mg/dl (6-23); Calcium 9.1 mg/dl (8.6-10.3); Carbon Dioxide 29.0 mmol/L (21-32); Chloride 101.0 mmol/L (98-107); Creatinine Clr Calc Pharmacy 59.9 ml/min; Glucose 120.0 mg/dl (70-99(Fasting)); Potassium 4.0 mmol/L (3.5-5.1); Sodium 135.0 mmol/L (136-145)
[2025-02-16 05:22] LABS: INR 2.2 (0.9-1.1); Prothrombin Time 22.2 Seconds (9.0-12.0)
--- NOTE | 2025-02-16 07:04 | Anesthesiology Consultation ---
Date of Service February 16, 2025 Assessment & Plan (1) Encounter for pre-operative examination: Chart Review Chart Review: Acceptable Risk for Surgery History Height/Weight Height: 5 ft 3 in Weight: 74 kg Allergies Allergy/AdvReac Type Severity Reaction Status Date / Time No Known Allergies Allergy Verified 01/12/25 09:25 Medications Home Medications Medication Instructions Recorded Confirmed Last Taken hydrocortisone 2.5 % topical cream 1 applic topical BID PRN skin 10/01/21 02/14/25 Unknown irritation #28 grams acetaminophen 325 mg tablet 650 mg PO Q4H PRN headache 11/21/22 02/14/25 Unknown compress.stocking,knee,reg,med #2 ea 04/28/23 02/15/25 Unknown amoxicillin 500 mg capsule 2,000 mg PO .COMPLEX PRN dental 12/10/24 02/14/25 Unknown appointment metoprolol succinate 50 mg 200 mg PO QAM 12/10/24 02/14/25 Unknown tablet,extended release 24 hr furosemide 20 mg tablet 20 mg PO DAILY PRN short of breath 12/20/24 02/14/25 Unknown #90 tabs warfarin 4 mg tablet See Rx Instructions .Route 01/24/25 02/14/25 02/13/25 .COMPLEX #100 tabs 6 mg enoxaparin 60 mg/0.6 mL 60 mg (0.6 mL) subcut Q12H #10 02/10/25 02/14/25 Unknown subcutaneous syringe syringes peg [id number] [id number] See Rx Instructions PO .COMPLEX #2 02/14/25 02/14/25 Unknown 178.7-7.3-0.5-1.12-0.9 gram oral mL soln (Suflave) Active Medications Generic Name Dose Route Start Last Admin Trade Name Freq PRN Reason Stop Dose Admin Aspirin 81 mg 02/15/25 09:00 02/15/25 07:49 Aspirin 81 Mg Ectab PO 03/17/25 08:59 81 mg QAM TERESA Administration Atorvastatin Calcium 40 mg 02/15/25 09:00 02/15/25 07:49 Atorvastatin 40 Mg Tab PO 03/17/25 08:59 40 mg QAM TERESA Administration Metoprolol Succinate 200 mg 02/15/25 09:00 02/15/25 07:48 Metoprolol Succ 50mg Ext Rel Tab PO 03/17/25 08:59 200 mg QAM TERESA Administration Warfarin Sodium 6 mg 02/15/25 16:00 02/15/25 16:36 Warfarin Sod 6 Mg Tab PO 03/17/25 15:59 6 mg DAILY@1600 TERESA Administration Past Medical History Medical History (Updated 02/16/25 @ 07:04 by Amish Hinson MD) Cerebral septic emboli Prosthetic valve endocarditis Heart failure with mid-range ejection fraction EF 40-45% PICC (peripherally inserted central catheter) in place History of recent hospitalization 11/19/24, admitted to [facility], per records "Acute prosthetic mitral valve endocarditis Strep gallolyticus bacteremia Septic embolization leading to embolic strokes Rapid atrial fibrillation. Rate controlled on metoprolol." Transferred to [facility] for [facility] surgery due to septic embolization causing emboic strokes History of transesophageal echocardiography (THUY) 11/2024 Chronic anticoagulation History of atrial fibrillation Tricuspid regurgitation hx History of stroke - 1999, still has balance and walking issues, still has some right sided weakness, burning sensation left foot from stroke - embolic strokes 11/24/24 from septic embolization per records - per discharge records 11/30/24- recommend vascular neurology follow up in 6- 8 weeks History of hypertension AGUILAR (dyspnea on exertion) Rheumatic mitral valve disease Past Family History Family History Father Colorectal cancer Denies family history of Ovarian cancer Prostate cancer Myocardial infarction Breast cancer Past Surgical History Surgical History History of mitral valve replacement with mechanical valve 2000, [place], [place]; f/u omar kilpatirck cardio S/P wisdom tooth extraction Social History Smoking Status: Never smoker Do You Dip or Chew Tobacco: No Hx Alcohol Use: No Alcohol type: wine alcohol intake frequency: holidays/special occasions only Hx Substance Use: No substance use type: does not use Physical Exam Vital Signs Last Vital Signs Temp 36.6 C 02/16/25 02:40 Pulse 98 H 02/16/25 02:40 Resp 16 02/16/25 02:40 BP 120/70 02/16/25 02:40 Pulse Ox 95 02/16/25 02:40 O2 Del Method Room Air 02/16/25 02:40 Testing Laboratory Results 02/16/25 04:27 02/16/25 04:27 PT 22.2 Seconds (9.0-12.0) H 02/16/25 04:27 INR 2.2 (0.9-1.1) H 02/16/25 04:27 APTT 37 Seconds (21-31) H 02/14/25 16:18 Hemoglobin A1c 6.3 % (4.5-5.6) H 02/15/25 03:56 Urine Color Yellow 02/14/25 21:19 Urine Appearance Clear (Clear) 02/14/25 21:19 Urine pH 6.0 (4.5-7.5) 02/14/25 21:19 Ur Specific [place] > 1.045 (1.000-1.030) H 02/14/25 21:19 Urine Protein Trace (Negative) H 02/14/25 21:19 Urine Glucose (UA) Negative (Negative) 02/14/25 21:19 Urine Ketones Negative (Negative) 02/14/25 21:19 Urine Nitrite Negative (Negative) 02/14/25 21:19 Ur Leukocyte Esterase Negative (Negative) 02/14/25 21:19 Urine WBC (Auto) 0-5 /hpf (0-5) 02/14/25 21:19 Urine RBC (Auto) 0-2 /hpf (0-2) 02/14/25 21:19 U Hyaline Cast (Auto) 0-2 /lpf (0-2) 02/14/25 21:19 U Epithel Cells (Auto) 3-5 /hpf (0-2) H 02/14/25 21:19 Urine Bacteria (Auto) None Seen (None Seen) 02/14/25 21:19 Electrocardiogram Date: 02/14/25 Findings: + NSST changes and + AFIB @ (105) Echocardiogram Date: 02/15/25 EF: 50-55% Other Findings: + atrial enlargement mechanical mitral valve replacement with known prior vegetation now reduced
--- NOTE | 2025-02-16 10:37 | Hospitalist Progress Note ---
Date of Service February 16, 2025 Assessment & Plan (1) Vision problems: (2) Stroke-like symptoms: (3) HTN (hypertension): (4) Cerebral septic emboli: (5) Atrial fibrillation, permanent: (6) Chronic anticoagulation: Plan This is a 65 year old female with a PMH of mitral valve replacement, hx of CVA, a. fib on Coumadin, HTN, hx of septic emboli/endocarditis - coming in with 9-10 days of visual issues of the R eye. Stroke Like Symptoms brain MRI found acute infarct in the right centrum semiovale region. also found chronic infarct in the cerebellar hemisphere more on the right side - has a hx of septic emboli/CVA; came in with blurry vision/dizziness - head CT done and negative - CTA head/neck done and negative Her new symptoms was the dizziness. subtherapeutic INR she need a close f/u with cardiology and PCP Hx of Mitral Valve Replacement - goal INR of 2.5-3.5 - INR here is 2.2 - will give Coumadin 6mg daily (takes 6mg on Friday and 4mg the rest of the week) A. fib - cont Coumadin - cont metoprolol Admission and Anticipated Discharge Date Admission Date: February 14, 2025 Subjective Patient reports no new symptoms. await THUY today her INR was sub-therapeutics Physical Exam Physical Exam: VITALS: Reviewed. WEIGHT/BMI reviewed. GEN: Healthy appearing, well-developed, NAD. PSYCH: Good Judgment. AOx3. Normal memory, mood, and affect. HEENT -Head: NC/AT; -Nose: Normal nares. -Mouth and throat: MMM. Normal gums, muc jg, palate,. Good dentition. NECK: Supple, with no masses. CV: RRR, no m/r/g. + for mechanical heart sound. LUNGS: CTAB, no w/r/c. ABD: Soft, NT/ND, NBS, no masses or organomegaly. : N/A MSK: No deformities, Normal gait. EXT: No clubbing, cyanosis, or edema. NEURO: Ambulating with no limitations. Normal muscle strength and tone. No focal deficits. Results & Data Results & Data Vital Signs (Past 12 Hours) Vital Signs Temp Pulse Pulse Resp BP BP Pulse Ox 02/16/25 08:45 123 H 14 103/74 96 02/16/25 08:00 99 H 23 02/16/25 07:30 90 20 02/16/25 07:03 78 18 02/16/25 06:30 81 20 02/16/25 06:00 85 10 L 02/16/25 05:45 89 13 02/16/25 05:06 98 H 15 02/16/25 04:33 102 H 13 02/16/25 04:03 123 H 22 02/16/25 03:30 117 H 19 02/16/25 02:48 115 H 20 02/16/25 02:40 36.6 C 98 H 16 120/70 95 02/16/25 01:30 90 13 02/16/25 01:09 85 21 02/16/25 00:42 79 2 L 02/16/25 00:21 114 H 22 02/15/25 23:36 89 22 02/15/25 23:06 85 16 02/15/25 22:36 81 20 O2 Del Method 02/16/25 08:45 02/16/25 08:00 02/16/25 07:30 02/16/25 07:03 02/16/25 06:30 02/16/25 06:00 02/16/25 05:45 02/16/25 05:06 02/16/25 04:33 02/16/25 04:03 02/16/25 03:30 02/16/25 02:48 02/16/25 02:40 Room Air 02/16/25 01:30 02/16/25 01:09 02/16/25 00:42 02/16/25 00:21 02/15/25 23:36 02/15/25 23:06 02/15/25 22:36 Laboratory Results Laboratory Results - last 72 hr 02/14/25 02/14/25 02/14/25 16:17 16:18 18:01 WBC 10.91 H RBC 5.18 Hgb 15.4 Hct 46.6 MCV 90.0 MCH 29.7 MCHC 33.0 RDW Std Deviation 47.0 H RDW Coeff of Jason 14.2 Plt Count 171 MPV 12.1 Immature Gran % (Auto) 0.3 Neut % (Auto) 81.2 Lymph % (Auto) 10.4 [place] % (Auto) 7.3 Eos % (Auto) 0.4 Baso % (Auto) 0.4 Neut # (Auto) 8.87 H Lymph # (Auto) 1.13 L [place] # (Auto) 0.80 H Eos # (Auto) 0.04 Baso # (Auto) 0.04 Immature Gran # (Auto) 0.03 ESR PT 22.4 H INR 2.2 H APTT 37 H PTT Ratio 1.4 Sodium 137 Potassium 4.3 Chloride 101 Carbon Dioxide 29 Anion Gap 7 BUN 16 Creatinine 0.93 Est Cr Clr Drug Dosing Not Reportable eGFR 67.79 BUN/Creatinine Ratio 17.2 Glucose 121 H Estimat Average Glucose Hemoglobin A1c Calcium 9.8 Magnesium 2.0 Total Bilirubin 0.7 AST 55 H ALT 30 Alkaline Phosphatase 120 H Troponin I High Sens 126.3 H* 125.1 H* C-Reactive Protein Total Protein 8.3 Albumin 4.1 Globulin 4.2 H Albumin/Globulin Ratio 1.0 Triglycerides Cholesterol LDL Cholesterol, Calc VLDL Cholesterol, Calc HDL Cholesterol Cholesterol/HDL Ratio Urine Color Urine Appearance Urine pH Ur Specific [place] Urine Protein Urine Glucose (UA) Urine Ketones Urine Blood Urine Nitrite Urine Bilirubin Urine Urobilinogen Ur Leukocyte Esterase Urine WBC (Auto) Urine RBC (Auto) U Hyaline Cast (Auto) U Epithel Cells (Auto) Urine Bacteria (Auto) Urine Comment 02/14/25 02/15/25 02/15/25 21:19 03:56 20:43 WBC 10.68 RBC 5.08 Hgb 14.9 Hct 45.5 MCV 89.6 MCH 29.3 MCHC 32.7 RDW Std Deviation 47.2 H RDW Coeff of [place] 14.5 Plt Count 157 MPV 12.5 H Immature Gran % (Auto) 0.5 Neut % (Auto) 74.5 Lymph % (Auto) 12.8 [place] % (Auto) 11.0 Eos % (Auto) 0.7 Baso % (Auto) 0.5 Neut # (Auto) 7.96 H Lymph # (Auto) 1.37 [place] # (Auto) 1.17 H Eos # (Auto) 0.08 Baso # (Auto) 0.05 Immature Gran # (Auto) 0.05 ESR 39 H PT 24.0 H INR 2.4 H APTT PTT Ratio Sodium 138 Potassium 3.7 Chloride 101 Carbon Dioxide 31 Anion Gap 6 BUN 15 Creatinine 0.98 Est Cr Clr Drug Dosing 54.4 eGFR 63.66 BUN/Creatinine Ratio 15.3 Glucose 127 H Estimat Average Glucose 134 Hemoglobin A1c 6.3 H Calcium 9.2 Magnesium 1.9 Total Bilirubin AST ALT Alkaline Phosphatase Troponin I High Sens C-Reactive Protein 6.40 H Total Protein Albumin Globulin Albumin/Globulin Ratio Triglycerides 97 Cholesterol 182 LDL Cholesterol, Calc 88 VLDL Cholesterol, Calc 19 HDL Cholesterol 75 Cholesterol/HDL Ratio 2.4 Urine Color Yellow Urine Appearance Clear Urine pH 6.0 Ur Specific [place] > 1.045 H Urine Protein Trace H Urine Glucose (UA) Negative Urine Ketones Negative Urine Blood Negative Urine Nitrite Negative Urine Bilirubin Negative Urine Urobilinogen Negative Ur Leukocyte Esterase Negative Urine WBC (Auto) 0-5 Urine RBC (Auto) 0-2 U Hyaline Cast (Auto) 0-2 U Epithel Cells (Auto) 3-5 H Urine Bacteria (Auto) None Seen Urine Comment 02/16/25 04:27 WBC 12.95 H RBC 4.85 Hgb 14.6 Hct 43.1 MCV 88.9 MCH 30.1 MCHC 33.9 RDW Std Deviation 46.0 RDW Coeff of [place] 14.3 Plt Count 155 MPV 12.4 Immature Gran % (Auto) Neut % (Auto) Lymph % (Auto) [place] % (Auto) Eos % (Auto) Baso % (Auto) Neut # (Auto) Lymph # (Auto) [place] # (Auto) Eos # (Auto) Baso # (Auto) Immature Gran # (Auto) ESR PT 22.2 H INR 2.2 H APTT PTT Ratio Sodium 135 L Potassium 4.0 Chloride 101 Carbon Dioxide 29 Anion Gap 5 BUN 14 Creatinine 0.89 Est Cr Clr Drug Dosing 59.9 eGFR 71.46 BUN/Creatinine Ratio 15.7 Glucose 120 H Estimat Average Glucose Hemoglobin A1c Calcium 9.1 Magnesium Total Bilirubin AST ALT Alkaline Phosphatase Troponin I High Sens C-Reactive Protein 8.10 H Total Protein Albumin Globulin Albumin/Globulin Ratio Triglycerides Cholesterol LDL Cholesterol, Calc VLDL Cholesterol, Calc HDL Cholesterol Cholesterol/HDL Ratio Urine Color Urine Appearance Urine pH Ur Specific [place] Urine Protein Urine Glucose (UA) Urine Ketones Urine Blood Urine Nitrite Urine Bilirubin Urine Urobilinogen Ur Leukocyte Esterase Urine WBC (Auto) Urine RBC (Auto) U Hyaline Cast (Auto) U Epithel Cells (Auto) Urine Bacteria (Auto) Urine Comment Medications Administered Current Inpatient Medications Acetaminophen (Acetaminophen 325 Mg Tab) 650 mg PO Q4H PRN PRN Reason: Pain or Fever Stop: 03/16/25 22:40 Al Hydrox/Mg Hydrox/Simethicone (Aluminum/Magnesium Susp 30 Ml Udc) 15 ml PO Q4H PRN PRN Reason: Dyspepsia Stop: 03/16/25 22:40 Aspirin (Aspirin 81 Mg Ectab) 81 mg PO [facility] Stop: 03/17/25 08:59 Last Admin: 02/16/25 09:36 Dose: 81 mg Atorvastatin Calcium (Atorvastatin 40 Mg Tab) 40 mg PO [facility] Stop: 03/17/25 08:59 Last Admin: 02/16/25 09:36 Dose: 40 mg Magnesium Hydroxide (Magnesium Hydroxide Susp 30 Ml Udc) 30 ml PO Q12H PRN PRN Reason: Constipation Stop: 03/16/25 22:40 Melatonin (Melatonin 3 Mg Tab) 3 mg PO HS PRN PRN Reason: Sleep Stop: 03/16/25 22:40 Metoprolol Succinate (Metoprolol Succ 50mg Ext Rel Tab) 200 mg PO [facility] Stop: 03/17/25 08:59 Last Admin: 02/16/25 09:35 Dose: 200 mg Miscellaneous Information (Pharmacist Discharge Med Rec Consult) 1 each N/A UD PRN PRN Reason: Consult Stop: 03/17/25 00:50 Ondansetron HCl (Ondansetron Inj 2 Mg/Ml 2 Ml Vial) 4 mg IV Q6H PRN PRN Reason: Nausea Stop: 03/16/25 22:40 Polyethylene Glycol (Polyethylene (Miralax) 17 Gm Pack) 17 gm PO DAILY PRN PRN Reason: Constipation Stop: 03/16/25 22:40 Warfarin Sodium (Warfarin Sod 6 Mg Tab) 6 mg PO DAILY@1600 [facility] Stop: 03/17/25 15:59 Last Admin: 02/15/25 16:36 Dose: 6 mg PG Care Time/CCT Total # of Minutes Spent Total Time Spent with Patient: Total time spent is greater than 50% in coordination of care (as documented) at patient's floor/unit and/or counseling patient: Coding Level of Care Code 64815 SUB INP/OBS CARE 2/35MIN Diagnoses Vision problems H54.7 Stroke-like symptoms R29.90 HTN (hypertension) I10 Cerebral septic emboli I76; I66.9 Atrial fibrillation, permanent I48.21 Chronic anticoagulation Z79.01 Time Spent (min) 35
--- NOTE | 2025-02-16 11:51 | Pharmacy Report ---
- Date of Service February 16, 2025 - Pharmacy CVA/TIA Medication Review Medications to Prevent Stroke handout has been added to the patients discharge packet. Antiplatelet(s) * aspirin 81mg PO daily Cholesterol * High intensity statin: atorvastatin 40 mg daily DVT Prophylaxis * n/a - therapeutic anticoag Therapeutic Anticoagulation * Hx Afib/Aflutter noted, (+) mitral valve replacement, and patient is currently receiving warfarin Type 2 Diabetes * Patient does not have T2DM
[2025-02-16] MEDS ORDERED: PROPOFOL IV EMULSION 10 MG/ML 20 ML VIAL IV ONE (12:28)
[2025-02-16] MEDS ORDERED: LIDOCAINE 2% 2 ML VIAL/AMP(20MG/ML) INFIL ONE (12:28)
[2025-02-16] MEDS ORDERED: ATROPINE SULFATE 0.1 MG/ML 10ML SYR IV PRN (13:09)
--- NOTE | 2025-02-16 13:54 | Anesthesiology Progress Note ---
Date of Service February 16, 2025 Anesthesia Post Procedure Vital Signs Vital Signs: Temp Pulse Pulse Resp BP BP Pulse Ox 02/16/25 13:50 106 H 18 106/69 99 02/16/25 12:49 111 H 18 104/72 97 02/16/25 08:45 123 H 14 103/74 96 02/16/25 08:00 99 H 23 02/16/25 07:30 90 20 02/16/25 07:03 78 18 02/16/25 06:30 81 20 02/16/25 06:00 85 10 L 02/16/25 05:45 89 13 02/16/25 05:06 98 H 15 02/16/25 04:33 102 H 13 02/16/25 04:03 123 H 22 02/16/25 03:30 117 H 19 02/16/25 02:48 115 H 20 02/16/25 02:40 36.6 C 98 H 16 120/70 95 02/16/25 01:30 90 13 02/16/25 01:09 85 21 02/16/25 00:42 79 2 L 02/16/25 00:21 114 H 22 02/15/25 23:36 89 22 02/15/25 23:06 85 16 02/15/25 22:36 81 20 02/15/25 22:09 79 23 02/15/25 21:36 79 16 02/15/25 21:00 85 23 02/15/25 21:00 36.6 C 94 H 16 119/74 100 02/15/25 20:42 88 13 02/15/25 20:03 78 16 02/15/25 19:54 101 H 9 L 02/15/25 19:54 119/74 02/15/25 19:30 102 H 8 L 02/15/25 19:27 113 H 24 02/15/25 18:30 99 H 18 02/15/25 18:21 84 11 L 02/15/25 17:30 91 H 21 02/15/25 17:00 105 H 17 02/15/25 16:30 114 H 16 02/15/25 16:06 88 17 02/15/25 15:43 36.5 C 120/71 02/15/25 15:41 120/71 02/15/25 15:09 79 20 98 02/15/25 15:00 91 H 21 O2 Del Method 07/30/25 13:50 Room Air 02/16/25 12:49 Room Air 02/16/25 08:45 02/16/25 08:00 02/16/25 07:30 02/16/25 07:03 02/16/25 06:30 02/16/25 06:00 02/16/25 05:45 02/16/25 05:06 02/16/25 04:33 02/16/25 04:03 02/16/25 03:30 02/16/25 02:48 02/16/25 02:40 Room Air 02/16/25 01:30 02/16/25 01:09 02/16/25 00:42 02/16/25 00:21 02/15/25 23:36 02/15/25 23:06 02/15/25 22:36 02/15/25 22:09 02/15/25 21:36 02/15/25 21:00 02/15/25 21:00 Room Air 02/15/25 20:42 02/15/25 20:03 02/15/25 19:54 02/15/25 19:54 02/15/25 19:30 02/15/25 19:27 02/15/25 18:30 02/15/25 18:21 02/15/25 17:30 02/15/25 17:00 02/15/25 16:30 02/15/25 16:06 02/15/25 15:43 02/15/25 15:41 02/15/25 15:09 Room Air 02/15/25 15:00 Transfer of Care Handoff Completed per policy Notes Mental Status: alert / awake / arousable Patient Amnestic to Procedure: Yes Nausea / Vomiting: adequately controlled Pain: adequately controlled Airway Patency, RR, SpO2: stable & adequate BP & HR: stable & adequate Hydration State: stable & adequate Anesthetic Complications: no major complications apparent
--- NOTE | 2025-02-16 13:59 | Post Operative Brief Note ---
Cardiology Brief Post Op Date of Surgery February 16, 2025 Pre & Post Diagnosis Operation Date: 02/16/25 10:00 <No data on this case meets the specified criteria> Procedure THUY Shade Maker Alexsander Birch MD [employer] Apprentice Sloss Estimated Blood Loss 0 Findings See Below left atrial appendage thrombus. see full report after formal review.
[2025-02-16] MEDS: BENZOCAINE/TETRACAIN/BUTAM 50 APPLN/5 GM CAN EXT ONE (19:49)
--- NOTE | 2025-02-16 22:20 | Cardiology Progress Note ---
Date of Service February 16, 2025 Assessment & Plan (1) Prosthetic valve endocarditis: (2) History of mitral valve replacement with mechanical valve: (3) History of stroke: (4) Stroke-like symptoms: (5) Heart failure with improved ejection fraction (HFimpEF): (6) Tricuspid regurgitation: (7) Atrial fibrillation, permanent: (8) Chronic anticoagulation: (9) Thrombus of left atrial appendage: Plan ASSESSMENT/PLAN: 1. Mechanical mitral valve endocarditis: Blood cultures have been negative thus far. No fever. Has completed initial treatment therapy in the outpatient setting but has not followed up as recommended locally or at [facility]. She has been seen by CT surgery at [facility] for consideration of mitral valve replacement given embolic events in November 2024. 2. Heart failure with improved EF: She appears euvolemic. She takes furosemide 20 mg daily, although it is written as needed. Low-sodium diet. SGLT2 inhibitor has not been utilized in the past as she wished to take less medications. There also has been issues with noncompliance. 3. Cardiomyopathy: LV systolic function appears normal on TTE. She had not been taking metoprolol regularly in the past and cardiomyopathy may have been tachycardia induced. Now that she is taking her beta-ricky/rate controlling medical therapy on a more consistent basis, LV systolic function has improved over her last few echoes. 4. 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 Managed by Coumadin clinic at [facility] in outpatient setting. 5. Stroke: Seen by neurology earlier this hospital stay. Now on statin therapy. Etiology felt to be cardiac embolic. Could be related to endocarditis, atrial fibrillation, mechanical mitral valve, other. 6. Anticoagulation therapy: In the outpatient setting, followed by [facility] Coumadin clinic. Goal INR is 3 (2.5-3.5). Given the INR is subtherapeutic, start heparin as a bridge until therapeutic INR. We discussed the importance of this evening of compliance of compliance with her warfarin as she has self reduced the dose at times according to anticoagulation clinic notes and she admits today that she has skipped doses intermittently. We discussed the increased risk of stroke with subtherapeutic INR. 7. Left atrial appendage thrombus: Heparin bridge while INR subtherapeutic. The importance of compliance with her anticoagulation discussed in detail. 8. Tricuspid regurgitation: Nonsevere. 9. Atrial fibrillation: Permanent. Has had issues with compliance with beta- ricky in the past but her daughter confirms that she is taking it regularly now. Digoxin discontinued in the past. Continue anticoagulation for stroke risk reduction. Monitor CBC periodically. 10. Disposition: Cardiology will continue to follow. Admission and Anticipated Discharge Date Admission Date: February 14, 2025 Subjective Patient seen multiple times today. The last visit, her daughter was present at the bedside. Conversation was held through her daughter but also at times with official principle industrial hygienist through the iPad. When her daughter is present, she has chosen her daughter over the iPad. She denies chest pain, shortness of breath, syncope. She underwent transesophageal echo this morning. Vegetation burden seems improved however left atrial appendage thrombus was noted. We discussed this in detail. When reviewing anticoagulation clinic notes, she has skipped doses of warfarin at times and sometimes purposely taken lower than the prescribed doses. This was discussed with her daughter and her today. Physical Exam Physical Exam: Gen.: No acute distress. Alert. HEENT: Anicteric sclera. Neck: No appreciable JVD. Cardiac: Irregularly irregular. Normal heart rate. [place] S1. Normal S2. No murmurs, rubs, or gallops. Pulmonary: Clear to auscultation bilaterally without wheezes, rales, or rhonchi. Abdomen: Soft, nontender, nondistended, with normoactive bowel sounds. No bruits noted. Extremities: 2+ radial pulses bilaterally. 2+ posterior tibialis pulses bila terally. No edema or cyanosis. Results & Data Vital Signs (Past 12 Hours) Vital Signs Temp Pulse Resp BP Pulse Ox O2 Del Method 02/16/25 20:46 36.2 C L 86 17 122/86 99 Room Air 02/16/25 14:06 90 16 114/64 96 Room Air 02/16/25 13:50 106 H 18 106/69 99 Room Air 02/16/25 12:49 111 H 18 104/72 97 Room Air Laboratory Results Laboratory Results - last 24 hr 02/15/25 02/16/25 20:43 04:27 WBC 12.95 H RBC 4.85 Hgb 14.6 Hct 43.1 MCV 88.9 MCH 30.1 MCHC 33.9 RDW Std Deviation 46.0 RDW Coeff of Jason 14.3 Plt Count 155 MPV 12.4 PT 22.2 H INR 2.2 H Sodium 135 L Potassium 4.0 Chloride 101 Carbon Dioxide 29 Anion Gap 5 BUN 14 Creatinine 0.89 Est Cr Clr Drug Dosing 59.9 eGFR 71.46 BUN/Creatinine Ratio 15.7 Glucose 120 H Calcium 9.1 C-Reactive Protein 6.40 H 8.10 H Diagnostic Findings Telemetry personally reviewed: Atrial fibrillation. Labs reviewed and notable for subtherapeutic INR, stable renal function, normal hemoglobin. Blood cultures negative x 2 thus far from 02/15/2025. Transesophageal echo: Mechanical mitral valve with small likely vegetations, but improved from previous. Left atrial appendage thrombus noted with significant smoke throughout the left atrium. Medications Administered Current Inpatient Medications Acetaminophen (Acetaminophen 325 Mg Tab) 650 mg PO Q4H PRN PRN Reason: Pain or Fever Stop: 03/16/25 22:40 Al Hydrox/Mg Hydrox/Simethicone (Aluminum/Magnesium Susp 30 Ml Udc) 15 ml PO Q4H PRN PRN Reason: Dyspepsia Stop: 03/16/25 22:40 Aspirin (Aspirin 81 Mg Ectab) 81 mg PO [facility] Stop: 03/17/25 08:59 Last Admin: 02/16/25 09:36 Dose: 81 mg Atorvastatin Calcium (Atorvastatin 40 Mg Tab) 40 mg PO [facility] Stop: 03/17/25 08:59 Last Admin: 02/16/25 09:36 Dose: 40 mg Heparin Sodium (Porcine) (Heparin Sod (Porcine) 1000 Unit/Ml) 1 units IV NOW ONE Stop: 02/16/25 22:36 Heparin Sodium/Dextrose (Heparin Iv Adult Wt-Based Standard W/ Initial Bolus Protocol) 1 each IV Q15M [facility]; Protocol Stop: 02/17/25 01:00 Heparin Sodium/Dextrose (Heparin 51234 Unit/500 Ml D5w) 25,000 units in 500 mls @ 0.02 mls/hr IV .Q24H [facility]; Protocol Stop: 03/18/25 22:44 Magnesium Hydroxide (Magnesium Hydroxide Susp 30 Ml Udc) 30 ml PO Q12H PRN PRN Reason: Constipation Stop: 03/16/25 22:40 Melatonin (Melatonin 3 Mg Tab) 3 mg PO HS PRN PRN Reason: Sleep Stop: 03/16/25 22:40 Metoprolol Succinate (Metoprolol Succ 50mg Ext Rel Tab) 200 mg PO QAM [facility] Stop: 03/17/25 08:59 Last Admin: 02/16/25 09:35 Dose: 200 mg Miscellaneous Information (Pharmacist Discharge Med Rec Consult) 1 each N/A UD PRN PRN Reason: Consult Stop: 03/17/25 00:50 Ondansetron HCl (Ondansetron Inj 2 Mg/Ml 2 Ml Vial) 4 mg IV Q6H PRN PRN Reason: Nausea Stop: 03/16/25 22:40 Polyethylene Glycol (Polyethylene (Miralax) 17 Gm Pack) 17 gm PO DAILY PRN PRN Reason: Constipation Stop: 03/16/25 22:40 Warfarin Sodium (Warfarin Sod 6 Mg Tab) 6 mg PO DAILY@1600 [facility] Stop: 03/17/25 15:59 Last Admin: 02/16/25 19:49 Dose: 6 mg PG Care Time/CCT Total # of Minutes Spent Total Time Spent with Patient: Total time spent is greater than 50% in coordination of care (as documented) at patient's floor/unit and/or counseling patient: Coding Level of Care Code 76741 SUB INP/OBS CARE 3/50MIN Diagnoses Prosthetic valve endocarditis T82.6XXA; I33.0 History of mitral valve replacement with mechanical valve Z95.2 History of stroke Z86.73 Stroke-like symptoms R29.90 Heart failure with improved ejection fraction (HFimpEF) I50.20 Tricuspid regurgitation I07.1 Atrial fibrillation, permanent I48.21 Chronic anticoagulation Z79.01 Thrombus of left atrial appendage I51.3
[2025-02-16] MEDS: Heparin IV Adult Wt-Based Standard w/ INITIAL Bolus Protocol IV SCH (23:19)
[2025-02-17] MEDS: HEPARIN SOD (PORCINE) 1000 UNIT/ML IV ONE (00:30)
[2025-02-17] MEDS: HEPARIN 25000 UNIT/500 ML D5W 25,000 UNITS/500 ML BAG IV SCH (00:30)
[2025-02-17 07:50] LABS: ANTI-Xa, UFH(UnfractionatedHep 0.82 IU/ml (0.3-0.7)
[2025-02-17 07:56] LABS: INR 2.0 (0.9-1.1); Prothrombin Time 20.6 Seconds (9.0-12.0)
--- NOTE | 2025-02-17 15:39 | Hospitalist Progress Note ---
Date of Service February 17, 2025 Assessment & Plan (1) Vision problems: (2) Stroke-like symptoms: (3) HTN (hypertension): (4) Cerebral septic emboli: (5) Atrial fibrillation, permanent: (6) Chronic anticoagulation: Plan This is a 65 year old female with a PMH of mitral valve replacement, hx of CVA, a. fib on Coumadin, HTN, hx of septic emboli/endocarditis - coming in with 9-10 days of visual issues of the R eye. brain MRI found acute infarct in the right centrum semiovale region. also found chronic infarct in the cerebellar hemisphere more on the right side side visioin loss echo show improving vegatation ID consulted about whether to extend her antibiotics - has a hx of septic emboli/CVA; came in with blurry vision/dizziness - head CT done and negative - CTA head/neck done and negative Her new symptoms was the dizziness. she need CT abdomen and pelvis. subtherapeutic INR she need a close f/u with cardiology and PCP she's on heparin drip INR still low at 2.0 (goal is between 2.5---3.5) Hx of Mitral Valve Replacement - goal INR of 2.5-3.5 - INR here is 2.2 - will give Coumadin 6mg daily (takes 6mg on Friday and 4mg the rest of the week) A. fib - cont Coumadin - cont metoprolol Admission and Anticipated Discharge Date Admission Date: February 14, 2025 Subjective she's on heparin drip, noted low INR she's mentioned right side vision loss which is unchange since admission at [facility], she was recommended CT chest and abdomen to r/o malignancy ID consulted, need their input about whether to extend her antibiotics in addition. she need dental evaluation Physical Exam Physical Exam: General: no acute distress neuro: limited visual field on the right side. AAox3 HEENT:AT/NC heart: normal s1; s2; RRR; + for murmur lung: CTA b/l; on wheezing abdomen: soft to touch; non-tender to palpation Results & Data Results & Data Vital Signs (Past 12 Hours) Vital Signs Temp Pulse Resp BP Pulse Ox O2 Del Method 02/17/25 12:00 36.7 C 77 18 98/74 L 97 Room Air 02/17/25 08:28 36.9 C 78 18 118/70 97 Room Air PG Care Time/CCT Total # of Minutes Spent Total Time Spent with Patient: Total time spent is greater than 50% in coordination of care (as documented) at patient's floor/unit and/or counseling patient: Coding Level of Care Code 95910 SUB INP/OBS CARE 2/35MIN Diagnoses Vision problems H54.7 Stroke-like symptoms R29.90 HTN (hypertension) I10 Cerebral septic emboli I76; I66.9 Atrial fibrillation, permanent I48.21 Chronic anticoagulation Z79.01 Time Spent (min) 35
--- NOTE | 2025-02-17 16:00 | XCELERA ---
[id number]
[2025-02-17 16:43] LABS: ANTI-Xa, UFH(UnfractionatedHep 0.66 IU/ml (0.3-0.7)
--- NOTE | 2025-02-17 18:41 | Cardiology Progress Note ---
Date of Service February 17, 2025 Assessment & Plan (1) Prosthetic valve endocarditis: (2) History of mitral valve replacement with mechanical valve: (3) History of stroke: (4) Stroke-like symptoms: (5) Heart failure with improved ejection fraction (HFimpEF): (6) Tricuspid regurgitation: (7) Atrial fibrillation, permanent: (8) Chronic anticoagulation: (9) Thrombus of left atrial appendage: Plan ASSESSMENT/PLAN: 1. Mechanical mitral valve endocarditis: Blood cultures have been negative thus far. No fever. Has completed initial treatment therapy in the outpatient setting but has not followed up as recommended locally or at [facility] [place]. She has been seen by CT surgery at [facility] for consideration of mitral valve replacement given embolic events in November 2024. Vegetation burden improved on transesophageal echo on 02/16/2025. Hospitalist service has consulted infectious disease (consult pending). 2. Heart failure with improved EF: She appears euvolemic. She takes furosemide 20 mg daily in the outpatient setting, although it is written as needed. Low- sodium diet. SGLT2 inhibitor has not been utilized in the past as she wished to take less medications. There also has been issues with noncompliance. 3. Cardiomyopathy: LV systolic function appears normal on TTE. She had not been taking metoprolol regularly in the past and cardiomyopathy may have been tachycardia induced. Now that she is taking her beta-ricky/rate controlling medical therapy on a more consistent basis, LV systolic function has improved over her last few echoes. 4. 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 Managed by Coumadin clinic at [facility] in outpatient setting. INR is subtherapeutic. Continue to bridge with heparin drip. 5. Stroke: Seen by neurology earlier this hospital stay. Now on statin therapy. Etiology felt to be cardiac embolic. Could be related to endocarditis, atrial fibrillation, mechanical mitral valve, other. 6. Anticoagulation therapy: In the outpatient setting, followed by [facility] Coumadin clinic. Goal INR is 3 (2.5-3.5). Given the INR is subtherapeutic, now on heparin as a bridge until therapeutic INR. Give additional warfarin 1 mg today. She is currently receiving 6 mg daily which is higher than her home dose according to most recent anticoagulation clinic note. We have discussed the importance of compliance as she has been noncompliant with her warfarin dosing at home. 7. Left atrial appendage thrombus: Heparin bridge while INR subtherapeutic. The importance of compliance with her anticoagulation discussed in detail. 8. Tricuspid regurgitation: Nonsevere. 9. Atrial fibrillation: Permanent. Has had issues with compliance with beta- ricky in the past but her daughter confirms that she is taking it regularly now. Digoxin discontinued in the past. Continue anticoagulation for stroke risk reduction. Monitor CBC periodically. 10. Disposition: Cardiology will continue to follow. Patient care has been communicated with primary hospitalist, Dr. Joiner. Admission and Anticipated Discharge Date Admission Date: February 14, 2025 Subjective Patient was seen this evening with the assistance of an official plastic surgeon via electronic device. She denies chest pain, shortness of breath, palpitations, or bleeding. She had questions about her anticoagulation therapy which were answered. Physical Exam Physical Exam: Gen.: No acute distress. Alert. HEENT: Anicteric sclera. Neck: No appreciable JVD. Cardiac: Irregularly irregular. Normal rate. [place] S1. Normal S2. No murmurs, rubs, or gallops. Pulmonary: Clear to auscultation bilaterally without wheezes, rales, or rhonchi. Abdomen: Soft, nontender, nondistended, with normoactive bowel sounds. No bruits noted. Extremities: 2+ radial pulses bilaterally. 2+ posterior tibialis pulses bilaterally. No edema or cyanosis. Results & Data Vital Signs (Past 12 Hours) Vital Signs Temp Pulse Pulse Resp BP Pulse Ox O2 Del Method 02/17/25 16:07 36.7 C 70 18 108/62 97 Room Air 02/17/25 12:59 60 02/17/25 12:00 36.7 C 77 18 98/74 L 97 Room Air 02/17/25 08:28 36.9 C 78 18 118/70 97 Room Air Laboratory Results Laboratory Results - last 24 hr 02/17/25 02/17/25 07:27 15:36 PT 20.6 H INR 2.0 H Heparin Anti-Xa, Unfract 0.82 H* 0.66 Diagnostic Findings Labs reviewed notable for subtherapeutic INR, which is trending downward. Telemetry personally reviewed: Atrial fibrillation with reasonable heart rate. Medications Administered Current Inpatient Medications Acetaminophen (Acetaminophen 325 Mg Tab) 650 mg PO Q4H PRN PRN Reason: Pain or Fever Stop: 03/16/25 22:40 Al Hydrox/Mg Hydrox/Simethicone (Aluminum/Magnesium Susp 30 Ml Udc) 15 ml PO Q4H PRN PRN Reason: Dyspepsia Stop: 03/16/25 22:40 Aspirin (Aspirin 81 Mg Ectab) 81 mg PO [facility] Stop: 03/17/25 08:59 Last Admin: 02/17/25 09:07 Dose: 81 mg Atorvastatin Calcium (Atorvastatin 40 Mg Tab) 40 mg PO [facility] Stop: 03/17/25 08:59 Last Admin: 02/17/25 09:07 Dose: 40 mg Heparin Sodium/Dextrose (Heparin 82384 Unit/500 Ml D5w) 25,000 units in 500 mls @ 20 mls/hr IV .Q24H [facility]; Protocol Stop: 03/18/25 22:44 Last Titration: 02/17/25 19:08 Dose: 1,000 units/hr, 20 mls/hr Magnesium Hydroxide (Magnesium Hydroxide Susp 30 Ml Udc) 30 ml PO Q12H PRN PRN Reason: Constipation Stop: 03/16/25 22:40 Melatonin (Melatonin 3 Mg Tab) 3 mg PO HS PRN PRN Reason: Sleep Stop: 03/16/25 22:40 Metoprolol Succinate (Metoprolol Succ 50mg Ext Rel Tab) 200 mg PO [facility] Stop: 03/17/25 08:59 Last Admin: 02/17/25 09:06 Dose: 200 mg Miscellaneous Information (Pharmacist Discharge Med Rec Consult) 1 each N/A UD PRN PRN Reason: Consult Stop: 03/17/25 00:50 Ondansetron HCl (Ondansetron Inj 2 Mg/Ml 2 Ml Vial) 4 mg IV Q6H PRN PRN Reason: Nausea Stop: 03/16/25 22:40 Polyethylene Glycol (Polyethylene (Miralax) 17 Gm Pack) 17 gm PO DAILY PRN PRN Reason: Constipation Stop: 03/16/25 22:40 Warfarin Sodium (Warfarin Sod 6 Mg Tab) 6 mg PO DAILY@1600 [facility] Stop: 03/17/25 15:59 Last Admin: 02/17/25 17:33 Dose: 6 mg PG Care Time/CCT Total # of Minutes Spent Total Time Spent with Patient: Total time spent is greater than 50% in coordination of care (as documented) at patient's floor/unit and/or counseling patient: Coding Level of Care Code 21360 SUB INP/OBS CARE MIN Diagnoses Prosthetic valve endocarditis T82.6XXA; I33.0 History of mitral valve replacement with mechanical valve Z95.2 History of stroke Z86.73 Stroke-like symptoms R29.90 Heart failure with improved ejection fraction (HFimpEF) I50.20 Tricuspid regurgitation I07.1 Atrial fibrillation, permanent I48.21 Chronic anticoagulation Z79.01 Thrombus of left atrial appendage I51.3
[2025-02-17] MEDS: WARFARIN SOD 1 MG TAB PO STA (19:17)
[2025-02-18 05:49] LABS: Hematocrit (blood only) 40.5 % (37.0-47.0); Hemoglobin 13.6 g/dl (12.0-16.0); Immature Granulocytes # (auto) 0.02 K/uL (0.01-0.20); Immature Granulocytes % (auto) 0.3 %; Mean Corpuscular Hemoglobin 30.1 pg (25.0-34.0); Mean Corpuscular Volume 89.6 fL (80.0-100.0); Platelet Count 160 K/uL (130-400); RDW Standard Deviation 45.4 fL (36.4-46.3); Red Blood Count 4.52 M/uL (4.20-5.40); White Blood Count 7.40 K/ul (4.8-10.8)
[2025-02-18 06:02] LABS: Alanine Aminotransferase 21.0 U/L (7-52); Albumin Globulin Ratio 1.0 (0.9-2); Alkaline Phosphatase 90.0 U/L (34-104); Anion Gap 6.0 (3-11); Bilirubin,Total 0.5 mg/dl (0.2-1.0); Blood Urea Nitrogen 14.0 mg/dl (6-23); Calcium 8.7 mg/dl (8.6-10.3); Carbon Dioxide 28.0 mmol/L (21-32); Chloride 106.0 mmol/L (98-107); Creatinine Clr Calc Pharmacy 54.4 ml/min; Globulin 3.4 gm/dl (2.5-4.0); Glucose 126.0 mg/dl (70-99(Fasting)); Potassium 4.3 mmol/L (3.5-5.1); Sodium 140.0 mmol/L (136-145); Total Protein 6.9 gm/dl (6.0-8.3)
[2025-02-18 06:20] LABS: ANTI-Xa, UFH(UnfractionatedHep 0.60 IU/ml (0.3-0.7)
[2025-02-18 06:23] LABS: INR 2.6 (0.9-1.1); Prothrombin Time 26.1 Seconds (9.0-12.0)
--- NOTE | 2025-02-18 08:09 | Cardiology Progress Note ---
Date of Service February 18, 2025 Assessment & Plan (1) Prosthetic valve endocarditis: (2) History of mitral valve replacement with mechanical valve: (3) History of stroke: (4) Stroke-like symptoms: (5) Heart failure with improved ejection fraction (HFimpEF): (6) Tricuspid regurgitation: (7) Atrial fibrillation, permanent: (8) Chronic anticoagulation: (9) Thrombus of left atrial appendage: Plan ASSESSMENT/PLAN: 1. Mechanical mitral valve endocarditis: Blood cultures have been negative thus far. No fever. Has completed initial treatment therapy in the outpatient setting but has not followed up as recommended locally or at [facility]. She has been seen by CT surgery at [facility] for consideration of mitral valve replacement given embolic events in November 2024. Vegetation burden improved on transesophageal echo on 02/16/2025. No need for any further treatment as per infectious disease. 2. Heart failure with improved EF: She appears euvolemic. She takes furosemide 20 mg daily in the outpatient setting, although it is written as needed. Low- sodium diet. SGLT2 inhibitor has not been utilized in the past as she wished to take less medications. There also has been issues with noncompliance. 3. Cardiomyopathy: LV systolic function appears normal on TTE. She had not been taking metoprolol regularly in the past and cardiomyopathy may have been tachycardia induced. Now that she is taking her beta-ricky/rate controlling medical therapy on a more consistent basis, LV systolic function has improved over her last few echoes. 4. 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 Managed by Coumadin clinic at [facility] in outpatient setting. INR is now therapeutic. Stop heparin drip. 5. Stroke: Seen by neurology earlier this hospital stay. Now on statin therapy. Etiology felt to be cardiac embolic. Could be related to endocarditis, atrial fibrillation, mechanical mitral valve, other. Neurology does not recommend antiplatelet therapy in her case. Follow-up with ophthalmology. 6. Anticoagulation therapy: In the outpatient setting, followed by [facility] Coumadin clinic. Goal INR is 3 (2.5-3.5). Heparin drip discontinued now that INR is therapeutic. We again discussed the importance of compliance as she has been noncompliant with her warfarin dosing at home. Follow-up with [facility] Coumadin clinic early next week. 7. Left atrial appendage thrombus: INR is now therapeutic. The importance of compliance with her anticoagulation discussed in detail. 8. Tricuspid regurgitation: Nonsevere. 9. Atrial fibrillation: Permanent. Has had issues with compliance with beta- ricky in the past but her daughter confirms that she is taking it regularly now. Digoxin discontinued in the past. Continue anticoagulation for stroke risk reduction. Monitor CBC periodically. 10. Disposition: Can be discharged home from a cardiology perspective. Outpatient follow-up is already scheduled in the cardiology office. Patient care has been communicated with primary hospitalist, Dr. Joiner. Admission and Anticipated Discharge Date Admission Date: February 14, 2025 Subjective Patient seen this afternoon with her daughters and granddaughter at the bedside. She denies chest pain, shortness of breath, syncope, near syncope, palpitations, or bleeding. She wants to go home. Physical Exam Physical Exam: Gen.: No acute distress. Alert. HEENT: Anicteric sclera. Neck: No appreciable JVD. Cardiac: Irregularly irregular. Normal rate. Swisher S1. Normal S2. No murmurs, rubs, or gallops. Pulmonary: Clear to auscultation bilaterally without wheezes, rales, or rhonchi. Abdomen: Soft, nontender, nondistended, with normoactive bowel sounds. No bruits noted. Extremities: 2+ radial pulses bilaterally. 2+ posterior tibialis pulses bilaterally. No pitting edema or cyanosis. Results & Data Vital Signs (Past 12 Hours) Vital Signs Temp Pulse Pulse Resp BP Pulse Ox O2 Del Method 02/18/25 07:29 75 02/18/25 03:32 36.8 C 64 18 129/85 97 Room Air 02/17/25 23:33 36.6 C 74 18 106/67 97 Room Air 02/17/25 23:26 95 H Laboratory Results Laboratory Results - last 24 hr 02/17/25 02/18/25 15:36 05:26 WBC 7.40 RBC 4.52 Hgb 13.6 Hct 40.5 MCV 89.6 MCH 30.1 MCHC 33.6 RDW Std Deviation 45.4 RDW Coeff of Jason 14.0 Plt Count 160 MPV 12.7 H Immature Gran % (Auto) 0.3 Neut % (Auto) 51.6 Lymph % (Auto) 31.1 Ziebach % (Auto) 13.2 Eos % (Auto) 3.1 Baso % (Auto) 0.7 Neut # (Auto) 3.82 Lymph # (Auto) 2.30 Ziebach # (Auto) 0.98 H Eos # (Auto) 0.23 Baso # (Auto) 0.05 Immature Gran # (Auto) 0.02 PT 26.1 H INR 2.6 H Heparin Anti-Xa, Unfract 0.66 0.60 Sodium 140 Potassium 4.3 Chloride 106 Carbon Dioxide 28 Anion Gap 6 BUN 14 Creatinine 0.98 Est Cr Clr Drug Dosing 54.4 eGFR 63.66 BUN/Creatinine Ratio 14.3 Glucose 126 H Calcium 8.7 Total Bilirubin 0.5 AST 21 ALT 21 Alkaline Phosphatase 90 Total Protein 6.9 Albumin 3.5 Globulin 3.4 Albumin/Globulin Ratio 1.0 Diagnostic Findings Labs reviewed and notable for therapeutic INR, normal blood counts, normal potassium, stable renal function. Telemetry personally reviewed: Atrial fibrillation with reasonable rate. Medications Administered Current Inpatient Medications Acetaminophen (Acetaminophen 325 Mg Tab) 650 mg PO Q4H PRN PRN Reason: Pain or Fever Stop: 03/16/25 22:40 Al Hydrox/Mg Hydrox/Simethicone (Aluminum/Magnesium Susp 30 Ml Udc) 15 ml PO Q4H PRN PRN Reason: Dyspepsia Stop: 03/16/25 22:40 Aspirin (Aspirin 81 Mg Ectab) [address] [facility] Stop: 03/17/25 08:59 Last Admin: 02/17/25 09:07 Dose: 81 mg Atorvastatin Calcium (Atorvastatin 40 Mg Tab) [address] [facility] Stop: 03/17/25 08:59 Last Admin: 02/17/25 09:07 Dose: 40 mg Heparin Sodium/Dextrose (Heparin 15151 Unit/500 Ml D5w) 25,000 units in 500 mls @ 20 mls/hr IV .Q24H [facility]; Protocol Stop: 03/18/25 22:44 Last Admin: 02/18/25 00:52 Dose: 1,000 units/hr, 20 mls/hr Magnesium Hydroxide (Magnesium Hydroxide Susp 30 Ml Udc) 30 ml PO Q12H PRN PRN Reason: Constipation Stop: 03/16/25 22:40 Melatonin (Melatonin 3 Mg Tab) 3 mg PO HS PRN PRN Reason: Sleep Stop: 03/16/25 22:40 Metoprolol Succinate (Metoprolol Succ 50mg Ext Rel Tab) 200 mg PO QAM [facility] Stop: 03/17/25 08:59 Last Admin: 02/17/25 09:06 Dose: 200 mg Miscellaneous Information (Pharmacist Discharge Med Rec Consult) 1 each N/A UD PRN PRN Reason: Consult Stop: 03/17/25 00:50 Ondansetron HCl (Ondansetron Inj 2 Mg/Ml 2 Ml Vial) 4 mg IV Q6H PRN PRN Reason: Nausea Stop: 03/16/25 22:40 Polyethylene Glycol (Polyethylene (Miralax) 17 Gm Pack) 17 gm PO DAILY PRN PRN Reason: Constipation Stop: 03/16/25 22:40 Warfarin Sodium (Warfarin Sod 6 Mg Tab) 6 mg PO DAILY@1600 [facility] Stop: 03/17/25 15:59 Last Admin: 02/17/25 17:33 Dose: 6 mg PG Care Time/CCT Total # of Minutes Spent Total Time Spent with Patient: Total time spent is greater than 50% in coordination of care (as documented) at patient's floor/unit and/or counseling patient: Coding Level of Care Code 58575 SUB INP/OBS CARE 3/50MIN Diagnoses Prosthetic valve endocarditis T82.6XXA; I33.0 History of mitral valve replacement with mechanical valve Z95.2 History of stroke Z86.73 Stroke-like symptoms R29.90 Heart failure with improved ejection fraction (HFimpEF) I50.20 Tricuspid regurgitation I07.1 Atrial fibrillation, permanent I48.21 Chronic anticoagulation Z79.01 Thrombus of left atrial appendage I51.3
--- NOTE | 2025-02-18 09:03 | Infectious Disease Consult ---
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 Cardiac surgery evaluated the patient and recommended no surgery at that time, but to repeat THUY in 2 weeks and re-evaluate whether surgery is necessary. ID at [facility] recommended to continue ceftriaxone 2 g IV q24h x 6 weeks through 01/02/25. A repeat THUY was performed 12/21/24 and showed mechanical MV with 2 visualized vegetations, mobile and measuring up to 1 - 1.5 cm in length. Compared to prior THUY on 11/22/24, vegetation burden appeared less. Pt did not follow-up with CT surgery at [facility], and it has been rescheduled for 03/01/25. She also had an appt in January with [facility] Cardiology, but she canceled that as well. Pt saw GI on 01/12/25 due to Strep gallolyticus bacteremia with plan to undergo screening colonoscopy. Pt presented on 02/14 with 9-10 days of R eye vision problems, dizziness. On presentation, pt was afebrile, VSS. Labs showed WBC 10.91, INR 2.2 (goal 2.5- 3.5). CT head negative. CTA head/neck with no definite stenosis/aneurysm of intracranial arteries. MRI brain showed acute infarctions at R centrum semiovale regions, chronic infarctions with encephalomalacia seen in cerebellar hemispheres more on the R side. Neurology was consulted, felt pt likely had R eye central retinal artery occlusion or ocular vascular stroke leading to her vision loss, likely due to cardiac embolic stroke. TTE showed a possible small veg involving mechanical MV. THUY on 02/16 showed large layering (nonmobile) thrombus within L atrial appendage, layering echodensity on atrial side of mechanical MV which may represent veg vs thrombus vs pannus. Compared to prior THUY 12/20/24, previously seen mobile veg involving mechanical MV prosthesis have improved. Pt has not received antibiotics this admission. BCx on 02/15 are NGTD. Pt denies fevers, or chills. Recommendations: - With blood cultures NGTD this admission, can hold off on antibiotics. The vegetation may be sterilized after recent 6 week course of IV antibiotics - Continue to follow blood culture until finalized as negative Will sign off. Please re-consult ID with further concerns or if blood culture turns positive Consultation Information Consultation was provided via telemedicine using two-way real-time interactive telecommunication between the patient and the telemedicine provider. For the duration of the visit, the provider was performing the assessment from a different facility than the patient. This includesuse of bluetooth stethoscope forauscultationperformed by the telepresenter that the telemedicine provider can hear if described in the physical exam. Communications Equipment Supervisor contact information: Please call [facility] . (Phone Number For Physician Use Only) After establishing a telemedicine visit, patient was: Patient was verified with two unique identifiers, Patient/authorized rep acknowledged consent and understanding and Gave permission to continue telehealth session Time Spent with Patient: Initial => 75 min History of Present Illness Reason for Consultation: Endocarditis, stroke Attending Physician: Ravi Joiner DO History of Present Illness 64 yo F with afib on coumadin, CHF, HTN, rheumatic mitral valve disease s/p mechanical MVR (1999) with recent admission in 11/2024 with 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 Cardiac surgery evaluated the patient and recommended no surgery at that time, but to repeat THUY in 2 weeks and re-evaluate whether surgery is necessary. ID at [facility] recommended to continue ceftriaxone 2 g IV q24h x 6 weeks through 01/02/25. A repeat THUY was performed 12/21/24 and showed mechanical MV with 2 visualized vegetations, mobile and measuring up to 1 - 1.5 cm in length. Compared to prior THUY on 11/22/24, vegetation burden appeared less. Pt did not follow-up with CT surgery at [facility], and it has been rescheduled for 03/01/25. She also had an appt in January with [facility] Cardiology, but she canceled that as well. Pt saw GI on 01/12/25 due to Strep gallolyticus bacteremia with plan to undergo screening colonoscopy. Pt presented on 02/14 with 9-10 days of R eye vision problems, dizziness. On presentation, pt was afebrile, VSS. Labs showed WBC 10.91, INR 2.2 (goal 2.5- 3.5). CT head negative. CTA head/neck with no definite stenosis/aneurysm of intracranial arteries. MRI brain showed acute infarctions at R centrum semiovale regions, chronic infarctions with encephalomalacia seen in cerebellar hemispheres more on the R side. Neurology was consulted, felt pt likely had R eye central retinal artery occlusion or ocular vascular stroke leading to her vision loss, likely due to cardiac embolic stroke. TTE showed a possible small veg involving mechanical MV. THUY on 02/16 showed large layering (nonmobile) thrombus within L atrial appendage, layering echodensity on atrial side of mechanical MV which may represent veg vs thrombus vs pannus. Compared to prior THUY 12/20/24, previously seen mobile veg involving mechanical MV prosthesis have improved. Pt has not received antibiotics this admission. BCx on 02/15 are NGTD. Pt denies fevers, or chills. Allergies Allergy/AdvReac Type Severity Reaction Status Date / Time No Known Allergies Allergy Verified 02/16/25 13:00 Home Medications Medication Instructions Recorded Confirmed Type hydrocortisone 2.5 % topical cream 1 applic topical BID PRN skin 10/01/21 02/14/25 Rx irritation #28 grams acetaminophen 325 mg tablet 650 mg PO Q4H PRN headache 11/21/22 02/14/25 History compress.stocking,knee,reg,med #2 ea 04/28/23 02/15/25 Rx amoxicillin 500 mg capsule 2,000 mg PO .COMPLEX PRN dental 12/10/24 02/14/25 History appointment metoprolol succinate 50 mg 200 mg PO QAM 12/10/24 02/14/25 History tablet,extended release 24 hr furosemide 20 mg tablet 20 mg PO DAILY PRN short of breath 12/20/24 02/14/25 Rx #90 tabs warfarin 4 mg tablet See Rx Instructions .Route 01/24/25 02/14/25 Rx .COMPLEX #100 tabs enoxaparin 60 mg/0.6 mL 60 mg (0.6 mL) subcut Q12H #10 02/10/25 02/14/25 Rx subcutaneous syringe syringes peg 3350-sod [id number] See Rx Instructions PO .COMPLEX #2 02/14/25 02/14/25 Rx 178.7-7.3-0.5-1.12-0.9 gram oral mL soln (Suflave) Patient History Medical History (Updated 02/16/25 @ 22:25 by Alexsander Kilpatrick MD) Cerebral septic emboli Prosthetic valve endocarditis Heart failure with mid-range ejection fraction EF 40-45% PICC (peripherally inserted central catheter) in place History of recent hospitalization 11/19/24, admitted to [facility], per records "Acute prosthetic mitral valve endocarditis Strep gallolyticus bacteremia Septic embolization leading to embolic strokes Rapid atrial fibrillation. Rate controlled on metoprolol." Transferred to [facility] for CT surgery due to septic embolization causing emboic strokes History of transesophageal echocardiography (THUY) 11/2024 Chronic anticoagulation History of atrial fibrillation Tricuspid regurgitation hx History of stroke - 1999, still has balance and walking issues, still has some right sided weakness, burning sensation left foot from stroke - embolic strokes 11/24/24 from septic embolization per records - per discharge records 11/30/24- recommend vascular neurology follow up in 6- 8 weeks History of hypertension AGUILAR (dyspnea on exertion) Rheumatic mitral valve disease Surgical History History of mitral valve replacement with mechanical valve 2000, [place], [place]; f/u omar kilpatrick cardio S/P wisdom tooth extraction Family History Father Colorectal cancer Denies family history of Ovarian cancer Prostate cancer Myocardial infarction Breast cancer Social History Smoking Status: Never smoker Second Hand Exposure: Yes (hx many years ago); Do You Dip or Chew Tobacco: No; Hx Alcohol Use: No Hx Substance Use: No Preferred Language: Latvian Communication Ability: Effective Communication Tools: Writing Tablet Visual Impairment: No Limitations Hearing Ability: Normal Nurse Midwife Required: Yes Beliefs That Will Affect Care: None marital status: Single Current Living Situation: Family Current Living Situation Comment: lives with daughter current occupational status: unemployed and retired Feels Safe at Home: Yes Childhood Exposure to Second-Hand Smoke: No Diet: regular Dental Care, Regularly: No Physical Activity Frequency: Does not Exercise Seatbelt Use: always Sunscreen Use: Yes Assistive Devices: None Review of System A complete ROS was performed and is negative except as mentioned in the HPI. Physical Exam Physical Exam: GEN: laying in bed in NAD. RESP: No increased work of breathing ABD: Soft, non-distended. Non-tender to palpation. Results & Data Vital Signs (Past 12 Hours) Vital Signs Temp Pulse Pulse Resp BP Pulse Ox O2 Del Method 02/18/25 08:18 36.4 C L 77 16 117/84 98 Room Air 02/18/25 07:29 75 02/18/25 03:32 36.8 C 64 18 129/85 97 Room Air 02/17/25 23:33 36.6 C 74 18 106/67 97 Room Air 02/17/25 23:26 95 H Laboratory Results Short CBC 02/18/25 Range/Units 05:26 WBC 7.40 (4.8-10.8) K/ul Hgb 13.6 (12.0-16.0) g/dl Hct 40.5 (37.0-47.0) % Plt Count 160 (130-400) K/uL BMP 02/18/25 05:26 Sodium 140 Potassium 4.3 Chloride 106 Carbon Dioxide 28 BUN 14 Creatinine 0.98 Glucose 126 H Calcium 8.7 Liver Function 02/18/25 Range/Units 05:26 Total Bilirubin 0.5 (0.2-1.0) mg/dl AST 21 (13-39) U/L ALT 21 (7-52) U/L Alkaline Phosphatase 90 (34-104) U/L Albumin 3.5 (3.4-5.0) gm/dl Medications Administered Current Inpatient Medications Acetaminophen (Acetaminophen 325 Mg Tab) 650 mg PO Q4H PRN PRN Reason: Pain or Fever Stop: 03/16/25 22:40 Al Hydrox/Mg Hydrox/Simethicone (Aluminum/Magnesium Susp 30 Ml Udc) 15 ml PO Q4H PRN PRN Reason: Dyspepsia Stop: 03/16/25 22:40 Aspirin (Aspirin 81 Mg Ectab) 81 mg PO [facility] Stop: 03/17/25 08:59 Last Admin: 02/18/25 08:27 Dose: 81 mg Atorvastatin Calcium (Atorvastatin 40 Mg Tab) 40 mg PO [facility] Stop: 03/17/25 08:59 Last Admin: 02/18/25 08:27 Dose: 40 mg Heparin Sodium/Dextrose (Heparin 99485 Unit/500 Ml D5w) 25,000 units in 500 mls @ 20 mls/hr IV .Q24H [facility]; Protocol Stop: 03/18/25 22:44 Last Admin: 02/18/25 00:52 Dose: 1,000 units/hr, 20 mls/hr Magnesium Hydroxide (Magnesium Hydroxide Susp 30 Ml Udc) 30 ml PO Q12H PRN PRN Reason: Constipation Stop: 03/16/25 22:40 Melatonin (Melatonin 3 Mg Tab) 3 mg PO HS PRN PRN Reason: Sleep Stop: 03/16/25 22:40 Metoprolol Succinate (Metoprolol Succ 50mg Ext Rel Tab) 200 mg PO [facility] Stop: 03/17/25 08:59 Last Admin: 02/18/25 08:27 Dose: 200 mg Miscellaneous Information (Pharmacist Discharge Med Rec Consult) 1 each N/A UD PRN PRN Reason: Consult Stop: 03/17/25 00:50 Ondansetron HCl (Ondansetron Inj 2 Mg/Ml 2 Ml Vial) 4 mg IV Q6H PRN PRN Reason: Nausea Stop: 03/16/25 22:40 Polyethylene Glycol (Polyethylene (Miralax) 17 Gm Pack) 17 gm PO DAILY PRN PRN Reason: Constipation Stop: 03/16/25 22:40 Warfarin Sodium (Warfarin Sod 6 Mg Tab) 6 mg PO DAILY@1600 [facility] Stop: 03/17/25 15:59 Last Admin: 02/17/25 17:33 Dose: 6 mg
[2025-02-18 12:07] VITALS: BP 117/57; PULSE 78; RESP 18; TEMP 97.7; O2SAT 97
--- NOTE | 2025-02-18 13:41 | Hospitalist Progress Note ---
Date of Service February 18, 2025 Assessment & Plan (1) Vision problems: (2) Stroke-like symptoms: (3) HTN (hypertension): (4) Cerebral septic emboli: (5) Atrial fibrillation, permanent: (6) Chronic anticoagulation: Plan This is a 65 year old female with a PMH of mitral valve replacement, hx of CVA, a. fib on Coumadin, non-compliance HTN, hx of septic emboli/endocarditis - coming in with 9-10 days of visual issues of the R eye. found to has stroke in right centrum semovale (right side vision loss) THUY found vegetation, blood culture negative brain MRI found acute infarct in the right centrum semiovale region. also found chronic infarct in the cerebellar hemisphere more on the right side side visioin loss echo show improving vegatation ID consulted about whether to extend her antibiotics - has a hx of septic emboli/CVA; came in with blurry vision/dizziness - head CT done and negative - CTA head/neck done and negative Her new symptoms was the dizziness. she need CT abdomen and pelvis. she will need to wait for 4-6 weeks after her stroke to has colonoscopy subtherapeutic INR non-compliance she has appointment with warfarin clinics on Friday she need a close f/u with cardiology and PCP she's on heparin drip INR still low at 2.0 (goal is between 2.5---3.5) Hx of Mitral Valve Replacement - goal INR of 2.5-3.5 - INR here is 2.2 - will give Coumadin 6mg daily (takes 6mg on Friday and 4mg the rest of the week) A. fib - cont Coumadin - cont metoprolol Admission and Anticipated Discharge Date Admission Date: February 14, 2025 Subjective she's eager for discharge today spoke with her daughter, non-compliance with warfarin after lengthy discussion with pharmacy continue current dosage she's has f/u appointment with warfarin clinics next Friday spoke with ID, reviewed vegetation, they are deferring antibiotics spoke with neurology; they want patient to wait 4-6 weeks prior to has colonoscopy spoke with cardiology reviewed lab, reviewed image Results & Data Results & Data Vital Signs (Past 12 Hours) Vital Signs Temp Pulse Pulse Resp BP Pulse Ox O2 Del Method 02/18/25 12:06 36.5 C 78 18 117/57 L 97 Room Air 02/18/25 08:18 36.4 C L 77 16 117/84 98 Room Air 02/18/25 07:29 75 02/18/25 03:32 36.8 C 64 18 129/85 97 Room Air Diagnostic Findings Laboratory Results - last 72 hr 02/15/25 02/16/25 02/17/25 20:43 04:27 07:27 WBC 12.95 H RBC 4.85 Hgb 14.6 Hct 43.1 MCV 88.9 MCH 30.1 MCHC 33.9 RDW Std Deviation 46.0 RDW Coeff of Jason 14.3 Plt Count 155 MPV 12.4 Immature Gran % (Auto) Neut % (Auto) Lymph % (Auto) Wilcox % (Auto) Eos % (Auto) Baso % (Auto) Neut # (Auto) Lymph # (Auto) Wilcox # (Auto) Eos # (Auto) Baso # (Auto) Immature Gran # (Auto) ESR 39 H PT 22.2 H 20.6 H INR 2.2 H 2.0 H Heparin Anti-Xa, Unfract 0.82 H* Sodium 135 L Potassium 4.0 Chloride 101 Carbon Dioxide 29 Anion Gap 5 BUN 14 Creatinine 0.89 Est Cr Clr Drug Dosing 59.9 eGFR 71.46 BUN/Creatinine Ratio 15.7 Glucose 120 H Calcium 9.1 Total Bilirubin AST ALT Alkaline Phosphatase C-Reactive Protein 6.40 H 8.10 H Total Protein Albumin Globulin Albumin/Globulin Ratio 02/17/25 02/18/25 15:36 05:26 WBC 7.40 RBC 4.52 Hgb 13.6 Hct 40.5 MCV 89.6 MCH 30.1 MCHC 33.6 RDW Std Deviation 45.4 RDW Coeff of Jason 14.0 Plt Count 160 MPV 12.7 H Immature Gran % (Auto) 0.3 Neut % (Auto) 51.6 Lymph % (Auto) 31.1 Wilcox % (Auto) 13.2 Eos % (Auto) 3.1 Baso % (Auto) 0.7 Neut # (Auto) 3.82 Lymph # (Auto) 2.30 Wilcox # (Auto) 0.98 H Eos # (Auto) 0.23 Baso # (Auto) 0.05 Immature Gran # (Auto) 0.02 ESR PT 26.1 H INR 2.6 H Heparin Anti-Xa, Unfract 0.66 0.60 Sodium 140 Potassium 4.3 Chloride 106 Carbon Dioxide 28 Anion Gap 6 BUN 14 Creatinine 0.98 Est Cr Clr Drug Dosing 54.4 eGFR 63.66 BUN/Creatinine Ratio 14.3 Glucose 126 H Calcium 8.7 Total Bilirubin 0.5 AST 21 ALT 21 Alkaline Phosphatase 90 C-Reactive Protein Total Protein 6.9 Albumin 3.5 Globulin 3.4 Albumin/Globulin Ratio 1.0 Medications Administered Current Inpatient Medications Acetaminophen (Acetaminophen 325 Mg Tab) 650 mg PO Q4H PRN PRN Reason: Pain or Fever Stop: 03/16/25 22:40 Al Hydrox/Mg Hydrox/Simethicone (Aluminum/Magnesium Susp 30 Ml Udc) 15 ml PO Q4H PRN PRN Reason: Dyspepsia Stop: 03/16/25 22:40 Aspirin (Aspirin 81 Mg Ectab) 81 mg PO [facility] Stop: 03/17/25 08:59 Last Admin: 02/18/25 08:27 Dose: 81 mg Atorvastatin Calcium (Atorvastatin 40 Mg Tab) 40 mg PO [facility] Stop: 03/17/25 08:59 Last Admin: 02/18/25 08:27 Dose: 40 mg Heparin Sodium/Dextrose (Heparin 18581 Unit/500 Ml D5w) 25,000 units in 500 mls @ 20 mls/hr IV .Q24H [facility]; Protocol Stop: 03/18/25 22:44 Last Admin: 02/18/25 00:52 Dose: 1,000 units/hr, 20 mls/hr Magnesium Hydroxide (Magnesium Hydroxide Susp 30 Ml Udc) 30 ml PO Q12H PRN PRN Reason: Constipation Stop: 03/16/25 22:40 Melatonin (Melatonin 3 Mg Tab) 3 mg PO HS PRN PRN Reason: Sleep Stop: 03/16/25 22:40 Metoprolol Succinate (Metoprolol Succ 50mg Ext Rel Tab) 200 mg PO [facility] Stop: 03/17/25 08:59 Last Admin: 02/18/25 08:27 Dose: 200 mg Miscellaneous Information (Pharmacist Discharge Med Rec Consult) 1 each N/A UD PRN PRN Reason: Consult Stop: 03/17/25 00:50 Ondansetron HCl (Ondansetron Inj 2 Mg/Ml 2 Ml Vial) 4 mg IV Q6H PRN PRN Reason: Nausea Stop: 03/16/25 22:40 Polyethylene Glycol (Polyethylene (Miralax) 17 Gm Pack) 17 gm PO DAILY PRN PRN Reason: Constipation Stop: 03/16/25 22:40 Warfarin Sodium (Warfarin Sod 6 Mg Tab) 6 mg PO Hodges@1600 [place] Stop: 03/22/25 15:59 Warfarin Sodium (Warfarin Sod 4 Mg Tab) 4 mg PO MoTuWeThFrSa@1600 [place] Stop: 03/20/25 15:59 PG Care Time/CCT Total # of Minutes Spent Total Time Spent with Patient: Total time spent is greater than 50% in coordination of care (as documented) at patient's floor/unit and/or counseling patient: Coding Level of Care Code 81390 SUB INP/OBS CARE 2/35MIN Diagnoses Vision problems H54.7 Stroke-like symptoms R29.90 HTN (hypertension) I10 Cerebral septic emboli I76; I66.9 Atrial fibrillation, permanent I48.21 Chronic anticoagulation Z79.01 Time Spent (min) 35
[2025-02-18] MEDS: STROKE PATIENT DISCHARGE STA (15:27)
[2025-02-18] MEDS: WARFARIN SOD 4 MG TAB PO SCH (15:27)
--- NOTE | 2025-02-18 18:30 | Discharge Summary ---
Discharge Summary Date of Service February 18, 2025 Principal Dx & Hospital Course #1 = Principal Diagnosis (1) Vision problems: Hospital course she's has mitral valve repair, hx of endocarditis; she's normally take warfarin and with her goal INR between 2.5--3.5, however, been non-compliance she was schedule for colonoscopy in February for rule out underlying malignancy, Ira recommended CT abdomen and pelvis she's was having right side vision loss and brain MRI found infarct in the right centrum semiovale region. was found to has low INR, her THUY found improving vegetation. however, her blood culture remained negative and she was afebrile cardiology and neurology suspect her stroke is related to sub-therapeutics INR and she's s/p heparin briding her INR improved to 2.6 on 02/18/2025. her case was reviewed by infectious disease, and they do not suspect active endocarditis and deferred antibiotics she was dc home on 02/18/2025 with her normal warfarin dose warfarin 6mg on Friday 4mg daily on Fri-Friday she will has f/u appointment in warfarin clinics on Friday daughter updated. discussed that colonoscpy will need to postpone for 4-6 weeks given her stroke (2) Stroke-like symptoms: (3) HTN (hypertension): (4) Cerebral septic emboli: (5) Atrial fibrillation, permanent: (6) Chronic anticoagulation: Plan This is a 65 year old female with a PMH of mitral valve replacement, hx of CVA, a. fib on Coumadin, non-compliance HTN, hx of septic emboli/endocarditis - coming in with 9-10 days of visual issues of the R eye. found to has stroke in right centrum semovale (right side vision loss) THUY found vegetation, blood culture negative brain MRI found acute infarct in the right centrum semiovale region. also found chronic infarct in the cerebellar hemisphere more on the right side side visioin loss echo show improving vegatation ID consulted about whether to extend her antibiotics - has a hx of septic emboli/CVA; came in with blurry vision/dizziness - head CT done and negative - CTA head/neck done and negative Her new symptoms was the dizziness. she need CT abdomen and pelvis. she will need to wait for 4-6 weeks after her stroke to has colonoscopy subtherapeutic INR non-compliance she has appointment with warfarin clinics on Friday she need a close f/u with cardiology and PCP she's on heparin drip INR still low at 2.0 (goal is between 2.5---3.5) Hx of Mitral Valve Replacement - goal INR of 2.5-3.5 - INR here is 2.2 - will give Coumadin 6mg daily (takes 6mg on Friday and 4mg the rest of the week) A. fib - cont Coumadin - cont metoprolol Admission HPI Per Admitting Provider This is a 65 year old female with a PMH of mitral valve replacement, hx of CVA, a. fib on Coumadin, HTN, hx of septic emboli/endocarditis - coming in with 9-10 days of visual issues of the R eye. She states she's also had dizziness in this timeframe. She asked her primary care and was told to come to the ED due to hx of stroke, septic emboli and A. fib. In the ER, she states that she has R eye blurriness and balance issues. Has been going on for a month, but worse in the past 9-10 days. Had a head CT and CTA head/neck and negative for acute stroke. Discharge Exam VITALS: Reviewed. WEIGHT/BMI reviewed. GEN: Healthy appearing, well-developed, NAD. PSYCH: Good Judgment. AOx3. Normal memory, mood, and affect. HEENT -Head: NC/AT; NECK: Supple, with no masses. CV: RRR, no m/r/g. LUNGS: CTAB, no w/r/c. ABD: Soft, NT/ND, NBS, no masses or organomegaly. MSK: No deformities, Normal gait. EXT: No clubbing, cyanosis, or edema. NEURO: Ambulating with no limitations. Normal muscle strength and tone limited vision on the right side. following command 5/5 strength Discharge Plan Discharge Items Patient Disposition: Home - Self-Care Reason For Visit: VISUAL DISTURBANCE Discharge Diagnosis: embolic stroke; sub-therapeutic INR non-compliance hx of endocarditis hx of mitral valve repalcement Condition on Discharge: Fair Activity: Per Instructions section Non-emergency contact: Primary Care Provider and Claim Technician Call non-emergency contact if: your symptoms worsen and you have a fever Follow-up/Referrals: Angi Epperson MD [Primary Care Provider] - 02/21/25 3:00 pm (Scheduled with BREANNA Valdez) Diet: Heart Healthy Diet Comment: no leafy green vegetable Addtl Attending Provider Instructions: follow up with cardiology follow up with gastroenterology stay on blood thinner follow up with anticoagulation clinics Pending Studies at Discharge: Yes Studies:: colonoscopy Stand-Alone Forms: [facility], Smoking Cessation, Medications to Prevent Stroke Medications and DC Order Prescriptions: New atorvastatin 40 mg Tablet 40 mg PO QAM 30 Days Qty: 30 0RF warfarin [Jantoven] 4 mg Tablet 4 mg PO MoTuWeThFrSa@1600 30 Days Qty: 26 0RF warfarin 6 mg Tablet 6 mg PO Hodges@1600 30 Days Qty: 5 0RF Continued acetaminophen 325 mg tablet 650 mg PO Q4H PRN (Reason: headache) warfarin 4 mg tablet See Rx Instructions .ROUTE .COMPLEX Qty: 100 1RF Rx Instructions: 6mg q Sun, 4mg x 6 days or per [facility] [id number]; enoxaparin 60 mg/0.6 mL syringe 60 mg subcut Q12H Qty: 10 0RF Rx Instructions: Use twice daily on days as directed by [facility] Anticoagulation Clinic Suflave 178.7-7.3-0.5 gram recon soln See Rx Instructions PO .COMPLEX Qty: 2 0RF Rx Instructions: orally; orally; TAKE FIRST DOSE AT 6 PM AND SECOND DOSE 6 HOURS PRIOR TO PROCEDURE BIN: [id number] N: 2000 GROUP: [id number] (DME) compress.stocking,knee,reg,med Misc See Rx Instructions .Route Qty: 2 0RF Rx Instructions: As directed 15mmHg, R60.9 hydrocortisone 2.5 % cream 1 applic topical BID PRN (Reason: skin irritation) Qty: 28 1RF furosemide 20 mg tablet 20 mg PO DAILY PRN (Reason: short of breath) 30 Days Qty: 90 1RF Rx Instructions: take 2 days and then qday as needed amoxicillin 500 mg capsule 2,000 mg PO .COMPLEX PRN (Reason: dental appointment) Rx Instructions: 2,000 mg PO ; Take 4 caps 30-60 minutes prior to dental appointment metoprolol succinate 50 mg tablet extended release 24 hr 200 mg PO QAM Rx Instructions: PER PT'S DAUGHTER "UNSURE WHEN SHE LAST TOOK THIS MED". Discharge Orders: Discharge Order (Routine); Ordered 02/18/25 Ordered By: Ravi Roman/Other Patient Handouts: Prediabetes, Anticoagulants, 5 Steps for Eating Healthier Admission Data Admit Date/Time: 02/14/25 20:23 Attending Provider: Ravi Joiner Admit Provider: Boy Arboleda Primary Care Provider: Angi Epperson Other Providers: Boy Arboleda; [facility]; Maximiliano Comer; Willian Wang; Sandrine Victor; Shaye Gay; Pete Chester; Pearl Dahl; Krishna Melo; Akshat Mccartney; Hector Blancas; Neri Tolentino; Joey Alonso Jr; Alexsander Birch; Johana Pitts; Kisah Baumann; Nicho Mena; Nicho Moy; Sera Whitt; Chaitanya Moreno; Cassi Loya; Chaitanya Robison; Felix Crockett; Ajay Davis S; Alex Pagan; Jaylon Mullen; Willem Cabrera; Deborah Clarke; Tahira Vegas; Pamela Florence; Terra De Guzman; Daksha Card; Amish Hinson; Sancho Barnett; Chaitanya Tony; Maximiliano Lombardo; Sera Antonio; Roderick Al; Enrique Robles; Marcus Griggs; Ursula Kauffman; Alvaro Eugene; Mery Eugene; Agusto Shirley; Jennifer Obrien; Dave Moreland; Nette Velez; Monalisa Murillo; Dylon Regalado; Jocelyn Chin; Jennifer Apple; Lorraine Veloz; Kezia Escobar; Ori Escobar V; Gavin Nolen; Pamela Kaur; Clinton Lorenzo; Faith Hodge; Ori Maradiaga; Freeman Kauffman; Moustapha Shin; Shruthi John; Katelin Denney; Ori Marcus; Hugh Lauren; Rosie Rueda; Alejandro Martinez; Yarely Sandoval; Nicole Plunkett; Hector Chowdhury; Pete Chisholm; Gayatri Wiggins; Chaitanya Baxter; Jaz Trevino; Vanessa Toussaint; Roby Alanis; Amish German Jr; Ree Herrera; Sabina Torres; Ronna Marsh; Dylon Weeks; Avni Andino; Sabina Valdez; Brady Santa; Marco A Finney; Frank Esqueda; Reji Martinez; Rachael Calvin; Megan Lloyd.; Sophie Hu; Hanane Rios; Petra Cabrera; Anaid Cherry; Miles Mobley Jr; Betty Winters; Jocelyn Ely; Dustin Cope; Ana Goldman; Gisela Rodriguez; Penny Vilchis; Jo Ann Kauffman Other Interventions: Discharge Summary Assessment (RN) Last Done: 02/18/25 16:00 Hospital Stay Data Consultations 02/14/25 19:44 ED Decision to Admit Stat 02/15/25 09:10 Consult Neurology Routine 02/15/25 09:12 Consult Cardiology Routine 02/15/25 18:42 Consult Anesthesiology Routine 02/17/25 15:33 Consult Infectious Diseases Routine Procedures Performed Operation Date: 02/16/25 10:00 Actual Procedures p Echo Transesophageal - Alexsander Birch MD s Echo Color Flow - Alexsander Birch MD s Echo Doppler Complete - Alexsander Birch MD Diagnostic Imagining Performed 02/14/25 16:47 CT angio head w con Stat CT angio neck with con Stat CT head/brain wo con Stat 02/14/25 20:23 MRI Brain [MR brain wo con] Stat 02/14/25 21:29 MRI Angio Brain [MR angio head wo con] Stat Pending Results Patient Have Any Pending Studies at Discharge: Yes Discharge Instructions Given to Patient (Per Discharging Provider) follow up with cardiology follow up with gastroenterology stay on blood thinner follow up with anticoagulation clinics Total Time Total Time Spent Total Time Spent (In Minutes): 35 minutes Coding Level of Care Code 20622 INP/OBS DISCH >30 MIN Diagnoses Vision problems H54.7 Stroke-like symptoms R29.90 HTN (hypertension) I10 Cerebral septic emboli I76; I66.9 Atrial fibrillation, permanent I48.21 Chronic anticoagulation Z79.01 Time Spent (min) 35
--- NOTE | 2025-02-18 20:37 | Electrocardiogram Report ---
Test Reason : Blood Pressure : */* mmHG Vent. Rate : 105 BPM Atrial Rate : * BPM P-R Int : * ms QRS Dur : 84 ms QT Int : 362 ms P-R-T Axes : * 34 -2 degrees QTcB Int : 478 ms Atrial fibrillation with rapid ventricular response with premature ventricular or aberrantly conducte d complexes Abnormal ECG When compared with ECG of 19-Nov-2024 13:18, Vent. rate has decreased by 53 bpm Confirmed by Alexsander Birch ([id number]) on 02/18/2025 8:36:56 PM Referred By: Confirmed By: Alexsander Birch
--- NOTE | 2025-02-19 05:30 | Electrocardiogram Report ---
Test Reason : Blood Pressure : */* mmHG Vent. Rate : 113 BPM Atrial Rate : * BPM P-R Int : * ms QRS Dur : 88 ms QT Int : 344 ms P-R-T Axes : * 51 8 degrees QTcB Int : 471 ms Atrial fibrillation with rapid ventricular response with premature ventricular or aberrantly conducte d complexes Abnormal ECG When compared with ECG of 14-Feb-2025 16:58, No significant change was found Confirmed by Alexsander Birch ([id number]) on 02/19/2025 5:30:07 AM Referred By: Ailyn Epperson Confirmed By: Alexsander Birch
[2025-02-20] MEDS ORDERED: WARFARIN SOD 6 MG TAB PO SCH (16:00)
== END 2025-02-18 15:59 | disposition home or self-care (01) | DRG 65 ==
LOC: ED 14:17 → EDINP 20:23 → SUATTDRO 20:23 → 1E 22:41 → 2E 02-16 18:53